=== PATIENT | male | born 1940 | race Caucasian/White ===

== ENCOUNTER 2015-11-28 13:05 | Outpatient (RCR) | payer MEDICARE ==
--- OUTSIDE RECORDS SUMMARY | 2015-11-21 09:10 | XMS REPORT | Continuity of Care Document ---
Author Author [facility] Organization [facility] Address Unknown Phone Unavailable Care Team Providers Care Residential Building Inspector Name Role Phone MARIS CARRANZA MD PCP Insurance Providers Payer Name Policy Number Subscriber Name Relationship Wps Medicare [id number] Tony Guan 18 Self / Same As Patient Blue Cross Mcr Supp [id number] Tony Guan 18 Self / Same As Patient Advance Directives Directive Response Recorded Date/Time Advance Directives No 02/25/14 11:07am Organ Donor No 02/25/14 11:07am Problems No problem information available. Medications Current Home Medications Medication Dose Units Route Directions Days/Qty Instructions Start Date Clopidogrel Bisulfate 75 Mg 75 Mg Oral 01/07/12 Valsartan/Hydrochlorothiazide 1 Each 1 Each Oral 01/07/12 Fluorometholone 5 Ml 5 Ml Ophthalmic 01/07/12 Latanoprost 2.5 Ml 2.5 Ml Ophthalmic 01/07/12 Simvastatin 20 Mg 20 Mg Oral 01/07/12 Ranolazine 1,000 Mg 500 Mg Oral Twice A Day 02/25/14 Rivaroxaban 20 Mg 20 Mg Oral Daily 02/25/14 Past Home Medications Medication Directions Ordered Status Ranitidine Hcl 50 Mg/2 Ml Vial, 75 Mg Oral 01/07/12 Discontinued Aspirin 81 Mg Tablet.dr, 81 Mg Oral 01/07/12 Discontinued Fluticasone Propionate 16 Gm Naspr, 16 Gm Nasal 01/07/12 Discontinued Social History Social History Problem Response Recorded Date/Time Alcohol Use Denies Use 02/25/2014 11:07am Recreational Drug Use No 02/25/2014 11:07am Recent Foreign Travel No 05/24/2015 9:08am Hospital Discharge Instructions No hospital discharge instructions. Plan of Care Prescriptions See Medication Section Functional Status No functional status results. Allergies, Adverse Reactions, Alerts No known allergies. Immunizations No immunization records. Vital Signs No known vital signs results. Results Laboratory Results Test Name Result Units Flags Reference Collection Date/Time Result Date/ Time Comments White Blood Count 7.0 10^3/uL 4.3-11.0 05/24/2015 9:36am 05/24/2015 9: 41am Red Blood Count 5.44 10^6/uL 4.35-5.85 05/24/2015 9:3605/24/2015 9: 41am Hemoglobin 15.2 G/DL 13.3-17.7 05/24/2015 9:3605/24/2015 9:41am Hematocrit 43 % 40-54 05/24/2015 9:3605/24/2015 9:41am Mean Corpuscular Volume 80 FL 80-99 05/24/2015 9:36am 05/24/2015 9: 41am Mean Corpuscular Hemoglobin 28 PG 25-34 05/24/2015 9:36am 05/24/2015 9: 41am Mean Corpuscular Hemoglobin Concent 35 G/DL 32-36 05/24/2015 9:3601/2016 9:41am Red Cell Distribution Width 14.6 % H 10.0-14.5 05/24/2015 9:36am 2015 9:41am Platelet Count 129 10^3/uL L 130-400 05/24/2015 9:36am 05/24/2015 9:41am Mean Platelet Volume 8.6 FL 7.4-10.4 05/24/2015 9:36am 05/24/2015 9: 41am Neutrophils (%) (Auto) 69 % 42-75 05/24/2015 9:36am 05/24/2015 9:41am Lymphocytes (%) (Auto) 21 % 12-44 05/24/2015 9:36am 05/24/2015 9:41am Monocytes (%) (Auto) 9 % 0-12 05/24/2015 9:3605/24/2015 9:41am Eosinophils (%) (Auto) 1 % 0-10 05/24/2015 9:3605/24/2015 9:41am Basophils (%) (Auto) 1 % 0-10 05/24/2015 9:3605/24/2015 9:41am Neutrophils # (Auto) 4.8 X 10^3 1.8-7.8 05/24/2015 9:3605/24/2015 9: 41am Lymphocytes # (Auto) 1.5 X 10^3 1.0-4.0 05/24/2015 9:3605/24/2015 9: 41am Monocytes # (Auto) 0.7 X 10^3 0.0-1.0 05/24/2015 9:3605/24/2015 9: 41am Eosinophils # (Auto) 0.1 10^3/uL 0.0-0.3 05/24/2015 9:3605/24/2015 9 :41am Basophils # (Auto) 0.0 10^3/uL 0.0-0.1 05/24/2015 9:3605/24/2015 9: 41am Sodium Level 139 MMOL/L 135-145 05/24/2015 9:3605/24/2015 10:14am Potassium Level 5.1 MMOL/L H 3.6-5.0 05/24/2015 9:3605/24/2015 10: 14am Chloride Level 105 MMOL/L 98-107 05/24/2015 9:3605/24/2015 10:14am Carbon Dioxide Level 26 MMOL/L 21-32 05/24/2015 9:3605/24/2015 10: 14am Anion Gap 8 MMOL/L 5-14 05/24/2015 9:3605/24/2015 10:14am Blood Urea Nitrogen 23 MG/DL H 7-18 05/24/2015 9:3605/24/2015 10:14am Creatinine 1.44 MG/DL H 0.60-1.30 05/24/2015 9:36am 05/24/2015 10:14am BUN/Creatinine Ratio 16 05/24/2015 9:3605/24/2015 10:14am Estimat Glomerular Filtration Rate 48 05/24/2015 9:36am 05/24/2015 10:14am GFR INTERPRETIVE DATA UNITS FOR ESTIMATED GFR (eGFR): mL/min/1.73 M2 REFERENCE RANGE FOR ESTIMATED GFR (eGFR) eGFR NORMAL eGFR >60 MODERATELY DECREASED eGFR 30-59 SEVERLY DECREASED eGFR 15-29 KIDNEY FAILURE <15 (OR DIALYSIS) Glucose Level 99 MG/DL 70-105 05/24/2015 9:36am 05/24/2015 10:14am Calcium Level 9.4 MG/DL 8.5-10.1 05/24/2015 9:36am 05/24/2015 10:14am Total Bilirubin 1.1 MG/DL H 0.1-1.0 05/24/2015 9:36am 05/24/2015 10:14am Alkaline Phosphatase 88 U/L 40-136 05/24/2015 9:36am 05/24/2015 10: 14am Aspartate Amino Transf (AST/SGOT) 22 U/L 5-34 05/24/2015 9:36am 2015 10:14am Alanine Aminotransferase (ALT/SGPT) 19 U/L 0-55 05/24/2015 9:36am 05/23 10:14am Total Protein 7.1 G/DL 6.4-8.2 05/24/2015 9:36am 05/24/2015 10:14am Albumin 4.3 G/DL 3.2-4.5 05/24/2015 9:36am 05/24/2015 10:14am Ferritin 55 ng/mL 25-300 05/24/2015 9:36am 05/25/2015 9:52am Test performed at [facility], CLIA# [id number] Iron Level 77 ug/dL 40-180 05/24/2015 9:36am 05/25/2015 9:51am Transferrin % Saturation 25 % 15-50 05/24/2015 9:36am 05/25/2015 9: 51am Total Iron Binding Capacity 313 ug/dL 280-380 05/24/2015 9:36am 2015 9:51am Unsaturated Iron Binding Capacity 236 ug/dL 55-450 05/24/2015 9:36am 9:51am Test performed at [facility], CLIA# [id number] Procedures No known history of procedures. Encounters Encounter Location Arrival/Admit Date Discharge/Depart Date Attending Provider Discharged Recurring [facility] 05/31/15 9:33am 11:59pm DAPHNE RICHARDSON MD
[2015-11-21 09:38] LABS: BASOPHILS % (AUTO) 0 % (0-10); EOSINOPHILS # (AUTO) 0.1 10^3/uL (0.0-0.3); EOSINOPHILS % (AUTO) 1 % (0-10); LYMPHOCYTES # (AUTO) 1.4 X 10^3 (1.0-4.0); LYMPHOCYTES % (AUTO) 19 % (12-44); MEAN CORPUSCULAR HEMOGLOBIN 29 PG (25-34); MEAN CORPUSCULAR HGB CONC 36 G/DL (32-36); MEAN CORPUSCULAR VOLUME 80 FL (80-99); MEAN PLATELET VOLUME 8.4 FL (7.4-10.4); MONOCYTES # (AUTO) 0.6 X 10^3 (0.0-1.0); MONOCYTES % (AUTO) 8 % (0-12); NEUTROPHILS # (AUTO) 5.2 X 10^3 (1.8-7.8); NEUTROPHILS % (AUTO) 71 % (42-75); PLATELET COUNT 129 10^3/uL (130-400); RED BLOOD COUNT 5.47 10^6/uL (4.35-5.85); RED CELL DISTRIBUTION WIDTH 13.8 % (10.0-14.5); WHITE BLOOD COUNT 7.3 10^3/uL (4.3-11.0)
[2015-11-21 10:08] LABS: ALBUMIN 4.2 G/DL (3.2-4.5); BILIRUBIN,TOTAL 0.8 MG/DL (0.1-1.0); CALCIUM 9.2 MG/DL (8.5-10.1); CREATININE SERUM 1.19 MG/DL (0.60-1.30); POTASSIUM 4.3 MMOL/L (3.6-5.0); TOTAL PROTEIN 7.1 G/DL (6.4-8.2)
[2015-11-21 11:44] LABS: %SAT TOTAL IRON BINDING CAPIC 20 % (15-50); TIBC 322 ug/dL (280-380)
[2015-11-21 17:23] LABS: UIBC 258 ug/dL (55-450)
[2015-11-22 07:52] LABS: FERRITIN 43 ng/mL (25-300)
[~2015-11-28 13:05] MED LIST: ASPI-875 PO; CLOP75TA28 PO; FLUO5DRO7 OP; FLUT16SP22 NS; LATA2.5D5 OP; RANO10003 PO; RIVA20TA2 PO; RNT25V2 PO; SIMV20TA3 PO; VALS1TAB74 PO
[2015-11-28] MEDS ORDERED: FLU TRIvalent (5 YOA+) 2016-17 (CANCER CTR) 0.5 ML IM ONE (14:00)
== END 2016-02-19 | disposition home or self-care (01) ==
LOC: ONC 13:05
PROVIDERS: ATTEND Internal Medicine Hematology & Oncology
DX: D50.9 Iron deficiency anemia, unspecified (principal); I10 Essential (primary) hypertension; I25.10 Atherosclerotic heart disease of native coronary artery without angina pectoris; Z95.0 Presence of cardiac pacemaker; Z95.5 Presence of coronary angioplasty implant and graft; Z79.899 Other long term (current) drug therapy; Z79.01 Long term (current) use of anticoagulants; Z23 Encounter for immunization
CPT/HCPCS: 80053; 82728; 83540; 85025; 90471; 99213

== ENCOUNTER 2016-03-28 18:14 | Emergency (ER) | payer MEDICARE ==
[~2016-03-28] VITALS: Ht 167.6 cm; Wt 88.5 kg
--- OUTSIDE RECORDS SUMMARY | 2016-03-28 18:19 | XMS REPORT | Continuity of Care Document ---
Author Author [facility] Organization [facility] Address Unknown Phone Unavailable Care Team Providers Care Dormitory Keeper Name Role Phone MARIS CARRANZA MD PCP Insurance Providers Payer Name Policy Number Subscriber Name Relationship Wps Medicare [id number] Tony Guan 18 Self / Same As Patient Blue Cross Mcr Supp [id number] Tony Guan 18 Self / Same As [...] 05/24/2015 9:36am 05/25/2015 9:52am Test performed at [facility], CLIA# [id number] Iron Level 77 ug/dL 40-180 05/24/2015 9:36am 05/25/2015 9:51am Transferrin % Saturation 25 % 15-50 05/24/2015 9:36am 05/25/2015 9: 51am Total Iron Binding Capacity 313 ug/dL 280-380 05/24/2015 9:36am 2015 9:51am Unsaturated Iron Binding Capacity 236 ug/dL 55-450 05/24/2015 9:36am 9:51am Test performed at [facility], CLIA# [id number] Procedures No known history of procedures. Encounters Encounter Location Arrival/Admit Date Discharge/Depart Date Attending Provider Discharged Recurring [facility] 05/31/15 9:33am 11:59pm DAPHNE RICHARDSON MD
[2016-03-28] MEDS ORDERED: AMIODARONE FOR BOLUS 300 MG in D5W 100 ML IVPB 100 ML IV ONE (18:45)
[2016-03-28] MEDS ORDERED: ASPIRIN 81 MG CHEW (CHILDREN'S ASA) PO ONE (18:45)
[2016-03-28 18:46] LABS: BASOPHILS # (AUTO) 0.1 10^3/uL (0.0-0.1); BASOPHILS % (AUTO) 1 % (0-10); EOSINOPHILS # (AUTO) 0.1 10^3/uL (0.0-0.3); EOSINOPHILS % (AUTO) 1 % (0-10); LYMPHOCYTES # (AUTO) 1.9 X 10^3 (1.0-4.0); LYMPHOCYTES % (AUTO) 21 % (12-44); MEAN CORPUSCULAR HEMOGLOBIN 28 PG (25-34); MEAN CORPUSCULAR HGB CONC 35 G/DL (32-36); MEAN CORPUSCULAR VOLUME 80 FL (80-99); MEAN PLATELET VOLUME 10.8 FL (7.4-10.4); MONOCYTES # (AUTO) 0.8 X 10^3 (0.0-1.0); MONOCYTES % (AUTO) 9 % (0-12); NEUTROPHILS % (AUTO) 68 % (42-75); PLATELET COUNT 127 10^3/uL (130-400); RED BLOOD COUNT 5.37 10^6/uL (4.35-5.85); RED CELL DISTRIBUTION WIDTH 14.6 % (10.0-14.5); WHITE BLOOD COUNT 8.8 10^3/uL (4.3-11.0)
[2016-03-28 18:56] LABS: INR 1.1 (0.8-1.4); PROTHROMBIN TIME PATIENT 13.6 SEC (12.2-14.7)
[2016-03-28] MEDS: AMIODARONE IV SOLUTION 200 ML IV SCH ×2 (18:56→19:07)
[2016-03-28] MEDS ORDERED: LORazepam INJ 2 MG/ML (ATIVAN) VIAL ONE (19:02)
[2016-03-28 19:07] LABS: ALANINE AMINOTRANSFERASE 21 U/L (0-55); ALBUMIN 4.1 G/DL (3.2-4.5); ANION GAP 11 MMOL/L (5-14); ASPARTATE AMINO TRANSFERASE 23 U/L (5-34); BILIRUBIN,TOTAL 0.8 MG/DL (0.1-1.0); BLOOD UREA NITROGEN 20 MG/DL (7-18); BUN/CREATININE RATIO 13; CALCIUM 8.7 MG/DL (8.5-10.1); CARBON DIOXIDE 19 MMOL/L (21-32); CHLORIDE 108 MMOL/L (98-107); CREATINE KINASE 88 U/L (30-200); CREATININE SERUM 1.55 MG/DL (0.60-1.30); GFR ESTIMATED 44; GLUCOSE 114 MG/DL (70-105); MAGNESIUM 2.2 MG/DL (1.8-2.4); POTASSIUM 4.2 MMOL/L (3.6-5.0); SODIUM 138 MMOL/L (135-145); TOTAL PROTEIN 7.1 G/DL (6.4-8.2)
--- NOTE | 2016-03-28 19:10 | Diagnostic Imaging Report ---
INDICATION: Chest pain, pacemaker. COMPARISON: 02/07/2016. FINDINGS: Single view of the chest demonstrates mild but stable cardiac enlargement. Lungs are clear. There is no pneumothorax. Pacemaker is stable. IMPRESSION: Minimal cardiac enlargement without pulmonary edema. Dictated by: Dictated on workstation # [id number]
[2016-03-28] MEDS ORDERED: LORazepam INJ 2 MG/ML (ATIVAN) VIAL IVP ONE ×2 (19:15→21:30)
[2016-03-28 19:26] LABS: TROPONIN I < 0.30 NG/ML (<0.30)
--- NOTE | 2016-03-28 19:29 | ED Cardiac General ---
History of Present Illness General Chief Complaint: Cardiac/General Problems Stated Complaint: DEFIBULATOR WENT OFF Nursing Triage Note: PT FROM HOME DEFIBRILLATOR HAD GONE OFF AT HOME.PT STATES HAD NEVER GONE OFF BEFORE. PT DENIES C/P AT THIS X. DR LEGGETT TO ROOM. Source: patient History of Present Illness Time seen by provider: 18:23 Initial Comments PT ARRIVES VIA POV FROM HOME PT HAD DEFIBRILLATOR AND AV PACEMAKER PLACED 02/01/[address] ESPINOZA AT [facility] IN [place], [place] IS TO HAVE PACEMAKER LEAD ADJUSTMENT THERE ON Saturday03/30/16 IT IS NOT FIRING CORRECTLY PT STATES TONIGHT HE WAS SITTING IN A CHAIR AND HAVING A "VERBAL DISPUTE" WHEN HIS DEFIBRILLATOR DISCHARGED ( HAS NOT HAPPENED BEFORE)--OCCURRED IMMEDIATELY PRIOR TO ARRIVAL--LESS THAN 10 MINUTES PT DENIES ANY SYMPTOMS BEFORE IT DISCHARGED, BUT FELT LIKE HIS HEART WAS POUNDING AFTERWARD NO CHEST PAIN NO SENSE OF PALPITATIONS NO SHORTNESS OF BREATH NO SWEATS NO NAUSEA PT HAS NO SYMPTOMS AT THIS TIME NO PCP ANYWHERE VISCOSE CELLAR WORKER: DR. ESPINOZA AT [facility] IN [place], [place] Allergies and Home Medications Allergies Coded Allergies: No Known Drug Allergies (Unverified , 01/07/12) Home Medications Clopidogrel Bisulfate 75 Mg Tablet 75 MG PO (Reported) Fluorometholone 5 Ml Drops.susp 5 ML OP (Reported) Latanoprost 2.5 Ml Drops 2.5 ML OP (Reported) Ranolazine 1,000 Mg Tab.sr.12h 500 MG PO BID (Reported) Rivaroxaban 20 Mg Tablet 20 MG PO DAILY (Reported) Simvastatin 20 Mg Tablet 20 MG PO (Reported) Valsartan/Hydrochlorothiazide 1 Each Tablet 1 EACH PO (Reported) Review of Systems Constitutional: no symptoms reported Respiratory: No Symptoms Reported Cardiovascular: See HPI Gastrointestinal: No Symptoms Reported Genitourinary: No Symptoms Reported Musculoskeletal: no symptoms reported Skin: no symptoms reported Psychiatric/Neurological: See HPI Endocrine: No Symptoms Reported Hematologic/Lymphatic: No Symptoms Reported Past Lojajnt-Gqrisd-Xcdyez Hx Patient Social History Alcohol Use: Denies Use Recreational Drug Use: No Smoking Status: Never a Smoker Recent Foreign Travel: No Contact w/Someone Who Travel: No Recent Infectious Disease Expo: No Recent Hopitalizations: Yes Immunizations Up To Date Date of Influenza Vaccine: Dec 13, 2015 Seasonal Allergies Seasonal Allergies: Yes Surgeries HX Surgeries: Yes (CARDIAC CATH-STENTS) Surgeries: Appendectomy, Cardiac, Coronary Stent, Defibrillator, Pacemaker Respiratory Hx Respiratory Disorders: Yes Respiratory Disorders: Pneumonia Cardiovascular Hx Cardiac Disorders: Yes (PACEMAKER/DEFIBRILLATOR) Cardiac Disorders: Coronary Artery Disease, High Cholesterol, Hypertension, Irregular Heartbeat Neurological Hx Neurological Disorders: No Genitourinary Hx Genitourinary Disorders: No Gastrointestinal Hx Gastrointestinal Disorders: No Musculoskeletal Hx Musculoskeletal Disorders: No Endocrine Hx Endocrine Disorders: No HEENT HX ENT Disorders: Yes (BI LAT CATARACT SURGERY) HEENT Disorders: Cataract Cancer Hx Cancer: No Psychosocial Hx Psychiatric Problems: No Integumentary HX Skin/Integumentary Disorder: No Blood Transfusions Hx Blood Disorders: No Family Medical History Family Medial History: FH: breast cancer 19 MOTHER FH: lung cancer 19 FATHER Physical Exam Vital Signs Vital Sign - Last 12Hours 03/28/16 18:30 Temp 97.7 Pulse 33 Resp 18 B/P 210/104 Pulse Ox 99 O2 Delivery Nasal Cannula Capillary Refill : Less Than 3 Seconds General Appearance: No Apparent Distress WD/WN Anxious HEENT: PERRL/EOMI Neck: Full Range of Motion Normal Inspection Non Tender SuppleNo JVD Respiratory: Normal Breath Sounds No Accessory Muscle Use No Respiratory Distress Cardiovascular: Regular Rate, Rhythm No Edema No JVD No Murmur Normal Peripheral Pulses Gastrointestinal: Normal Bowel Sounds No Organomegaly No Pulsatile Mass Non Tender Soft Extremity: Normal Capillary Refill Normal Inspection Normal Range of Motion Non Tender No Calf Tenderness No Pedal Edema Neurologic/Psychiatric: Alert Oriented x3 No Motor/Sensory Deficits supplier quality engineer II- XII Norm as Tested Skin: Normal Color Warm/Dry Progress/Results/Core Measures Results/Orders Lab Results Laboratory Tests Test 03/28/16 18:35 Range/Units Activated Partial Thromboplast Time 33 24-35 SEC Alanine Aminotransferase (ALT/SGPT) 21 0-55 U/L Albumin 4.1 3.2-4.5 G/DL Alkaline Phosphatase 110 40-136 U/L Anion Gap 11 5-14 MMOL/L Aspartate Amino Transf (AST/SGOT) 23 5-34 U/L B-Type Natriuretic Peptide 510.2 H <100.0 PG/ML BUN/Creatinine Ratio 13 Basophils # (Auto) 0.1 0.0-0.1 10^3/uL Basophils (%) (Auto) 1 0-10 % Blood Urea Nitrogen 20 H 7-18 MG/DL Calcium Level 8.7 8.5-10.1 MG/DL Carbon Dioxide Level 19 L 21-32 MMOL/L Chloride Level 108 H 98-107 MMOL/L Creatine Kinase MB 2.1 <6.6 NG/ML Creatinine 1.55 H 0.60-1.30 MG/DL Eosinophils # (Auto) 0.1 0.0-0.3 10^3/uL Eosinophils (%) (Auto) 1 0-10 % Estimat Glomerular Filtration Rate 44 Glucose Level 114 H 70-105 MG/DL Hematocrit 43 40-54 % Hemoglobin 14.8 13.3-17.7 G/DL INR Comment 1.1 0.8-1.4 Lymphocytes # (Auto) 1.9 1.0-4.0 X 10^3 Lymphocytes (%) (Auto) 21 12-44 % Magnesium Level 2.2 1.8-2.4 MG/DL Mean Corpuscular Hemoglobin 28 25-34 PG Mean Corpuscular Hemoglobin Concent 35 32-36 G/DL Mean Corpuscular Volume 80 80-99 FL Mean Platelet Volume 10.8 H 7.4-10.4 FL Monocytes # (Auto) 0.8 0.0-1.0 X 10^3 Monocytes (%) (Auto) 9 0-12 % Neutrophils # (Auto) 6.0 1.8-7.8 X 10^3 Neutrophils (%) (Auto) 68 42-75 % Platelet Count 127 L 130-400 10^3/uL Potassium Level 4.2 3.6-5.0 MMOL/L Prothrombin Time 13.6 12.2-14.7 SEC Red Blood Count 5.37 4.35-5.85 10^6/uL Red Cell Distribution Width 14.6 H 10.0-14.5 % Sodium Level 138 135-145 MMOL/L TSH Bromide Testing 3.85 0.35-4.94 UIU/ML Total Bilirubin 0.8 0.1-1.0 MG/DL Total Creatine Kinase 88 30-200 U/L Total Protein 7.1 6.4-8.2 G/DL Troponin I < 0.30 <0.30 NG/ML White Blood Count 8.8 4.3-11.0 10^3/uL My Orders Orders-DAVID LEGGETT DO Saline Lock/Iv-Start (03/28/16 18:39) Ekg Tracing (03/28/16 18:39) O2 (03/28/16 18:39) Monitor-Rhythm Ecg Trace Only (03/28/16 18:39) BNP (03/28/16 18:39) Cbc With Automated Diff (03/28/16 18:39) Comprehensive Metabolic Panel (03/28/16 18:39) Creatine Kinase (03/28/16 18:39) Creatine Kinase Mb (03/28/16 18:39) Magnesium (03/28/16 18:39) Protime With Inr (03/28/16 18:39) Partial Thromboplastin Time (03/28/16 18:39) Thyroid Analyzer (03/28/16 18:39) Troponin I (03/28/16 18:39) Chest 1 View, Ap/Pa Only (03/28/16 18:39) Amiodarone For Bolus (Cordarone Bolus) (03/28/16 18:45) Amiodarone Iv Solution (Nexterone Iv Delfina (03/28/16 18:45) Aspirin Chewable Tablet (Baby Aspirin Ch (03/28/16 18:45) Lorazepam Injection (Ativan Injection) (03/28/16 19:02) Lorazepam Injection (Ativan Injection) (03/28/16 19:15) Lorazepam Injection (Ativan Injection) (03/28/16 21:30) Medications Given in ED Current Medications Medications Dose Ordered Sig/Manohar Route Start Time Stop Time Status Last Admin Dose Admin Amiodarone HCl/ Dextrose 106 ml @ 636 mls/hr ONCE ONCE IV 03/28/16 18:45 03/28/16 18:54 DC 03/28/16 19:06 636 MLS/HR Aspirin 324 mg ONCE ONCE PO 03/28/16 18:45 03/28/16 18:47 DC 03/28/16 18:58 324 MG Lorazepam 1 mg ONCE ONCE IVP 03/28/16 19:15 03/28/16 19:16 DC 03/28/16 19:07 1 MG Lorazepam 1 mg ONCE ONCE IVP 03/28/16 21:30 03/28/16 21:34 DC 03/28/16 20:00 1 MG Vital Signs/I&O Vital Sign - Last 12Hours 03/28/16 03/28/16 03/28/16 18:30 18:30 20:00 Temp 97.7 Pulse 33 36 Resp 18 18 B/P 210/104 Pulse Ox 99 99 99 O2 Delivery Nasal Cannula Blood Pressure Mean: 139 Progress Note : Progress Note ON ARRIVAL, PT WITH VENTRICULAR PACING AT 35 BPM, 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 PT VERY BRIEFLY HAD SENSATION OF IRREGULAR HEART BEAT IMMEDIATELY PRIOR TO DEFIBRILLATOR DISCHARGE. PT WITH NO SYMPTOMS AFTERWARD, OTHER THAN BEING VERY ANXIOUS 1900--PT AGAIN IN V-FIB AND DEFIBRILLATOR DISCHARGED APPROPRIATELY, AND HAD THE EXACT SAME SCENARIO ABOVE. NO FURTHER EPISODES AFTER AMIODARONE STARTED ECG EKG : Comment EKG #1 AT 18:32:08--DONE IMMEDIATELY AFTER DEFIBRILLATOR DISCHARGED- 100% A-V PACED, RATE OF 85 EKG #2 AT 18:32:55--RATE 48, A-V PACED EKG #3 AT 18:34--RATE 35--A-V PACED WITH RANDOM P-WAVES WITHOUT CAPTURE EKG #4 AT 184--RATE ??--INTERMITTENT A-V PACED AND VENTRICULAR PACED RHYTHM EKG #5 AT 185--RATE 94--INTERMITTENT A-V PACED AND VENTRICULAR PACED RHYTHM EKG #6 AT 185--RATE 85--100% A-V PACED EKG #7 AT 1903--V-PACED INTO WIDE-COMPLEX TACHYCARDIA WITH DEFIBRILLATOR DISCHARGE EKG #8 AT 1903--RATE 85 --100% A-V PACED Diagnostic Imaging Comments CXR--MILD CARDIOMEGALY WITHOUT FAILURE PER RADIOLOGIST REPORT @ 1929 Reviewed: Reviewed by Me Departure Communication Progress Notes --SPOKE WITH DR. HARRISON, VISCOSE CELLAR WORKER NETWORK DESIGNER. HE ADVISES TO GIVE AMIODARONE BOLUS AND THEN DRIP, AND TRANSFER TO HIS VISCOSE CELLAR WORKER, DR. ESPINOZA. 1844--CALLED [facility]. ER [phone] 1854--SPOKE WITH DR. MARTINEZ, ER PHYSICIAN. SHE STATES THEY DO NOT DO ER-TO-ER TRANSFERS, ONLY DIRECT ADMITS. SHE ADVISES THAT I CALL DR. ESPINOZA DIRECTLY AT [phone]--SPOKE WITH DR. ESPINOZA, ACCEPTS PT FOR DIRECT ADMIT 1901--CALLED [facility] AGAIN FOR BED ASSIGNMENT--CALL TURNED OVER TO DELANEY NUÑEZ RN, BILL PEDDLER FOR BED ASSIGNMENT. 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 Referrals: NO,LOCAL PHYSICIAN (PCP/Family) Primary Care Physician DAVID LEGGETT DO Mar 28, 2016 19:29
[2016-03-28 20:00] VITALS: BP 162/90
== END 2016-03-28 20:00 | disposition short-term general hospital (02) ==
LOC: EDUNIT# 18:14 → ER 18:15
DX: T82.118A Breakdown (mechanical) of other cardiac electronic device, initial encounter (principal); R00.0 Tachycardia, unspecified; I10 Essential (primary) hypertension; I25.10 Atherosclerotic heart disease of native coronary artery without angina pectoris; Z79.899 Other long term (current) drug therapy; Z95.5 Presence of coronary angioplasty implant and graft
CPT/HCPCS: 36415; 71010; 80053; 82550; 82553; 83735; 83880; 84443; 84484; 85025; 85610; 85730; 93005; 93041; 96374; 96375; 96376

== ENCOUNTER 2016-03-31 19:24 | Emergency (ER) | payer MEDICARE ==
[~2016-03-31] VITALS: Ht 172.7 cm; Wt 81.6 kg
--- OUTSIDE RECORDS SUMMARY | 2016-03-31 19:29 | XMS REPORT | Continuity of Care Document ---
Author Author [facility] Organization [facility] Address Unknown Phone Unavailable Care Team Providers Care Loom Mechanic Name Role Phone MARIS CARRANZA MD PCP Insurance Providers Payer Name Policy Number Subscriber Name Relationship Wps Medicare [id number] Tnoy Guan 18 Self / Same As Patient Blue Cross Mcr Supp [id number] Tony Guan 18 Self / Same As [...] 05/24/2015 9:36am 05/25/2015 9:52am Test performed at [facility], CLIA# [id number] Iron Level 77 ug/dL 40-180 05/24/2015 9:36am 05/25/2015 9:51am Transferrin % Saturation 25 % 15-50 05/24/2015 9:36am 05/25/2015 9: 51am Total Iron Binding Capacity 313 ug/dL 280-380 05/24/2015 9:36am 2015 9:51am Unsaturated Iron Binding Capacity 236 ug/dL 55-450 05/24/2015 9:36am 9:51am Test performed at [facility], CLIA# [id number] Procedures No known history of procedures. Encounters Encounter Location Arrival/Admit Date Discharge/Depart Date Attending Provider Discharged Recurring [facility] 05/31/15 9:33am 11:59pm DAPHNE RICHARDSON MD
[2016-03-31 19:52] LABS: BASOPHILS % (AUTO) 1 % (0-10); EOSINOPHILS # (AUTO) 0.1 10^3/uL (0.0-0.3); EOSINOPHILS % (AUTO) 2 % (0-10); LYMPHOCYTES # (AUTO) 1.5 X 10^3 (1.0-4.0); LYMPHOCYTES % (AUTO) 17 % (12-44); MEAN CORPUSCULAR HEMOGLOBIN 27 PG (25-34); MEAN CORPUSCULAR HGB CONC 35 G/DL (32-36); MEAN CORPUSCULAR VOLUME 78 FL (80-99); MEAN PLATELET VOLUME 9.2 FL (7.4-10.4); MONOCYTES # (AUTO) 1.2 X 10^3 (0.0-1.0); MONOCYTES % (AUTO) 14 % (0-12); NEUTROPHILS % (AUTO) 68 % (42-75); PLATELET COUNT 136 10^3/uL (130-400); RED BLOOD COUNT 5.26 10^6/uL (4.35-5.85); RED CELL DISTRIBUTION WIDTH 14.5 % (10.0-14.5); WHITE BLOOD COUNT 8.8 10^3/uL (4.3-11.0)
[2016-03-31 20:02] LABS: INR 1.2 (0.8-1.4)
--- NOTE | 2016-03-31 20:06 | Diagnostic Imaging Report ---
INDICATION: Recent pacemaker placement. Chest pain COMPARISON: 03/28/2016 FINDINGS: Single frontal view of the chest demonstrates normal heart size and pulmonary vascularity. Left-sided AICD is noted. The lungs are well aerated and clear. No large pleural effusion or pneumothorax is seen. The visualized osseous structures show no acute abnormalities. IMPRESSION: 1. No acute cardiopulmonary process. Dictated by: Dictated on workstation # [id number]
[2016-03-31 20:24] LABS: ALANINE AMINOTRANSFERASE 14 U/L (0-55); ALBUMIN 3.9 G/DL (3.2-4.5); ANION GAP 10 MMOL/L (5-14); ASPARTATE AMINO TRANSFERASE 16 U/L (5-34); BILIRUBIN,TOTAL 1.3 MG/DL (0.1-1.0); BLOOD UREA NITROGEN 23 MG/DL (7-18); BUN/CREATININE RATIO 17; CALCIUM 8.6 MG/DL (8.5-10.1); CARBON DIOXIDE 20 MMOL/L (21-32); CHLORIDE 106 MMOL/L (98-107); CREATININE SERUM 1.36 MG/DL (0.60-1.30); GFR ESTIMATED 51; GLUCOSE 119 MG/DL (70-105); MAGNESIUM 2.1 MG/DL (1.8-2.4); SODIUM 136 MMOL/L (135-145); TOTAL PROTEIN 6.7 G/DL (6.4-8.2)
[2016-03-31 20:33] LABS: MYOGLOBIN SERUM 80.3 NG/ML (10.0-92.0)
[2016-03-31] MEDS ORDERED: ALPR0.25 PO (21:42)
--- NOTE | 2016-03-31 21:43 | ED Cardiac General ---
History of Present Illness General Chief Complaint: Cardiac/General Problems Stated Complaint: CHEST PAIN Nursing Triage Note: Pt had feeling of heat to back of head/neck. States he had the same feeling prior to discharge of his defibrillator last Sat. Pt was transferred to [facility] on Sat due to his defibrillator firing. Source: patient, old records Exam Limitations: no limitations History of Present Illness Time seen by provider: 19:30 Initial Comments This 75-year-old gentleman presents to the emergency room with primary complaint of feeling flushed and having palpitations. He was recently seen in this emergency room for arrhythmias and defibrillator dysfunction. He was transferred to [facility] under the care of his training director, Dr. Mcmullen. A pacemaker lead was replaced and he was dismissed home. Symptoms started approximately 15 minutes prior to arrival. Patient states the sensation is similar to prodrome see had before prior defibrillator shocks. He denies chest pain. Allergies and Home Medications Allergies Coded Allergies: No Known Drug Allergies (Unverified , 01/07/12) Home Medications Alprazolam 0.25 Mg Tablet #10 1-2 TAB PO Q6H PRN PRN ANXIETY Prescribed by: LEANN HWANG on 03/31/162141 Clopidogrel Bisulfate 75 Mg Tablet 75 MG PO (Reported) Fluorometholone 5 Ml Drops.susp 5 ML OP (Reported) Latanoprost 2.5 Ml Drops 2.5 ML OP (Reported) Ranolazine 1,000 Mg Tab.sr.12h 500 MG PO BID (Reported) Rivaroxaban 20 Mg Tablet 20 MG PO DAILY (Reported) Simvastatin 20 Mg Tablet 20 MG PO (Reported) Valsartan/Hydrochlorothiazide 1 Each Tablet 1 EACH PO (Reported) Review of Systems Constitutional: no symptoms reported EENTM: No Symptoms Reported Respiratory: See HPI Cardiovascular: See HPI Gastrointestinal: No Symptoms Reported Genitourinary: No Symptoms Reported Musculoskeletal: no symptoms reported Skin: other (postoperative changes to the left chest) Psychiatric/Neurological: Anxiety Endocrine: No Symptoms Reported Past Apqjqrg-Cworyz-Dixwhe Hx Patient Social History Alcohol Use: Denies Use Recreational Drug Use: No Smoking Status: Unknown if Ever Smoked Recent Foreign Travel: No Contact w/Someone Who Travel: No Recent Infectious Disease Expo: No Recent Hopitalizations: Yes Immunizations Up To Date Date of Influenza Vaccine: Dec 13, 2015 Seasonal Allergies Seasonal Allergies: Yes Surgeries HX Surgeries: Yes (CARDIAC CATH-STENTS) Surgeries: Appendectomy, Cardiac, Coronary Stent, Defibrillator, Pacemaker Respiratory Hx Respiratory Disorders: Yes Respiratory Disorders: Pneumonia Cardiovascular Hx Cardiac Disorders: Yes (PACEMAKER/DEFIBRILLATOR) Cardiac Disorders: Atrial Fibrillation, Coronary Artery Disease, High Cholesterol, Hypertension, Irregular Heartbeat Neurological Hx Neurological Disorders: No Genitourinary Hx Genitourinary Disorders: No Gastrointestinal Hx Gastrointestinal Disorders: No Musculoskeletal Hx Musculoskeletal Disorders: No Endocrine Hx Endocrine Disorders: No HEENT HX ENT Disorders: Yes (BI LAT CATARACT SURGERY) HEENT Disorders: Cataract Cancer Hx Cancer: No Psychosocial Hx Psychiatric Problems: No Integumentary HX Skin/Integumentary Disorder: No Blood Transfusions Hx Blood Disorders: No Family Medical History Family Medial History: FH: breast cancer 19 MOTHER FH: lung cancer 19 FATHER Physical Exam Vital Signs Vital Sign - Last 12Hours 03/31/16 19:24 Temp 97.5 Pulse 86 Resp 20 B/P 165/89 Pulse Ox 98 O2 Delivery Room Air Capillary Refill : Less Than 3 Seconds General Appearance: No Apparent Distress Mild Distress HEENT: PERRL/EOMI Normal ENT Inspection Neck: Normal Inspection Supple Respiratory: Lungs Clear Normal Breath Sounds No Accessory Muscle Use Cardiovascular: Regular Rate, Rhythm No Edema No Murmur Gastrointestinal: Non Tender Soft Extremity: Normal Inspection No Pedal Edema Neurologic/Psychiatric: Alert Oriented x3 No 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 as Tested Other (somewhat anxious) Skin: Warm/Dry Erythema Other (heat and erythema of the left upper chest operative sites.) Progress/Results/Core Measures Results/Orders Lab Results Laboratory Tests Test 03/31/16 19:40 Range/Units Activated Partial Thromboplast Time 38 H 24-35 SEC Alanine Aminotransferase (ALT/SGPT) 14 0-55 U/L Albumin 3.9 3.2-4.5 G/DL Alkaline Phosphatase 108 40-136 U/L Anion Gap 10 5-14 MMOL/L Aspartate Amino Transf (AST/SGOT) 16 5-34 U/L BUN/Creatinine Ratio 17 Basophils # (Auto) 0.0 0.0-0.1 10^3/uL Basophils (%) (Auto) 1 0-10 % Blood Urea Nitrogen 23 H 7-18 MG/DL C-Reactive Protein High Sensitivity 4.90 H 0.00-0.50 MG/DL Calcium Level 8.6 8.5-10.1 MG/DL Carbon Dioxide Level 20 L 21-32 MMOL/L Chloride Level 106 98-107 MMOL/L Creatinine 1.36 H 0.60-1.30 MG/DL Eosinophils # (Auto) 0.1 0.0-0.3 10^3/uL Eosinophils (%) (Auto) 2 0-10 % Estimat Glomerular Filtration Rate 51 Glucose Level 119 H 70-105 MG/DL Hematocrit 41 40-54 % Hemoglobin 14.4 13.3-17.7 G/DL INR Comment 1.2 0.8-1.4 Lactic Acid Level 1.9 0.5-2.0 MMOL/L Lymphocytes # (Auto) 1.5 1.0-4.0 X 10^3 Lymphocytes (%) (Auto) 17 12-44 % Magnesium Level 2.1 1.8-2.4 MG/DL Mean Corpuscular Hemoglobin 27 25-34 PG Mean Corpuscular Hemoglobin Concent 35 32-36 G/DL Mean Corpuscular Volume 78 L 80-99 FL Mean Platelet Volume 9.2 7.4-10.4 FL Monocytes # (Auto) 1.2 H 0.0-1.0 X 10^3 Monocytes (%) (Auto) 14 H 0-12 % Myoglobin 80.3 10.0-92.0 NG/ML Neutrophils # (Auto) 6.0 1.8-7.8 X 10^3 Neutrophils (%) (Auto) 68 42-75 % Platelet Count 136 130-400 10^3/uL Potassium Level 4.0 3.6-5.0 MMOL/L Prothrombin Time 15.0 H 12.2-14.7 SEC Red Blood Count 5.26 4.35-5.85 10^6/uL Red Cell Distribution Width 14.5 10.0-14.5 % Sodium Level 136 135-145 MMOL/L Total Bilirubin 1.3 H 0.1-1.0 MG/DL Total Protein 6.7 6.4-8.2 G/DL Troponin I < 0.30 <0.30 NG/ML White Blood Count 8.8 4.3-11.0 10^3/uL My Orders Orders-LEANN MORENO MD Cbc With Automated Diff (03/31/16 19:35) Magnesium (03/31/16 19:35) Chest 1 View, Ap/Pa Only (03/31/16 19:35) Ekg Tracing (03/31/16 19:35) Cardiac Profile 1 (03/31/16 19:35) Comprehensive Metabolic Panel (03/31/16 19:35) Myoglobin Serum (03/31/16 19:35) Protime With Inr (03/31/16 19:35) Partial Thromboplastin Time (03/31/16 19:35) O2 (03/31/16 19:35) Monitor-Rhythm Ecg Trace Only (03/31/16 19:35) Saline Lock/Iv-Start (03/31/16 19:35) Hs C Reactive Protein (03/31/16 19:35) Lactic Acid Analyzer (03/31/16 19:35) Alprazolam Tablet (Xanax Tablet) (03/31/16 21:45) Medications Given in ED Current Medications Medications Dose Ordered Sig/Manohar Route Start Time Stop Time Status Last Admin Dose Admin Alprazolam 0.25 mg ONCE ONCE PO 03/31/16 21:45 03/31/16 21:46 DC 03/31/16 21:45 0.25 MG Vital Signs/I&O Vital Sign - Last 12Hours 03/31/16 03/31/16 19:24 21:50 Temp 97.5 97.5 Pulse 86 78 Resp 20 20 B/P 165/89 Pulse Ox 98 98 O2 Delivery Room Air Blood Pressure Mean: 114 Progress Note : Progress Note Patient had no chest pain or arrhythmias while in the emergency room. Case was reviewed with Dr. Reinoso who advises direct consultation with Dr. Mcmullen. Dr. Mcmullen was contacted and advised no further treatment in the emergency room. He will evaluate the transmission from the recording device and reviewed with patient of necessary. Patient's notes that he is extremely anxious at times regarding his health conditions. She requests something to help treat his anxiety. Xanax was given to the ER. ECG Initial ECG Impression Date: Mar 31, 2016 Initial ECG Impression Time: 19:29 Initial ECG Rate: 87 Initial ECG Rhythm: Normal Sinus Comment Sinus rhythm with no ST elevation or depression. Right bundle branch block. No significant abnormal intervals. There is artifact. Diagnostic Imaging Diagonstic Imaging: Xray Plain Films/CT/US/NM/MRI: chest Comments Chest x-ray viewed by me and report reviewed. See report below: NAME: TONY IRVING [facility] REC#: [id number] PT STATUS: REG ER : 1940 PHYSICIAN: LEANN MORENO MD ADMIT DATE: 03/31/16/ER Signed Date of Exam: 03/31/16 CHEST 1 VIEW, AP/PA ONLY INDICATION: Recent pacemaker placement. Chest pain COMPARISON: 03/28/2016 FINDINGS: Single frontal view of the chest demonstrates normal heart size and pulmonary vascularity. Left-sided AICD is noted. The lungs are well aerated and clear. No large pleural effusion or pneumothorax is seen. The visualized osseous structures show no acute abnormalities. IMPRESSION: 1. No acute cardiopulmonary process. Dictated by: Dictated on workstation # [id number] Dict: 03/31/162004 Trans: 03/31/16 2157 PADMINI [id number] Interpreted by: IRMA HAYES Departure Impression Impression: Primary Impression: Palpitations Additional Impression: Anxiety Disposition: 01 HOME, SELF-CARE Condition: Improved Departure-Patient Inst. Decision time for Depature: 21:30 Referrals: NO,LOCAL PHYSICIAN (PCP/Family) Primary Care Physician Patient Instructions: Generalized Anxiety Disorder Add. Discharge Instructions: Continue all medications as previously prescribed. Follow-up with your physicians as previously directed. I suggest establishing with a local primary care provider and a local delinquency prevention social worker who can be familiar with your health problems should you have urgent or emergent issues while in [place]. Use Xanax as prescribed for anxiety. If you use Xanax before bed, be certain to use your CPAP. Return to the ER if you have worsening symptoms. All discharge instructions reviewed with patient and/or family. Voiced understanding. Scripts Alprazolam (Xanax)0.25 Mg Tablet1-2 Tab PO Q6H PRN ANXIETY #10 TAB Prov:LEANN MORENO MD 03/31/16 LEANN MORENO MD Mar 31, 2016 21:43
[2016-03-31] MEDS ORDERED: ALPRAZolam 0.25 MG (XANAX) TAB PO ONE (21:45)
[2016-03-31 21:50] VITALS: BP 170/92
== END 2016-03-31 21:50 | disposition home or self-care (01) ==
LOC: EDUNIT# 19:24 → ER 19:26
DX: R00.2 Palpitations (principal); F41.9 Anxiety disorder, unspecified; I48.2 Chronic atrial fibrillation; I11.9 Hypertensive heart disease without heart failure; Z95.810 Presence of automatic (implantable) cardiac defibrillator; Z95.5 Presence of coronary angioplasty implant and graft
CPT/HCPCS: 36415; 71010; 80053; 83605; 83735; 83874; 84484; 85025; 85610; 85730; 86141; 93005; 93041

== ENCOUNTER 2016-07-02 09:12 | Outpatient (RCR) | payer MEDICARE ==
[2016-05-14 09:24] LABS: BASOPHILS % (AUTO) 1 % (0-10); EOSINOPHILS # (AUTO) 0.1 10^3/uL (0.0-0.3); EOSINOPHILS % (AUTO) 2 % (0-10); LYMPHOCYTES # (AUTO) 1.4 X 10^3 (1.0-4.0); LYMPHOCYTES % (AUTO) 22 % (12-44); MEAN CORPUSCULAR HEMOGLOBIN 27 PG (25-34); MEAN CORPUSCULAR HGB CONC 35 G/DL (32-36); MEAN CORPUSCULAR VOLUME 78 FL (80-99); MEAN PLATELET VOLUME 8.7 FL (7.4-10.4); MONOCYTES # (AUTO) 0.6 X 10^3 (0.0-1.0); MONOCYTES % (AUTO) 9 % (0-12); NEUTROPHILS # (AUTO) 4.3 X 10^3 (1.8-7.8); NEUTROPHILS % (AUTO) 67 % (42-75); PLATELET COUNT 124 10^3/uL (130-400); RED BLOOD COUNT 5.43 10^6/uL (4.35-5.85); RED CELL DISTRIBUTION WIDTH 14.9 % (10.0-14.5); WHITE BLOOD COUNT 6.4 10^3/uL (4.3-11.0)
[2016-05-14 10:04] LABS: ALBUMIN 4.2 G/DL (3.2-4.5); BILIRUBIN,TOTAL 0.8 MG/DL (0.1-1.0); CALCIUM 9.1 MG/DL (8.5-10.1); CREATININE SERUM 1.31 MG/DL (0.60-1.30); POTASSIUM 4.8 MMOL/L (3.6-5.0); TOTAL PROTEIN 7.4 G/DL (6.4-8.2)
[~2016-07-02 09:12] MED LIST changes: +ALPR0.25 PO
[2016-07-02 09:53] LABS: BASOPHILS % (AUTO) 1 % (0-10); EOSINOPHILS # (AUTO) 0.1 10^3/uL (0.0-0.3); EOSINOPHILS % (AUTO) 1 % (0-10); LYMPHOCYTES # (AUTO) 1.4 X 10^3 (1.0-4.0); LYMPHOCYTES % (AUTO) 18 % (12-44); MEAN CORPUSCULAR HEMOGLOBIN 28 PG (25-34); MEAN CORPUSCULAR HGB CONC 34 G/DL (32-36); MEAN CORPUSCULAR VOLUME 81 FL (80-99); MEAN PLATELET VOLUME 9.2 FL (7.4-10.4); MONOCYTES # (AUTO) 0.6 X 10^3 (0.0-1.0); MONOCYTES % (AUTO) 8 % (0-12); NEUTROPHILS # (AUTO) 5.5 X 10^3 (1.8-7.8); NEUTROPHILS % (AUTO) 72 % (42-75); PLATELET COUNT 137 10^3/uL (130-400); RED BLOOD COUNT 5.09 10^6/uL (4.35-5.85); RED CELL DISTRIBUTION WIDTH 15.8 % (10.0-14.5); WHITE BLOOD COUNT 7.6 10^3/uL (4.3-11.0)
== END 2016-08-12 | disposition home or self-care (01) ==
LOC: ONC 09:12
PROVIDERS: ATTEND Internal Medicine Hematology & Oncology
DX: D50.9 Iron deficiency anemia, unspecified (principal); I10 Essential (primary) hypertension; I25.10 Atherosclerotic heart disease of native coronary artery without angina pectoris; Z95.0 Presence of cardiac pacemaker; Z95.5 Presence of coronary angioplasty implant and graft; Z79.899 Other long term (current) drug therapy; Z79.01 Long term (current) use of anticoagulants
CPT/HCPCS: 36415; 80053; 82728; 83540; 85025; 99213

== ENCOUNTER 2016-08-22 09:36 | Outpatient (RCR) | payer MEDICARE ==
[2016-08-16 09:23] LABS: BASOPHILS % (AUTO) 1 % (0-10); EOSINOPHILS # (AUTO) 0.1 10^3/uL (0.0-0.3); EOSINOPHILS % (AUTO) 2 % (0-10); LYMPHOCYTES # (AUTO) 1.4 X 10^3 (1.0-4.0); LYMPHOCYTES % (AUTO) 20 % (12-44); MEAN CORPUSCULAR HEMOGLOBIN 28 PG (25-34); MEAN CORPUSCULAR HGB CONC 34 G/DL (32-36); MEAN CORPUSCULAR VOLUME 83 FL (80-99); MEAN PLATELET VOLUME 8.9 FL (7.4-10.4); MONOCYTES # (AUTO) 0.8 X 10^3 (0.0-1.0); MONOCYTES % (AUTO) 10 % (0-12); NEUTROPHILS # (AUTO) 4.9 X 10^3 (1.8-7.8); NEUTROPHILS % (AUTO) 68 % (42-75); PLATELET COUNT 121 10^3/uL (130-400); RED BLOOD COUNT 5.05 10^6/uL (4.35-5.85); RED CELL DISTRIBUTION WIDTH 15.1 % (10.0-14.5); WHITE BLOOD COUNT 7.2 10^3/uL (4.3-11.0)
[2016-08-16 09:59] LABS: ALBUMIN 4.1 GM/DL (3.2-4.5); BILIRUBIN,TOTAL 0.9 MG/DL (0.1-1.0); CALCIUM 9.5 MG/DL (8.5-10.1); CREATININE SERUM 1.4 MG/DL (0.60-1.30); POTASSIUM 4.9 MMOL/L (3.6-5.0); TOTAL PROTEIN 7.4 GM/DL (6.4-8.2)
== END 2016-11-10 | disposition home or self-care (01) ==
LOC: ONC 09:36
PROVIDERS: ATTEND Internal Medicine Hematology & Oncology
DX: D50.9 Iron deficiency anemia, unspecified (principal); I10 Essential (primary) hypertension; I25.10 Atherosclerotic heart disease of native coronary artery without angina pectoris; Z95.0 Presence of cardiac pacemaker; Z95.5 Presence of coronary angioplasty implant and graft; Z79.899 Other long term (current) drug therapy; Z79.01 Long term (current) use of anticoagulants
CPT/HCPCS: 36415; 80053; 82728; 83540; 85025; 99213

== ENCOUNTER → 2017-03-20 | Outpatient (RCR) | payer MEDICARE ==
[2016-12-20 10:04] LABS: BASOPHILS # (AUTO) 0.1 10^3/uL (0.0-0.1); BASOPHILS % (AUTO) 1 % (0-10); EOSINOPHILS # (AUTO) 0.1 10^3/uL (0.0-0.3); EOSINOPHILS % (AUTO) 2 % (0-10); HEMATOCRIT 39 % (40-54); HEMOGLOBIN 13.5 G/DL (13.3-17.7); LYMPHOCYTES # (AUTO) 1.3 X 10^3 (1.0-4.0); LYMPHOCYTES % (AUTO) 18 % (12-44); MEAN CORPUSCULAR HEMOGLOBIN 30 PG (25-34); MEAN CORPUSCULAR HGB CONC 35 G/DL (32-36); MEAN CORPUSCULAR VOLUME 85 FL (80-99); MEAN PLATELET VOLUME 8.7 FL (7.4-10.4); MONOCYTES # (AUTO) 0.9 X 10^3 (0.0-1.0); MONOCYTES % (AUTO) 13 % (0-12); NEUTROPHILS # (AUTO) 4.5 X 10^3 (1.8-7.8); NEUTROPHILS % (AUTO) 66 % (42-75); PLATELET COUNT 121 10^3/uL (130-400); RED BLOOD COUNT 4.58 10^6/uL (4.35-5.85); RED CELL DISTRIBUTION WIDTH 13.9 % (10.0-14.5); WHITE BLOOD COUNT 6.8 10^3/uL (4.3-11.0)
[2016-12-20 10:25] LABS: BILIRUBIN,TOTAL 0.8 MG/DL (0.1-1.0); CREATININE SERUM 1.26 MG/DL (0.60-1.30); POTASSIUM 4.2 MMOL/L (3.6-5.0); TOTAL PROTEIN 7.1 GM/DL (6.4-8.2)
[2016-12-25 11:59] LABS: ABSOLUTE RETIC # 98 10e9/L (24-90); BASOPHILS % (AUTO) 1 % (0-10); EOSINOPHILS # (AUTO) 0.1 10^3/uL (0.0-0.3); EOSINOPHILS % (AUTO) 1 % (0-10); HEMATOCRIT 39 % (40-54); HEMOGLOBIN 13.3 G/DL (13.3-17.7); LYMPHOCYTES # (AUTO) 1.3 X 10^3 (1.0-4.0); LYMPHOCYTES % (AUTO) 22 % (12-44); MEAN CORPUSCULAR HEMOGLOBIN 29 PG (25-34); MEAN CORPUSCULAR HGB CONC 34 G/DL (32-36); MEAN CORPUSCULAR VOLUME 85 FL (80-99); MEAN PLATELET VOLUME 8.9 FL (7.4-10.4); MONOCYTES # (AUTO) 0.6 X 10^3 (0.0-1.0); MONOCYTES % (AUTO) 10 % (0-12); NEUTROPHILS % (AUTO) 66 % (42-75); PLATELET COUNT 133 10^3/uL (130-400); RED BLOOD COUNT 4.64 10^6/uL (4.35-5.85); RED CELL DISTRIBUTION WIDTH 13.9 % (10.0-14.5); RETICULOCYTE % 2.12 % (0.50-2.40); WHITE BLOOD COUNT 6.1 10^3/uL (4.3-11.0)
[2016-12-25 12:41] LABS: BASOPHILS % (MANUAL) 1 %; EOSINOPHILS % (MANUAL) 3 %; LYMPHOCYTES % (MANUAL) 28 %; MONOCYTES % (MANUAL) 7 %; NEUTROPHILS % (MANUAL) 61 %; POLYCHROMASIA SLIGHT
[2017-03-20 08:37] LABS: ABSOLUTE RETIC # 71 10e9/L (24-90); BASOPHILS % (AUTO) 1 % (0-10); EOSINOPHILS # (AUTO) 0.1 10^3/uL (0.0-0.3); EOSINOPHILS % (AUTO) 1 % (0-10); HEMATOCRIT 38 % (40-54); HEMOGLOBIN 12.4 G/DL (13.3-17.7); LYMPHOCYTES # (AUTO) 1.6 X 10^3 (1.0-4.0); LYMPHOCYTES % (AUTO) 22 % (12-44); MEAN CORPUSCULAR HEMOGLOBIN 25 PG (25-34); MEAN CORPUSCULAR HGB CONC 33 G/DL (32-36); MEAN CORPUSCULAR VOLUME 75 FL (80-99); MEAN PLATELET VOLUME 8.7 FL (7.4-10.4); MONOCYTES # (AUTO) 0.7 X 10^3 (0.0-1.0); MONOCYTES % (AUTO) 10 % (0-12); NEUTROPHILS # (AUTO) 4.6 X 10^3 (1.8-7.8); NEUTROPHILS % (AUTO) 66 % (42-75); PLATELET COUNT 156 10^3/uL (130-400); RED BLOOD COUNT 4.99 10^6/uL (4.35-5.85); RED CELL DISTRIBUTION WIDTH 14.3 % (10.0-14.5); RETICULOCYTE % 1.42 % (0.50-2.40)
[2017-03-20 08:59] LABS: ALBUMIN 4.1 GM/DL (3.2-4.5); BILIRUBIN,TOTAL 0.9 MG/DL (0.1-1.0); CALCIUM 8.8 MG/DL (8.5-10.1); CREATININE SERUM 1.47 MG/DL (0.60-1.30); POTASSIUM 4.3 MMOL/L (3.6-5.0); TOTAL PROTEIN 7.7 GM/DL (6.4-8.2)
== END | disposition home or self-care (01) ==
LOC: ONC 12-20 09:49
PROVIDERS: ATTEND Internal Medicine Hematology & Oncology
DX: D50.9 Iron deficiency anemia, unspecified (principal); I10 Essential (primary) hypertension; I25.10 Atherosclerotic heart disease of native coronary artery without angina pectoris; Z95.0 Presence of cardiac pacemaker; Z95.5 Presence of coronary angioplasty implant and graft; Z79.899 Other long term (current) drug therapy; Z79.01 Long term (current) use of anticoagulants
CPT/HCPCS: 80053; 82728; 83540; 83550; 85007; 85025; 85027; 85045; 99213

== ENCOUNTER 2017-05-28 09:15 | Outpatient (RCR) | payer MEDICARE ==
[~2017-05-28 09:15] MED LIST changes: +FERRIC CARBOXYMALTOSE (CANCER) 750 MG in NS (IVPB) CANCER CENTER 250 ML IV SCH
[2017-05-28 10:17] LABS: BASOPHILS # (AUTO) 0.1 10^3/uL (0.0-0.1); BASOPHILS % (AUTO) 1 % (0-10); EOSINOPHILS # (AUTO) 0.1 10^3/uL (0.0-0.3); EOSINOPHILS % (AUTO) 2 % (0-10); HEMATOCRIT 43 % (40-54); HEMOGLOBIN 14.6 G/DL (13.3-17.7); LYMPHOCYTES # (AUTO) 1.2 X 10^3 (1.0-4.0); LYMPHOCYTES % (AUTO) 20 % (12-44); MEAN CORPUSCULAR HEMOGLOBIN 27 PG (25-34); MEAN CORPUSCULAR HGB CONC 34 G/DL (32-36); MEAN CORPUSCULAR VOLUME 81 FL (80-99); MEAN PLATELET VOLUME 9.6 FL (7.4-10.4); MONOCYTES # (AUTO) 0.7 X 10^3 (0.0-1.0); MONOCYTES % (AUTO) 11 % (0-12); NEUTROPHILS # (AUTO) 4.1 X 10^3 (1.8-7.8); NEUTROPHILS % (AUTO) 67 % (42-75); PLATELET COUNT 117 10^3/uL (130-400); RED BLOOD COUNT 5.34 10^6/uL (4.35-5.85); RED CELL DISTRIBUTION WIDTH 18.7 % (10.0-14.5); WHITE BLOOD COUNT 6.1 10^3/uL (4.3-11.0)
== END 2017-06-24 | disposition home or self-care (01) ==
LOC: ONC 09:15
PROVIDERS: ATTEND Internal Medicine Hematology & Oncology
DX: D50.9 Iron deficiency anemia, unspecified (principal); I25.10 Atherosclerotic heart disease of native coronary artery without angina pectoris; I12.9 Hypertensive chronic kidney disease with stage 1 through stage 4 chronic kidney disease, or unspecified chronic kidney disease; N18.3 Chronic kidney disease, stage 3 (moderate); Z95.5 Presence of coronary angioplasty implant and graft; Z79.899 Other long term (current) drug therapy; Z79.01 Long term (current) use of anticoagulants; Z79.02 Long term (current) use of antithrombotics/antiplatelets; Z95.810 Presence of automatic (implantable) cardiac defibrillator
CPT/HCPCS: 36415; 85025; 96365

== ENCOUNTER 2017-08-20 18:37 | Emergency (ER) | payer MEDICARE ==
[~2017-08-20] VITALS: Ht 172.7 cm; Wt 81.6 kg
[~2017-08-20 18:37] MED LIST changes: -FERRIC CARBOXYMALTOSE (CANCER) 750 MG in NS (IVPB) CANCER CENTER 250 ML IV SCH
[2017-08-20] MEDS ORDERED: KETOROLAC 30 MG/ML VIAL IM STA (19:05)
[2017-08-20] MEDS ORDERED: KETOROLAC 30 MG/ML VIAL ONE (19:06)
[2017-08-20] MEDS ORDERED: fentaNYL INJECTION 100 MCG/2 ML AMP IVP STA (19:46)
[2017-08-20] MEDS ORDERED: NS IV 1000 ML 1,000 ML IV ONE (19:46)
--- NOTE | 2017-08-20 19:46 | ED Back Pain ---
General Chief Complaint: Lower Extremity Stated Complaint: HIP/GROIN PAIN L SIDE Nursing Triage Note: PT BROUGHT ED VIA WHEELCHAIR BY AND FAMILY. PT C/O L HIP PAIN THAT IS RADIATING DOWN THE LEFT LEG. PT RATES PAIN 2/10 WHEN RESTING, BUT 10/10 WHEN WALKING. PT IS UNSURE WHAT HAPPENED TO CAUSE PAIN. STATES HE FELL ABOUT A WEEK AGOON A CONCRETE FLOOE, BUT HAS ALSO BEEN DOING A LOT OF WORK WHERE HE HAS BEEN CRAWLING AROUND ON THE GROUND. Nursing Sepsis Screen: No Definite Risk Source of Information: Patient Exam Limitations: No Limitations History of Present Illness Date Seen by Provider: Aug 20, 2017 Time Seen by Provider: 19:00 Initial Comments Here with report of left low back pain that radiates across the left hip and down the left leg. Not too bad when resting but if he has to move it gets quite severe. Had a fall about a week ago that was okay after that. A couple days ago he was working under his 's car for about 6 hours rolling on the concrete and it was after he got up from that that he had the severe pain. Has been going on since then. Never had anything like this before. 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 Location: Lumbar Spine, Paraspinous Muscles Timing/Duration: 2-3 Days, Changing Over Time Severity: Moderate Pain/Injury Location: Back Radiation: Buttocks, Upper Legs Method of Injury: Unknown Modifying Factors: Improves With Immobilization; Worse With Movement Associated Symptoms: muscle spasms; No weakness; tingling in legs/feet; No sensory/motor loss; lower back pain; No loss of bladder control, No loss of bowel control Allergies and Home Medications Allergies Coded Allergies: No Known Drug Allergies (Unverified , 01/07/12) Home Medications Alprazolam 0.25 Mg Tablet, 1-2 TAB PO Q6H PRN for ANXIETY Prescribed by: LEANN HWANG on 03/31/162141 Ranolazine 1,000 Mg Tab.sr.12h, 500 MG PO BID, (Reported) Rivaroxaban 20 Mg Tablet, 20 MG PO DAILY, (Reported) Patient Home Medication List Home Medication List Reviewed: Yes Constitutional: see HPI; No chills, No fever Respiratory: no symptoms reported Cardiovascular: no symptoms reported Gastrointestinal: No abdominal pain, No nausea, No vomiting Genitourinary: no symptoms reported Musculoskeletal: see HPI, back pain, muscle pain, muscle stiffness; No muscle weakness Psychiatric/Neurological: See HPI, Tingling (left thigh); Denies Weakness Past Iwtyznn-Jlbpfx-Oendwb Hx Past Med/Social Hx: Reviewed Nursing Past Med/Soc Hx Patient Social History Alcohol Use: Denies Use Recreational Drug Use: No Recent Foreign Travel: No Contact w/Someone Who Travel: No Recent Infectious Disease Expo: No Recent Hopitalizations: Yes Physical Abuse: No Sexual Abuse: No Immunizations Up To Date Date of Influenza Vaccine: Dec 13, 2015 Seasonal Allergies Seasonal Allergies: Yes Past Medical History Surgeries: Yes (CARDIAC CATH-STENTS) Appendectomy, Cardiac, Coronary Stent, Defibrillator, Pacemaker Respiratory: Yes Pneumonia Cardiac: Yes (PACEMAKER/DEFIBRILLATOR) Atrial Fibrillation, Coronary Artery Disease, High Cholesterol, Hypertension, Irregular Heartbeat Neurological: No Gastrointestinal: No Musculoskeletal: No Endocrine: No Cataract Cancer: No Psychosocial: No Nursing Suicide Risk Score: 0 Integumentary: No Blood Disorders: No Family Medical History Reviewed Nursing Family Hx FH: breast cancer 19 MOTHER FH: lung cancer 19 FATHER No Pertinent Family Hx Physical Exam Vital Signs Vital Signs - First Documented 08/20/17 18:40 Temp 98.4 Pulse 66 Resp 17 B/P (MAP) 174/89 (117) O2 Delivery Room Air Capillary Refill : Less Than 3 Seconds Height, Weight, BMI Height: 5', 8" Weight: 180lbs 0.0oz, 81.437139os Method:Stated ,31.2BMI General Appearance: No Apparent Distress, WD/WN HEENT: PERRL/EOMI, Pharynx Normal Neck: Non Tender, Supple Cardiovascular: Regular Rate, Rhythm, No Murmur Respiratory: Lungs Clear, Normal Breath Sounds Gastrointestinal: Non Tender, Soft Back: Muscle Spasm; No Vertebral Tenderness; Other (tender to the left SI joint ) Extremity: Normal Range of Motion, Non Tender Neurologic/Psychiatric: Alert, Oriented x3, No Motor/Sensory Deficits Skin: Normal Color, Warm/Dry Progress/Results/Core Measures Results/Orders My Orders Orders - KAYLEIGH AVENDANO MD Ketorolac Injection (Toradol Injection) (08/20/17 19:05) Ct Lumbar Spine Wo (08/20/17 19:05) Ketorolac Injection (Toradol Injection) (08/20/17 19:06) Saline Lock/Iv-Start (08/20/17 19:46) Ns Iv 1000 Ml (Sodium Chloride 0.9%) (08/20/17 19:46) Fentanyl Injection (Sublimaze Injection (08/20/17 19:46) Vital Signs/I&O 08/20/17 18:40 Temp 98.4 Pulse 66 Resp 17 B/P (MAP) 174/89 (117) O2 Delivery Room Air Blood Pressure Mean: 117 Progress Progress Note : Progress Note Seen and evaluated. Toradol [address] lumbar spine and x-ray of pelvis and left hip ordered. Monitor patient. 2004: Overall much improved after Toradol. I did review the results of the CT and x-rays with the patient and family. He does need follow-up with his primary and I will send a copy of the chart to Dr. Troncoso. Also may benefit from orthopedic evaluation for the lumbar spine findings. This is discussed with the patient as well. I will give him information on Dr. GROVES. Discharged home with return precautions. Patient verbalize understanding instructions and agreement with plan. Prednisone 40 mg by mouth given. Diagnostic Imaging Diagonstic Imaging: CT Plain Films/CT/US/NM/MRI: other Comments [facility] [place], [place] NAME: TONY IRVING [facility] REC#: [id number] PT STATUS: REG ER : 1940 PHYSICIAN: KAYLEIGH AVENDANO MD ADMIT DATE: 08/20/17/ER Draft Date of Exam:08/20/17 CT LUMBAR SPINE WO PROCEDURE: CT lumbar spine without contrast. TECHNIQUE: Multiple contiguous axial images were obtained through the lumbar spine without the use of intravenous contrast. Sagittal and coronal reformations were then performed. INDICATION: Left hip pain radiating into the left leg. Curvature and alignment is normal. Vertebral body heights are maintained. No acute fracture is seen. There is multilevel degenerative disc disease with variable disc space narrowing and marginal spurring. There appears to be a transitional lumbosacral vertebral body. There appears to be sacralization of L5. Please see lateral reconstructions for appropriate labeling. L1-2: No central canal or neuroforaminal stenosis is seen. L2-3: There appears to be soft tissue filling the left neural foramen at this level. This likely represents a large disc. The right neural foramen and central canal are patent. L3-4: There is ligamentous thickening and broad-based disc/osteophyte complex. Central canal is patent. There is some lateral recess narrowing as well as moderate bilateral neuroforaminal narrowing. L4-5: There is significant trefoil stenosis to the canal. Facet changes are noted. There appears to be bilateral lateral recess and neuroforaminal stenosis as well. L5-S1: Central canal is patent. Neural foramina are patent. IMPRESSION: Severe multilevel lumbar spondylosis. There appears to be abnormal soft tissue occupying the left neural foramen at the L2-3 level, likely a large disc. There is also moderate central canal, lateral recess and neuroforaminal stenosis at L4-5 level due to degenerative changes. MRI would be useful for further evaluation for better characterization. Dictated on workstation # [id number] Dict: 08/20/171936 Trans: 08/20/171950 PADMINI [id number] Interpreted by: JOSE FRANCISCO SHEPHERD MD Electronically signed by: Elan Imaging: Xray Plain Films/CT/US/NM/MRI: pelvis, hip Comments NAME: TONY IRVING [facility] REC#: [id number] PT STATUS: REG ER : 1940 PHYSICIAN: MARY LIN ADMIT DATE: 08/20/17/ER Signed Date of Exam: 08/20/17 PELVIS WITH LEFT HIP 2-3 VIEWS INDICATION: Left hip pain with left leg radiculopathy. AP pelvis and AP and oblique views of the left hip are obtained. No fracture or acute bony abnormality seen. There is no significant hip joint space narrowing. There is no lytic or blastic lesion. SI joints appear symmetric. IMPRESSION: Negative pelvis and left hip. Dictated by: Dictated on workstation # [id number] Dict: 08/20/171937 Trans: 08/20/171945 Interpreted by: MARIS NELSON MD Electronically signed by: MARIS NELSON MD 08/20/171945 Departure Impression Primary Impression: Lumbar radiculopathy, acute Disposition: 01 HOME, SELF-CARE Condition: Improved Departure-Patient Inst. Decision time for Depature: 20:12 Referrals: BOBBI GROVES MD, CHAD C MD (PCP/Family) Primary Care Physician Patient Instructions: Lumbar Muscle Strain (DC), Radiculopathy (DC) Add. Discharge Instructions: All discharge instructions reviewed with patient and/or family. Voiced understanding. Take medications as directed. You may use Tylenol/acetaminophen 1000 mg every 6 -8 hours as needed for pain as well but do not take that with the prescribed pain medicine as they both have acetaminophen in them. Do not exceed 4000 mg of acetaminophen in 24 hours. You may use icy hot with lidocaine patches or similar item over area of concern per package directions to decrease pain as well. Follow-up with Dr. Troncoso this week for recheck. He should consider orthopedic referral for further evaluation of your back. Dr. Troncoso can assist with this. Return for worse pain, weakness, difficulty with walking or going to the bathroom, numbness between your legs or other concerns as needed. Scripts Prednisone (Prednisone) 20 Mg Tab 40 MG PO DAILY, #12 TAB 0 Refills Prov: KAYLEIGH AVENDANO MD 08/20/17 Hydrocodone Bit/Acetaminophen (Hydrocodone/Acetaminophen 5/325mg Tablet) 1 Tab Tab 1 EACH PO Q4H PRN for PAIN-MODERATE, #12 TAB 0 Refills Prov: KAYLEIGH AVENDANO MD 08/20/17 Copy Copies To 1: ROSA TRONCOSO MD Copies To 2: BOBBI GROVES MD, TIMOTHY D MD Aug 20, 2017 19:46
--- NOTE | 2017-08-20 19:52 | Diagnostic Imaging Report ---
PROCEDURE: CT lumbar spine without contrast. TECHNIQUE: Multiple contiguous axial images were obtained through the lumbar spine without the use of intravenous contrast. Sagittal and coronal reformations were then performed. INDICATION: Left hip pain radiating into the left leg. Curvature and alignment is normal. Vertebral body heights are maintained. No acute fracture is seen. There is multilevel degenerative disc disease with variable disc space narrowing and marginal spurring. There appears to be a transitional lumbosacral vertebral body. There appears to be sacralization of L5. Please see lateral reconstructions for appropriate labeling. L1-2: No central canal or neuroforaminal stenosis is seen. L2-3: There appears to be soft tissue filling the left neural foramen at this level. This likely represents a large disc. The right neural foramen and central canal are patent. L3-4: There is ligamentous thickening and broad-based disc/osteophyte complex. Central canal is patent. There is some lateral recess narrowing as well as moderate bilateral neuroforaminal narrowing. L4-5: There is significant trefoil stenosis to the canal. Facet changes are noted. There appears to be bilateral lateral recess and neuroforaminal stenosis as well. L5-S1: Central canal is patent. Neural foramina are patent. IMPRESSION: Severe multilevel lumbar spondylosis. There appears to be abnormal soft tissue occupying the left neural foramen at the L2-3 level, likely a large disc. There is also moderate central canal, lateral recess and neuroforaminal stenosis at L4-5 level due to degenerative changes. MRI would be useful for further evaluation for better characterization. Dictated by: Dictated on workstation # [id number]
[2017-08-20] MEDS ORDERED: predniSONE 20 MG TAB PO ONE (20:15)
[2017-08-20] MEDS ORDERED: ACHD5005 PO (20:16)
[2017-08-20] MEDS ORDERED: PRD20T PO (20:16)
[2017-08-20 20:20] VITALS: BP 172/86
== END 2017-08-20 20:20 | disposition home or self-care (01) ==
LOC: EDUNIT# 18:37 → ER 18:38
DX: M54.16 Radiculopathy, lumbar region (principal); I48.91 Unspecified atrial fibrillation; I25.10 Atherosclerotic heart disease of native coronary artery without angina pectoris; E78.00 Pure hypercholesterolemia, unspecified; I10 Essential (primary) hypertension; Z90.49 Acquired absence of other specified parts of digestive tract; Z95.5 Presence of coronary angioplasty implant and graft; Z95.810 Presence of automatic (implantable) cardiac defibrillator; Z80.3 Family history of malignant neoplasm of breast
CPT/HCPCS: 72131; 96372

== ENCOUNTER 2017-10-08 10:49 | Outpatient (RCR) | payer MEDICARE ==
[2017-07-23 09:36] LABS: BASOPHILS % (AUTO) 1 % (0-10); EOSINOPHILS # (AUTO) 0.1 10^3/uL (0.0-0.3); EOSINOPHILS % (AUTO) 2 % (0-10); HEMATOCRIT 38 % (40-54); HEMOGLOBIN 12.8 G/DL (13.3-17.7); LYMPHOCYTES % (AUTO) 18 % (12-44); MEAN CORPUSCULAR HEMOGLOBIN 28 PG (25-34); MEAN CORPUSCULAR HGB CONC 34 G/DL (32-36); MEAN CORPUSCULAR VOLUME 83 FL (80-99); MEAN PLATELET VOLUME 8.9 FL (7.4-10.4); MONOCYTES # (AUTO) 0.6 X 10^3 (0.0-1.0); MONOCYTES % (AUTO) 11 % (0-12); NEUTROPHILS # (AUTO) 3.9 X 10^3 (1.8-7.8); NEUTROPHILS % (AUTO) 69 % (42-75); PLATELET COUNT 115 10^3/uL (130-400); RED BLOOD COUNT 4.55 10^6/uL (4.35-5.85); RED CELL DISTRIBUTION WIDTH 14.2 % (10.0-14.5); WHITE BLOOD COUNT 5.7 10^3/uL (4.3-11.0)
[2017-07-23 09:58] LABS: BILIRUBIN,TOTAL 0.8 MG/DL (0.1-1.0); CALCIUM 8.7 MG/DL (8.5-10.1); CREATININE SERUM 1.26 MG/DL (0.60-1.30); POTASSIUM 4.2 MMOL/L (3.6-5.0); TOTAL PROTEIN 6.9 GM/DL (6.4-8.2)
[~2017-10-08 10:49] MED LIST changes: +ACHD5005 PO; +FERRIC CARBOXYMALTOSE (CANCER) 750 MG in NS (IVPB) CANCER CENTER 250 ML IV SCH; +PRD20T PO
[2017-10-08 11:19] LABS: ABSOLUTE RETIC # 97 10e9/L (24-90); BASOPHILS % (AUTO) 1 % (0-10); EOSINOPHILS # (AUTO) 0.1 10^3/uL (0.0-0.3); EOSINOPHILS % (AUTO) 2 % (0-10); HEMATOCRIT 40 % (40-54); HEMOGLOBIN 13.7 G/DL (13.3-17.7); LYMPHOCYTES # (AUTO) 1.3 X 10^3 (1.0-4.0); LYMPHOCYTES % (AUTO) 23 % (12-44); MEAN CORPUSCULAR HEMOGLOBIN 30 PG (25-34); MEAN CORPUSCULAR HGB CONC 35 G/DL (32-36); MEAN CORPUSCULAR VOLUME 85 FL (80-99); MEAN PLATELET VOLUME 8.9 FL (7.4-10.4); MONOCYTES # (AUTO) 0.6 X 10^3 (0.0-1.0); MONOCYTES % (AUTO) 10 % (0-12); NEUTROPHILS # (AUTO) 3.8 X 10^3 (1.8-7.8); NEUTROPHILS % (AUTO) 66 % (42-75); PLATELET COUNT 116 10^3/uL (130-400); RED BLOOD COUNT 4.63 10^6/uL (4.35-5.85); RED CELL DISTRIBUTION WIDTH 16.6 % (10.0-14.5); RETICULOCYTE % 2.09 % (0.50-2.40); WHITE BLOOD COUNT 5.8 10^3/uL (4.3-11.0)
== END 2017-10-21 | disposition home or self-care (01) ==
LOC: ONC 10:49
PROVIDERS: ATTEND Internal Medicine Hematology & Oncology
DX: D50.9 Iron deficiency anemia, unspecified (principal); I25.10 Atherosclerotic heart disease of native coronary artery without angina pectoris; I12.9 Hypertensive chronic kidney disease with stage 1 through stage 4 chronic kidney disease, or unspecified chronic kidney disease; N18.3 Chronic kidney disease, stage 3 (moderate); Z95.5 Presence of coronary angioplasty implant and graft; Z79.899 Other long term (current) drug therapy; Z79.01 Long term (current) use of anticoagulants; Z79.02 Long term (current) use of antithrombotics/antiplatelets; Z95.810 Presence of automatic (implantable) cardiac defibrillator
CPT/HCPCS: 36415; 80053; 82728; 85025; 85045; 96365

== ENCOUNTER 2018-02-25 15:20 | Outpatient (RCR) | payer MEDICARE ==
[2017-12-09 09:41] LABS: ABSOLUTE RETIC # 96 10e9/L (24-90); BASOPHILS % (AUTO) 1 % (0-10); EOSINOPHILS # (AUTO) 0.1 10^3/uL (0.0-0.3); EOSINOPHILS % (AUTO) 2 % (0-10); HEMATOCRIT 42 % (40-54); LYMPHOCYTES # (AUTO) 1.4 X 10^3 (1.0-4.0); LYMPHOCYTES % (AUTO) 21 % (12-44); MEAN CORPUSCULAR HEMOGLOBIN 28 PG (25-34); MEAN CORPUSCULAR HGB CONC 33 G/DL (32-36); MEAN CORPUSCULAR VOLUME 85 FL (80-99); MEAN PLATELET VOLUME 8.9 FL (7.4-10.4); MONOCYTES # (AUTO) 0.7 X 10^3 (0.0-1.0); MONOCYTES % (AUTO) 11 % (0-12); NEUTROPHILS # (AUTO) 4.4 X 10^3 (1.8-7.8); NEUTROPHILS % (AUTO) 66 % (42-75); PLATELET COUNT 120 10^3/uL (130-400); RED CELL DISTRIBUTION WIDTH 13.5 % (10.0-14.5); RETICULOCYTE % 1.92 % (0.50-2.40); WHITE BLOOD COUNT 6.6 10^3/uL (4.3-11.0)
[2017-12-09 09:58] LABS: ALBUMIN 4.2 GM/DL (3.2-4.5); BILIRUBIN,TOTAL 0.8 MG/DL (0.1-1.0); CALCIUM 9.1 MG/DL (8.5-10.1); CREATININE SERUM 1.38 MG/DL (0.60-1.30); TOTAL PROTEIN 7.1 GM/DL (6.4-8.2)
[2018-01-16 10:06] LABS: BASOPHILS # (AUTO) 0.1 10^3/uL (0.0-0.1); BASOPHILS % (AUTO) 1 % (0-10); EOSINOPHILS # (AUTO) 0.1 10^3/uL (0.0-0.3); EOSINOPHILS % (AUTO) 1 % (0-10); HEMATOCRIT 41 % (40-54); HEMOGLOBIN 13.9 G/DL (13.3-17.7); LYMPHOCYTES # (AUTO) 1.5 X 10^3 (1.0-4.0); LYMPHOCYTES % (AUTO) 22 % (12-44); MEAN CORPUSCULAR HEMOGLOBIN 28 PG (25-34); MEAN CORPUSCULAR HGB CONC 34 G/DL (32-36); MEAN CORPUSCULAR VOLUME 82 FL (80-99); MEAN PLATELET VOLUME 9.1 FL (7.4-10.4); MONOCYTES # (AUTO) 0.8 X 10^3 (0.0-1.0); MONOCYTES % (AUTO) 12 % (0-12); NEUTROPHILS # (AUTO) 4.5 X 10^3 (1.8-7.8); NEUTROPHILS % (AUTO) 65 % (42-75); PLATELET COUNT 114 10^3/uL (130-400); RED CELL DISTRIBUTION WIDTH 13.6 % (10.0-14.5); WHITE BLOOD COUNT 6.9 10^3/uL (4.3-11.0)
[2018-02-13 09:40] LABS: ABSOLUTE RETIC # 83 10e9/L (24-90); BASOPHILS # (AUTO) 0.1 10^3/uL (0.0-0.1); BASOPHILS % (AUTO) 1 % (0-10); EOSINOPHILS # (AUTO) 0.1 10^3/uL (0.0-0.3); EOSINOPHILS % (AUTO) 1 % (0-10); HEMATOCRIT 43 % (40-54); HEMOGLOBIN 14.2 G/DL (13.3-17.7); LYMPHOCYTES # (AUTO) 1.1 X 10^3 (1.0-4.0); LYMPHOCYTES % (AUTO) 15 % (12-44); MEAN CORPUSCULAR HEMOGLOBIN 27 PG (25-34); MEAN CORPUSCULAR HGB CONC 33 G/DL (32-36); MEAN CORPUSCULAR VOLUME 80 FL (80-99); MEAN PLATELET VOLUME 9.3 FL (7.4-10.4); MONOCYTES # (AUTO) 0.6 X 10^3 (0.0-1.0); MONOCYTES % (AUTO) 9 % (0-12); NEUTROPHILS # (AUTO) 5.2 X 10^3 (1.8-7.8); NEUTROPHILS % (AUTO) 74 % (42-75); PLATELET COUNT 120 10^3/uL (130-400); RED CELL DISTRIBUTION WIDTH 13.7 % (10.0-14.5); RETICULOCYTE % 1.55 % (0.50-2.40)
[2018-02-13 09:57] LABS: ALBUMIN 4.3 GM/DL (3.2-4.5); BILIRUBIN,TOTAL 1.1 MG/DL (0.1-1.0); CREATININE SERUM 1.26 MG/DL (0.60-1.30); POTASSIUM 4.1 MMOL/L (3.6-5.0); TOTAL PROTEIN 7.4 GM/DL (6.4-8.2)
== END 2018-03-09 | disposition home or self-care (01) ==
LOC: ONC 15:20
PROVIDERS: ATTEND Internal Medicine Hematology & Oncology
DX: D50.9 Iron deficiency anemia, unspecified (principal); I25.10 Atherosclerotic heart disease of native coronary artery without angina pectoris; I12.9 Hypertensive chronic kidney disease with stage 1 through stage 4 chronic kidney disease, or unspecified chronic kidney disease; N18.3 Chronic kidney disease, stage 3 (moderate); Z95.5 Presence of coronary angioplasty implant and graft; Z79.899 Other long term (current) drug therapy; Z79.01 Long term (current) use of anticoagulants; Z79.02 Long term (current) use of antithrombotics/antiplatelets; Z95.810 Presence of automatic (implantable) cardiac defibrillator
CPT/HCPCS: 36415; 80053; 82728; 83540; 85025; 85045; 96365; 99213

== ENCOUNTER 2018-05-14 09:55 | Outpatient (RCR) | payer MEDICARE ==
[2018-05-07 09:33] LABS: BASOPHILS % (AUTO) 0 % (0-10); EOSINOPHILS # (AUTO) 0.1 10^3/uL (0.0-0.3); EOSINOPHILS % (AUTO) 1 % (0-10); HEMATOCRIT 41 % (40-54); HEMOGLOBIN 13.8 G/DL (13.3-17.7); LYMPHOCYTES % (AUTO) 18 % (12-44); MEAN CORPUSCULAR HEMOGLOBIN 28 PG (25-34); MEAN CORPUSCULAR HGB CONC 34 G/DL (32-36); MEAN CORPUSCULAR VOLUME 83 FL (80-99); MEAN PLATELET VOLUME 8.8 FL (7.4-10.4); MONOCYTES # (AUTO) 0.7 X 10^3 (0.0-1.0); MONOCYTES % (AUTO) 12 % (0-12); NEUTROPHILS % (AUTO) 69 % (42-75); PLATELET COUNT 97 10^3/uL (130-400); RED CELL DISTRIBUTION WIDTH 15.6 % (10.0-14.5); WHITE BLOOD COUNT 5.8 10^3/uL (4.3-11.0)
[2018-05-07 09:50] LABS: ALBUMIN 4.1 GM/DL (3.2-4.5); BILIRUBIN,TOTAL 0.8 MG/DL (0.1-1.0); CALCIUM 8.5 MG/DL (8.5-10.1); CREATININE SERUM 1.31 MG/DL (0.60-1.30); POTASSIUM 4.2 MMOL/L (3.6-5.0); TOTAL PROTEIN 6.4 GM/DL (6.4-8.2)
[~2018-05-14 09:55] MED LIST changes: -FERRIC CARBOXYMALTOSE (CANCER) 750 MG in NS (IVPB) CANCER CENTER 250 ML IV SCH
== END 2018-08-05 | disposition home or self-care (01) ==
LOC: ONC 09:55
PROVIDERS: ATTEND Internal Medicine Hematology & Oncology
DX: D50.9 Iron deficiency anemia, unspecified (principal); I25.10 Atherosclerotic heart disease of native coronary artery without angina pectoris; I12.9 Hypertensive chronic kidney disease with stage 1 through stage 4 chronic kidney disease, or unspecified chronic kidney disease; N18.3 Chronic kidney disease, stage 3 (moderate); Z95.5 Presence of coronary angioplasty implant and graft; Z79.899 Other long term (current) drug therapy; Z79.01 Long term (current) use of anticoagulants; Z79.02 Long term (current) use of antithrombotics/antiplatelets; Z95.810 Presence of automatic (implantable) cardiac defibrillator
CPT/HCPCS: 36415; 80053; 82728; 85025; 99213

== ENCOUNTER 2018-11-17 08:20 | Outpatient (RCR) | payer MEDICARE ==
[2018-08-20 08:38] LABS: BASOPHILS % (AUTO) 0 % (0-10); EOSINOPHILS # (AUTO) 0.1 10^3/uL (0.0-0.3); EOSINOPHILS % (AUTO) 1 % (0-10); HEMATOCRIT 41 % (40-54); HEMOGLOBIN 13.8 G/DL (13.3-17.7); LYMPHOCYTES # (AUTO) 1.2 X 10^3 (1.0-4.0); LYMPHOCYTES % (AUTO) 16 % (12-44); MEAN CORPUSCULAR HEMOGLOBIN 28 PG (25-34); MEAN CORPUSCULAR HGB CONC 34 G/DL (32-36); MEAN CORPUSCULAR VOLUME 82 FL (80-99); MEAN PLATELET VOLUME 8.7 FL (7.4-10.4); MONOCYTES # (AUTO) 0.7 X 10^3 (0.0-1.0); MONOCYTES % (AUTO) 9 % (0-12); NEUTROPHILS # (AUTO) 5.2 X 10^3 (1.8-7.8); NEUTROPHILS % (AUTO) 73 % (42-75); PLATELET COUNT 122 10^3/uL (130-400); RED CELL DISTRIBUTION WIDTH 14.5 % (10.0-14.5); WHITE BLOOD COUNT 7.2 10^3/uL (4.3-11.0)
[2018-08-20 08:56] LABS: ALBUMIN 4.1 GM/DL (3.2-4.5); BILIRUBIN,TOTAL 0.9 MG/DL (0.1-1.0); CALCIUM 8.8 MG/DL (8.5-10.1); CREATININE SERUM 1.41 MG/DL (0.60-1.30); POTASSIUM 4.1 MMOL/L (3.6-5.0); TOTAL PROTEIN 6.8 GM/DL (6.4-8.2)
[2018-11-17 08:42] LABS: BASOPHILS % (AUTO) 1 % (0-10); EOSINOPHILS # (AUTO) 0.1 10^3/uL (0.0-0.3); EOSINOPHILS % (AUTO) 1 % (0-10); HEMATOCRIT 44 % (40-54); HEMOGLOBIN 14.7 G/DL (13.3-17.7); LYMPHOCYTES # (AUTO) 1.4 X 10^3 (1.0-4.0); LYMPHOCYTES % (AUTO) 18 % (12-44); MEAN CORPUSCULAR HEMOGLOBIN 27 PG (25-34); MEAN CORPUSCULAR HGB CONC 34 G/DL (32-36); MEAN CORPUSCULAR VOLUME 81 FL (80-99); MEAN PLATELET VOLUME 9.2 FL (7.4-10.4); MONOCYTES # (AUTO) 0.7 X 10^3 (0.0-1.0); MONOCYTES % (AUTO) 8 % (0-12); NEUTROPHILS # (AUTO) 5.7 X 10^3 (1.8-7.8); NEUTROPHILS % (AUTO) 72 % (42-75); PLATELET COUNT 112 10^3/uL (130-400); RED CELL DISTRIBUTION WIDTH 14.1 % (10.0-14.5); WHITE BLOOD COUNT 7.9 10^3/uL (4.3-11.0)
[2018-11-17 09:01] LABS: ALBUMIN 4.3 GM/DL (3.2-4.5); BILIRUBIN,TOTAL 1.1 MG/DL (0.1-1.0); CALCIUM 8.7 MG/DL (8.5-10.1); CREATININE SERUM 1.25 MG/DL (0.60-1.30); POTASSIUM 4.1 MMOL/L (3.6-5.0); TOTAL PROTEIN 7.4 GM/DL (6.4-8.2)
== END 2018-11-18 | disposition home or self-care (01) ==
LOC: ONC 08:20
PROVIDERS: ATTEND Internal Medicine Hematology & Oncology
DX: D50.9 Iron deficiency anemia, unspecified (principal); I25.10 Atherosclerotic heart disease of native coronary artery without angina pectoris; I12.9 Hypertensive chronic kidney disease with stage 1 through stage 4 chronic kidney disease, or unspecified chronic kidney disease; N18.3 Chronic kidney disease, stage 3 (moderate); Z95.5 Presence of coronary angioplasty implant and graft; Z79.899 Other long term (current) drug therapy; Z79.01 Long term (current) use of anticoagulants; Z79.02 Long term (current) use of antithrombotics/antiplatelets; Z95.810 Presence of automatic (implantable) cardiac defibrillator
CPT/HCPCS: 36415; 80053; 82728; 85025; 99213

== ENCOUNTER 2018-11-27 08:22 | Outpatient (RCR) | payer MEDICARE ==
[~2018-11-27 08:22] MED LIST changes: +FERRIC CARBOXYMALTOSE (CANCER) 750 MG in NS (IVPB) CANCER CENTER 250 ML IV SCH
== END 2019-02-17 | disposition home or self-care (01) ==
LOC: ONC 08:22
PROVIDERS: ATTEND Internal Medicine Hematology & Oncology
DX: D50.9 Iron deficiency anemia, unspecified (principal); I25.10 Atherosclerotic heart disease of native coronary artery without angina pectoris; N18.3 Chronic kidney disease, stage 3 (moderate); D69.6 Thrombocytopenia, unspecified; Z79.899 Other long term (current) drug therapy
CPT/HCPCS: 96365; 99213

== ENCOUNTER 2019-01-11 08:09 | Emergency (ER) | payer MEDICARE ==
[~2019-01-11] VITALS: Ht 167.7 cm; Wt 89.3 kg
[~2019-01-11 08:09] MED LIST changes: -FERRIC CARBOXYMALTOSE (CANCER) 750 MG in NS (IVPB) CANCER CENTER 250 ML IV SCH
[2019-01-11 09:31] LABS: BASOPHILS % (AUTO) 0 % (0-10); EOSINOPHILS # (AUTO) 0.1 10^3/uL (0.0-0.3); EOSINOPHILS % (AUTO) 1 % (0-10); HEMATOCRIT 42 % (40-54); HEMOGLOBIN 14.6 G/DL (13.3-17.7); LYMPHOCYTES # (AUTO) 1.2 X 10^3 (1.0-4.0); LYMPHOCYTES % (AUTO) 16 % (12-44); MEAN CORPUSCULAR HEMOGLOBIN 29 PG (25-34); MEAN CORPUSCULAR HGB CONC 34 G/DL (32-36); MEAN CORPUSCULAR VOLUME 83 FL (80-99); MEAN PLATELET VOLUME 9.4 FL (7.4-10.4); MONOCYTES # (AUTO) 0.7 X 10^3 (0.0-1.0); MONOCYTES % (AUTO) 10 % (0-12); NEUTROPHILS # (AUTO) 5.3 X 10^3 (1.8-7.8); NEUTROPHILS % (AUTO) 73 % (42-75); PLATELET COUNT 96 10^3/uL (130-400); RED CELL DISTRIBUTION WIDTH 16.1 % (10.0-14.5); WHITE BLOOD COUNT 7.4 10^3/uL (4.3-11.0)
[2019-01-11 09:36] LABS: INR 1.1 (0.8-1.4); PROTHROMBIN TIME PATIENT 14.6 SEC (12.2-14.7)
[2019-01-11 09:45] LABS: ALANINE AMINOTRANSFERASE 26 U/L (0-55); ALBUMIN 4.3 GM/DL (3.2-4.5); ALKALINE PHOSPHATASE 102 U/L (40-136); BILIRUBIN,TOTAL 1.4 MG/DL (0.1-1.0); BUN/CREATININE RATIO 17; CALCIUM 8.6 MG/DL (8.5-10.1); CARBON DIOXIDE 21 MMOL/L (21-32); CHLORIDE 109 MMOL/L (98-107); CREATININE SERUM 1.32 MG/DL (0.60-1.30); GFR ESTIMATED 53; GLUCOSE 97 MG/DL (70-105); POTASSIUM 4.1 MMOL/L (3.6-5.0); SODIUM 140 MMOL/L (135-145); TOTAL PROTEIN 6.8 GM/DL (6.4-8.2)
--- NOTE | 2019-01-11 10:12 | Diagnostic Imaging Report ---
Indication: Left leg pain and swelling, dyspnea. Comparison: 03/31/2016. Discussion: Two views of the chest were obtained. Left-sided pacemaker is stable. Stable normal heart size. No focal consolidation, pleural fluid, or pneumothorax. No osseous abnormality. Impression: 1. Negative chest. Dictated by: Dictated on workstation # [id number]
--- NOTE | 2019-01-11 10:13 | Diagnostic Imaging Report ---
Indication: Left foot pain and swelling. Comparison: None. Discussion: Three views of the left foot were obtained. 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 Atherosclerotic calcifications are noted diffusely. Calcaneal enthesophytes are present. No fracture or dislocation. Alignment is anatomic. No foreign body identified. Impression: 1. Chronic changes as discussed. No acute abnormality. Dictated by: Dictated on workstation # [id number]
--- NOTE | 2019-01-11 10:14 | Diagnostic Imaging Report ---
Indication: Left lower leg pain and swelling. Comparison: None. Discussion: Four views of left tibia and fibula were obtained. Joint spaces are maintained. No fracture or dislocation. Alignment is anatomic. Soft tissues are unremarkable. No foreign body. Vascular calcifications are present. Impression: 1. Negative left tibia and fibula. Dictated by: Dictated on workstation # [id number]
--- NOTE | 2019-01-11 10:37 | ED Lower Extremity ---
General Chief Complaint: Lower Extremity Stated Complaint: L LEG SWELLING Nursing Triage Note: Ambulatory to rm 5. Pt c/o L lower leg swelling and bruising. Pt denies injury and is not sure what happened. 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 Pt reports noticing a red claude on Saturday and leg began swelling and bruising on Saturday. Pt has visible ecchymosis on calf and on inner aspect of foot. Normal/strong pulse noted in foot. Pt denies pain. Nursing Sepsis Screen: No Definite Risk Source: patient, spouse History of Present Illness Date Seen by Provider: Jan 11, 2019 Time Seen by Provider: 08:50 Initial Comments PT ARRIVES VIA POV FROM HOME C/O SWELLING, BRUISING AND SORENESS TO LEFT LOWER LEG STATES IT STARTED A "RED SPOT AND THEN A KNOT" TO LEFT MID GIRON AREA. STATES THE KNOT HAS GOTTEN BIGGER, AND THE BRUISING AND SWELLING HAS GOTTEN WORSE AND MOVED DOWN TO HIS LEFT ANKLE AND NOW TO HIS FOOT. SYMPTOMS BEGAN 4-5 DAYS AGO STATES HE WAS ON HIS FEET ALL DAY THE LAST 2 DAYS, AND THE SWELLING WAS WORSE YESTERDAY AND LAST PM. STATES HE IS NOT SURE IF HE INJURED IT OR NOT, BUT MIGHT HAVE HIT HIS LEG ON THE TAILGATE OF HIS TRUCK HE WAS JUMPING IN THE BACK OF IT NO PARESTHESIAS OR MOTOR DEFICITS NO CHEST PAIN NO SHORTNESS OF BREATH, BUT HAD WHEEZING/"GURGLES" IN HIS CHEST LAST PM NO COUGH NO FEVER NO SWEATS NO PALPITATIONS PT IS ON PLAVIX AND ASPIRIN. DENIES ANY MISSED DOSES OF MEDICATIONS PCP: DR. ROSA TRONCOSO PLATEN GRINDER: DR. SOLIS [facility] Allergies and Home Medications Allergies Coded Allergies: No Known Drug Allergies (Unverified , 01/07/12) Home Medications Alprazolam 0.25 Mg Tablet, 1-2 TAB PO Q6H PRN for ANXIETY Prescribed by: LEANN HWANG on 03/31/162141 Hydrocodone Bit/Acetaminophen 1 Tab Tab, 1 EACH PO Q4H PRN for PAIN-MODERATE Prescribed by: KAYLEIGH AVENDANO on 08/20/172015 Prednisone 20 Mg Tab, 40 MG PO DAILY Prescribed by: KAYLEIGH AVENDANO on 08/20/172015 Ranolazine 1,000 Mg Tab.sr.12h, 500 MG PO BID, (Reported) Rivaroxaban 20 Mg Tablet, 20 MG PO DAILY, (Reported) Patient Home Medication List Home Medication List Reviewed: Yes Review of Systems Constitutional: no symptoms reported; No chills, No diaphoresis, No dizziness, No fever EENTM: no symptoms reported Respiratory: no symptoms reported; No cough, No dyspnea on exertion, No short of breath, No wheezing Cardiovascular: No chest pain; edema; No palpitations, No syncope Gastrointestinal: no symptoms reported Genitourinary: no symptoms reported Musculoskeletal: see HPI Skin: see HPI Psychiatric/Neurological: No Symptoms Reported; Denies Numbness, Denies Paresthesia, Denies Tingling, Denies Weakness Past Ecnykzi-Bdpkqi-Yzofqh Hx Past Med/Social Hx: Reviewed and Corrections made Patient Social History Alcohol Use: Denies Use Recreational Drug Use: No Smoking Status: Never a Smoker 2nd Hand Smoke Exposure: No Recent Foreign Travel: No Contact w/Someone Who Travel: No Recent Infectious Disease Expo: No Recent Hopitalizations: Yes Immunizations Up To Date Date of Influenza Vaccine: Dec 13, 2015 Seasonal Allergies Seasonal Allergies: Yes Past Medical History Surgeries: Yes (CARDIAC CATHS WITH STENTS X 3; PACEMAKER + DEFIBRILLATOR , AND EXTRA LEAD PLACED IN 2017; BILATERAL CATARACT SURGERY) Appendectomy, Cardiac, Coronary Stent, Defibrillator, Eye Surgery, Pacemaker Respiratory: Yes Pneumonia Cardiac: Yes (PACEMAKER/DEFIBRILLATOR; HEART BLOCK; CARDIAC CATHS WITH STENTS X 3) Atrial Fibrillation, Coronary Artery Disease, High Cholesterol, Hypertension, Irregular Heartbeat Neurological: No Genitourinary: Yes (CHRONIC RENAL INSUFFICIENCY) Renal Failure Gastrointestinal: No Musculoskeletal: No Endocrine: No HEENT: Yes (BILATERAL CATARACT SURGERY) Cataract Cancer: No Psychosocial: No Integumentary: No Blood Disorders: No Family Medical History FH: breast cancer 19 MOTHER FH: lung cancer 19 FATHER No Pertinent Family Hx Physical Exam Vital Signs Vital Signs - First Documented 01/11/19 08:55 Temp 36.5 Pulse 67 Resp 15 B/P (MAP) 150/91 (110) Pulse Ox 94 O2 Delivery Room Air Capillary Refill : Less Than 3 Seconds Height, Weight, BMI Height: 5'8" Weight: 180lbs. 0.0oz. [id number]; 31.00 BMI Method:Stated General Appearance: WD/WN, no apparent distress HEENT: other (NASAL CONGESTION, CLEAR POST NASAL DRAINAGE. NO SINUS TENDERNESS) Neck: non-tender, full range of motion, supple, normal inspection Cardiovascular: normal peripheral pulses, regular rate, rhythm, no murmur Respiratory: normal breath sounds, no respiratory distress, no accessory muscle use Gastrointestinal: non tender, soft Back: no CVA tenderness Hips: bilateral hip non-tender, bilateral hip normal inspection, bilateral hip normal range of motion, bilateral hip no evidence of injury Legs: right leg non-tender, right leg normal inspection, right leg normal range of motion, right leg no evidence of injury; left leg other (LEFT LOWER LEG/ MID GIRON AREA WITH OLDER APPEARING ABRASION, WITH SWELLING--APPEARANCE OF HEMATOMA AROUND IT, WITH EXTENSIVE OLD BRUISING FROM THIS AREA DOWN TO MID FOOT, WITH MODERATE EDEMA. NO CALF TENDERNESS. MOTOR/SENSORY/VASCULAR INTACT. 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, no motor/sensory deficits, alert, normal mood/affect, oriented x 3 Skin: normal color, warm/dry, ecchymosis Progress/Results/Core Measures Results/Orders Lab Results Laboratory Tests Test 01/11/19 09:04 Range/Units White Blood Count 7.4 4.3-11.0 10^3/uL Red Blood Count 5.10 4.35-5.85 10^6/uL Hemoglobin 14.6 13.3-17.7 G/DL Hematocrit 42 40-54 % Mean Corpuscular Volume 83 80-99 FL Mean Corpuscular Hemoglobin 29 25-34 PG Mean Corpuscular Hemoglobin Concent 34 32-36 G/DL Red Cell Distribution Width 16.1 H 10.0-14.5 % Platelet Count 96 L 130-400 10^3/uL Mean Platelet Volume 9.4 7.4-10.4 FL Neutrophils (%) (Auto) 73 42-75 % Lymphocytes (%) (Auto) 16 12-44 % Monocytes (%) (Auto) 10 0-12 % Eosinophils (%) (Auto) 1 0-10 % Basophils (%) (Auto) 0 0-10 % Neutrophils # (Auto) 5.3 1.8-7.8 X 10^3 Lymphocytes # (Auto) 1.2 1.0-4.0 X 10^3 Monocytes # (Auto) 0.7 0.0-1.0 X 10^3 Eosinophils # (Auto) 0.1 0.0-0.3 10^3/uL Basophils # (Auto) 0.0 0.0-0.1 10^3/uL Prothrombin Time 14.6 12.2-14.7 SEC INR Comment 1.1 0.8-1.4 Activated Partial Thromboplast Time 35 24-35 SEC Sodium Level 140 135-145 MMOL/L Potassium Level 4.1 3.6-5.0 MMOL/L Chloride Level 109 H 98-107 MMOL/L Carbon Dioxide Level 21 21-32 MMOL/L Anion Gap 10 5-14 MMOL/L Blood Urea Nitrogen 23 H 7-18 MG/DL Creatinine 1.32 H 0.60-1.30 MG/DL Estimat Glomerular Filtration Rate 53 BUN/Creatinine Ratio 17 Glucose Level 97 70-105 MG/DL Calcium Level 8.6 8.5-10.1 MG/DL Corrected Calcium 8.4 L 8.5-10.1 MG/DL Magnesium Level 2.0 1.6-2.4 MG/DL Total Bilirubin 1.4 H 0.1-1.0 MG/DL Aspartate Amino Transf (AST/SGOT) 23 5-34 U/L Alanine Aminotransferase (ALT/SGPT) 26 0-55 U/L Alkaline Phosphatase 102 40-136 U/L Troponin I < 0.028 <0.028 NG/ML B-Type Natriuretic Peptide 235.9 H <100.0 PG/ML Total Protein 6.8 6.4-8.2 GM/DL Albumin 4.3 3.2-4.5 GM/DL Micro Results Microbiology 01/11/19 Influenza Types A,B Antigen ([facility]) - Final, Complete My Orders Orders - DAVID LEGGETT DO Ed Iv/Invasive Line Start (01/11/19 09:22) Ekg Tracing (01/11/19 09:22) Monitor-Rhythm Ecg Trace Only (01/11/19 09:22) Chest Pa/Lat (2 View) (01/11/19 09:22) Tibia/Fibula, Left, 2 Views (01/11/19 09:22) Foot, Left, 3 Views (01/11/19 09:22) BNP (01/11/19 09:22) Cbc With Automated Diff (01/11/19 09:22) Comprehensive Metabolic Panel (01/11/19 09:22) Magnesium (01/11/19 09:22) Protime With Inr (01/11/19 09:22) Partial Thromboplastin Time (01/11/19 09:22) Influenza A And B Antigens (01/11/19 09:22) Troponin I (01/11/19 09:22) Raman Bandage (01/11/19 10:40) Vital Signs/I&O 01/11/19 01/11/19 08:55 10:59 Temp 36.5 36.5 Pulse 67 65 Resp 15 15 B/P (MAP) 150/91 (110) 152/91 (110) Pulse Ox 94 96 O2 Delivery Room Air Room Air Blood Pressure Mean: 110 POS Progress Progress Note : Progress Note NO ULTRASOUND AVAILABLE HERE TODAY AND PT IS OTHERWISE ASYMPTOMATIC, AND IS ALREADY ON ASPIRIN AND PLAVIX, WILL ORDER OUTPATIENT ULTRASOUND FOR TOMORROW, AND PT IS TO FOLLOW UP WITH DR. Mehran TRONCOSO THIS WEEK FOR FURTHER CARE AND TEST RESULTS Initial ECG Impression Date: Jan 11, 2019 Initial ECG Impression Time: 09:34 Initial ECG Rate: 65 Comment 100 % A-V PACED, IVCD, NON-SPECIFIC ST DEPRESSION INFERIORLY Diagnostic Imaging Comments XRAYS PER RADIOLOGIST REPORTS AT 1035 CXR--NO ACUTE PROCESS XRAYS LEFT TIB-FIB--NO ACUTE PROCESS XRAYS LEFT FOOT--NO ACUTE PROCESS Reviewed: Reviewed by Me Departure Impression Primary Impression: Contusion of left lower leg Additional Impressions: BRUISING AND SWELLING OF LEFT LOWER LEG ASPIRIN AND PLAVIX THERAPY Chronic renal insufficiency Disposition: 01 HOME, SELF-CARE Condition: Stable Departure-Patient Inst. Referrals: ROAS TRONCOSO MD (PCP/Family) Primary Care Physician Patient Instructions: Contusion (DC), Dependent Edema (DC) Add. Discharge Instructions: ELEVATE LEG MUCH POSSIBLE RAMAN WRAP FOR PAIN AND SWELLING CONTINUE YOUR MEDICATIONS PRESCRIBED CALL IN AM TO SCHEDULE OUTPATIENT ULTRASOUND OF LEFT LEG FOLLOW UP WITH DR. Mehran TRONCOSO IN 2-3 DAYS FOR FURTHER CARE All discharge instructions reviewed with patient and/or family. Voiced understanding. DAVID LEGGETT DO Jan 11, 2019 10:37 POS
[2019-01-11 10:59] VITALS: BP 152/91
--- OUTSIDE RECORDS SUMMARY | 2019-02-05 06:20 | XMS REPORT | Referral Summary ---
Author Author [facility] Organization [facility] Address Unknown Phone Unavailable Encounter [facility] [id number] Date(s): 08/11/14 - 08/11/14 [facility] [address] [place], [place] [address] Discharge Disposition: 01-Home or Self Care Attending Physician: Fausto He MD Admitting Physician: Fausto He MD Vital Signs No data available for this section Problem List No data available for this section Allergies, Adverse Reactions, Alerts No data available for this section Medications No data available for this section Results No data available for this section Immunizations No data available for this section Procedures No data available for this section Social History No data available for this section Assessment and Plan No data available for this section
--- OUTSIDE RECORDS SUMMARY | 2019-02-05 06:21 | XMS REPORT | Continuity of Care Document ---
Author Organization Unknown Address Unknown Phone Unavailable Allergies Active Description Code Type Severity Reaction Onset Reported/Identified Relationship to Patient Clinical Status Yes No Known Drug Allergies [id number] Drug Allergy Unknown N/A 01/07/2012 Medications There is no data. Problems Date Dx Coded Attending Type Code Diagnosis Diagnosed By 01/07/2012 Ot 401.9 HYPE RTENSION NOS 01/07/2012 Ot 426.0 ATRI OVENT BLOCK COMPLETE 01/07/2012 Ot 427.89 CAR DIAC DYSRHYTHMIAS NEC 01/07/2012 Ot 780.2 SYNC OPE AND COLLAPSE 01/04/2014 Ot 786.2 01/04/2014 Ot 518.89 01/04/2014 Ot 786.09 01/04/2014 Ot 786.59 01/04/2014 Ot 327.23 01/04/2014 Ot 401.9 01/04/2014 Ot 414.01 01/04/2014 BRETT ALEXANDRA Ot 786.05 01/04/2014 BRETT ALEXANDRA L Ot 786.50 02/01/2014 DILLON FARMER, MARIS García Ot 786.2 02/25/2014 CALEB RODRIGUEZ MD Ot 780 .2 SYNCOPE AND COLLAPSE 02/25/2014 CALEB RODRIGUEZ MD Ot 786.05 SHORTNESS OF BREATH 02/25/2014 Ot 786.2 02/25/2014 Ot 518.89 02/25/2014 Ot 786.09 02/25/2014 Ot 786.59 02/25/2014 Ot 327.23 02/25/2014 Ot 401.9 02/25/2014 Ot 414.01 02/25/2014 BRETT ALEXANDRA L Ot 786.05 02/25/2014 BRETT ALEXANDRA L Ot 786.50 02/25/2014 DILLON FARMER, MARIS García Ot 786.2 02/25/2014 RAUDEL FARMER, SHEYLA Lambert Ot 4 86 03/13/2014 SHEYLA STARKS MD Ot 4 86 03/22/2014 RAUDEL FARMER, SHEYLA Lambert Ot 4 86 03/29/2014 DEBRA FARMER, DAPHNE Sidhu Ot 280.9 03/29/2014 DEBRA FARMER, DAPHNE Sidhu Ot 401.9 03/29/2014 DEBRA FARMER, DAPHNE Sidhu Ot 414.00 03/29/2014 DEBRA FARMER, DAPHNE Sidhu Ot 780.57 03/29/2014 DEBRA FARMER, DAPHNE Sidhu Ot V45.01 03/29/2014 DEBRA FARMER, DAPHNE Sidhu Ot V45.82 03/29/2014 DEBRA FARMER, DAPHNE Sidhu Ot V58.61 03/29/2014 DEBRA FARMER, DAPHNE Sidhu Ot V58.69 06/15/2014 DEBRA FARMER, DAPHNE Sidhu Ot 280.9 06/15/2014 DEBRA FARMER, DAPHNE Sidhu Ot 401.9 06/15/2014 DEBRA FARMER, DAPHNE Sidhu Ot 414.00 06/15/2014 DEBRA FARMER, DAPHNE Sidhu Ot 780.57 06/15/2014 DEBRA FARMER, DAPHNE Sidhu Ot V45.01 06/15/2014 DEBRA FARMER, DAPHNE Sidhu Ot V45.82 06/15/2014 DEBRA FARMER, DAPHNE Sidhu Ot V58.61 06/15/2014 DEBRA FARMER, DAPHNE Sidhu Ot V58.69 06/23/2014 DEBRA FARMER, DAPHNE Sidhu Ot 280.9 IRON DEFIC ANEMIA NOS 06/23/2014 DEBRA FARMER, DAPHNE Sidhu Ot 401.9 HYPERTENSION NOS 06/23/2014 DEBRA FARMER, DAPHNE Sidhu Ot 414.00 CORON ATHEROSCLER NOS TYPE VESSEL, NATIV 06/23/2014 DEBRA FARMER, DAPHNE Sidhu Ot 780.57 UNSPECIFIED SLEEP APNEA 06/23/2014 DEBRA FARMER, DAPHNE Sidhu Ot V45.01 CARDIAC PACEMAKER IN SITU 06/23/2014 DEBRA FARMER, DAPHNE Sidhu Ot V45.82 PERCUTANEOUS TRANSLUM CORON ANGIOPLASTY 06/23/2014 DEBRA FARMER, DAPHNE Sidhu Ot V58.61 ANTICOAGULANTS,LT,CURRENT USE 06/23/2014 DEBRA FARMER, DAPHNE Sidhu Ot V58.69 OTH MED,LT,CURRENT USE 09/08/2014 DEBRA FARMER, DAPHNE Sidhu Ot 280.9 09/08/2014 DEBRA FARMER, DAPHNE Sidhu Ot 401.9 09/08/2014 DEBRA FARMER, DAPHNE Sidhu Ot 414.00 09/08/2014 DEBRA FARMER, DAPHNE Sidhu Ot 780.57 09/08/2014 DEBRA FARMER, DAPHNE Sidhu Ot V45.01 09/08/2014 DEBRA FARMER, DAPHNE Sidhu Ot V45.82 09/08/2014 DEBRA FARMER, DAPHNE Sidhu Ot V58.61 09/08/2014 DEBRA FARMER, DAPHNE K Ot V58.69 09/08/2014 DEBRA FARMER, DAPHNE K Ot 280.9 09/08/2014 DEBRA FARMER, DAPHNE K Ot 401.9 09/08/2014 DEBRA FARMER, DAPHNE K Ot 414.00 09/08/2014 DEBRA FARMER, DAPHNE K Ot 780.57 09/08/2014 DEBRA FARMER, DAPHNE K Ot V45.01 09/08/2014 DEBRA FARMER, DAPHNE K Ot V45.82 09/08/2014 DEBRA FARMER, DAPHNE K Ot V58.61 09/08/2014 DEBRA FARMER, DAPHNE K Ot V58.69 09/09/2014 DEBRA FARMER, DAPHNE K Ot 280.9 09/09/2014 DEBRA FARMER, DAPHNE K Ot 401.9 09/09/2014 DEBRA FARMER, DAPHNE K Ot 414.00 09/09/2014 DEBRA FARMER, DAPHNE K Ot 780.57 09/09/2014 DEBRA FARMER, DAPHNE K Ot V45.01 09/09/2014 DEBRA FARMER, DAPHNE K Ot V45.82 09/09/2014 DEBRA FARMER, DAPHNE K Ot V58.61 09/09/2014 DEBRA FARMER, DAPHNE K Ot V58.69 09/10/2014 DEBRA FARMER, DAPHNE K Ot 280.9 09/10/2014 DEBRA FARMER, DAPHNE K Ot 401.9 09/10/2014 DEBRA FARMER, DAPHNE K Ot 414.00 09/10/2014 DEBRA FARMER, DAPHNE K Ot 780.57 09/10/2014 DEBRA FARMER, DAPHNE K Ot V45.01 09/10/2014 DEBRA FARMER, DAPHNE K Ot V45.82 09/10/2014 DEBRA FARMER, DAPHNE K Ot V58.61 09/10/2014 DEBRA FARMER, DAPHNE K Ot V58.69 09/10/2014 DEBRA FARMER, DAPHNE K Ot 280.9 09/10/2014 DEBRA FARMER, DAPHNE K Ot 401.9 09/10/2014 DEBRA FARMER, DAPHNE K Ot 414.00 09/10/2014 DEBRA FARMER, DAPHNE K Ot 780.57 09/10/2014 DEBRA FARMER, DAPHNE K Ot V45.01 09/10/2014 DEBRA FARMER, DAPHNE K Ot V45.82 09/10/2014 DEBRA FARMER, DAPHNE K Ot V58.61 09/10/2014 DEBRA FARMER, DAPHNE K Ot V58.69 10/05/2014 DEBRA FARMER, DAPHNE K Ot 280.9 10/05/2014 DEBRA FARMER, DAPHNE K Ot 401.9 10/05/2014 DEBRA FARMER, DAPHNE Sidhu Ot 414.00 10/05/2014 DEBRA FARMER, DAPHNE Sidhu Ot 780.57 10/05/2014 DEBRA FARMER, DAPHNE Sidhu Ot V45.01 10/05/2014 DEBRA FARMER, DAPHNE Sidhu Ot V45.82 10/05/2014 DEBRA FARMER, DAPHNE Sidhu Ot V58.61 10/05/2014 DEBRA FARMER, DAPHNE Sidhu Ot V58.69 10/29/2014 JAMIL FARMER, RHONDA Fitzpatrick Ot 414.00 10/29/2014 JAMIL FARMER, RHONDA Fitzpatrick Ot V58.69 11/10/2014 DEBRA FARMER, DAPHNE Sidhu Ot 280.9 IRON DEFIC ANEMIA NOS 11/10/2014 DEBRA FARMER, DAPHNE Sidhu Ot 401.9 HYPERTENSION NOS 11/10/2014 DEBRA FARMER, DAPHNE Sidhu Ot 414.00 CORON ATHEROSCLER NOS TYPE VESSEL, NATIV 11/10/2014 DEBRA FARMER, DAPHNE Sidhu Ot 780.57 UNSPECIFIED SLEEP APNEA 11/10/2014 DEBRA FARMER, DAPHNE Sidhu Ot V45.01 CARDIAC PACEMAKER IN SITU 11/10/2014 DEBRA FARMER, DAPHNE Sidhu Ot V45.82 PERCUTANEOUS TRANSLUM CORON ANGIOPLASTY 11/10/2014 DEBRA FARMER, DAPHNE Sidhu Ot V58.61 ANTICOAGULANTS,LT,CURRENT USE 11/10/2014 DEBRA FARMER, DAPHNE Sidhu Ot V58.69 OTH MED,LT,CURRENT USE 11/10/2014 DEBRA FARMER, DAPHNE Sidhu Ot 280.9 11/10/2014 DEBRA FARMER, DAPHNE Sidhu Ot 401.9 11/10/2014 DEBRA FARMER, DAPHNE Sidhu Ot 414.00 11/10/2014 DEBRA FARMER, DAPHNE Sidhu Ot 780.57 11/10/2014 DEBRA FARMER, DAPHNE Sidhu Ot V45.01 11/10/2014 DEBRA FARMER, DAPHNE Sidhu Ot V45.82 11/10/2014 DEBRA FARMER, DAPHNE Sidhu Ot V58.61 11/10/2014 DEBRA FARMER, DAPHNE Sidhu Ot V58.69 11/17/2014 DEBRA FARMER, DAPHNE Sidhu Ot 280.9 11/17/2014 DEBRA FARMER, DAPHNE Sidhu Ot 401.9 11/17/2014 DEBRA FARMER, DAPHNE Sidhu Ot 414.00 11/17/2014 DEBRA FARMER, DAPHNE Sidhu Ot 780.57 11/17/2014 DEBRA FARMER, DAPHNE Sidhu Ot V45.01 11/17/2014 DEBRA FARMER, DAPHNE Sidhu Ot V45.82 11/17/2014 DEBRA FARMER, DAPHNE K Ot V58.61 11/17/2014 DEBRA FARMER, DAPHNE K Ot V58.69 11/30/2014 DEBRA FARMER, DAPHNE K Ot 280.9 11/30/2014 DEBRA FARMER, DAPHNE K Ot 401.9 11/30/2014 DEBRA FARMER, DAPHNE K Ot 414.00 11/30/2014 DEBRA FARMER, DAPHNE K Ot 780.57 11/30/2014 DEBRA FARMER, DAPHNE K Ot V45.01 11/30/2014 DEBRA FARMER, DAPHNE K Ot V45.82 11/30/2014 DEBRA FARMER, DAPHNE K Ot V58.61 11/30/2014 DEBRA FARMER, DAPHNE K Ot V58.69 11/30/2014 DEBRA FARMER, DAPHNE K Ot 280.9 11/30/2014 DEBRA FARMER, DAPHNE K Ot 401.9 11/30/2014 DEBRA FARMER, DAPHNE K Ot 414.00 11/30/2014 DEBRA FARMER, DAPHNE K Ot 780.57 11/30/2014 DEBRA FARMER, DAPHNE K Ot V45.01 11/30/2014 DEBRA FARMER, DAPHNE K Ot V45.82 11/30/2014 DEBRA FARMER, DAPHNE K Ot V58.61 11/30/2014 DEBRA FARMER, DAPHNE K Ot V58.69 12/20/2014 DEBRA FARMER, DAPHNE K Ot 280.9 12/20/2014 DEBRA FARMER, DAPHNE Nahum Ot 401.9 12/20/2014 DEBRA FARMER, DAPHNE K Ot 414.00 12/20/2014 DEBRA FARMER, DAPHNE K Ot 780.57 12/20/2014 DEBRA FARMER, DAPHNE K Ot V45.01 12/20/2014 DEBRA FARMER, DAPHNE K Ot V45.82 12/20/2014 DEBRA FARMER, DAPHNE K Ot V58.61 12/20/2014 DEBRA FARMER, DAPHNE K Ot V58.69 01/10/2015 DEBRA FARMER, DAPHNE K Ot D50.9 01/10/2015 DEBRA FARMER, DAPHNE K Ot I10 01/10/2015 DEBRA FARMER, DAPHNE K Ot I25.10 01/10/2015 DEBRA FARMER, DAPHNE K Ot Z23 01/10/2015 DEBRA FARMER, DAPHNE K Ot Z79.01 01/10/2015 DEBRA FARMER, DAPHNE K Ot Z79.899 01/10/2015 DEBRA FARMER, DAPHNE K Ot Z95.0 01/10/2015 DEBRA FARMER, DAPHNE K Ot Z95.5 01/13/2015 DEBRA FARMER, DAPHNE K Ot D50.9 01/13/2015 DEBRA FARMER, DAPHNE Sidhu Ot I10 01/13/2015 DEBRA FARMER, DAPHNE Sidhu Ot I25.10 01/13/2015 DEBRA FARMER, DAPHNE Sidhu Ot Z23 01/13/2015 DEBRA FARMER, DAPHNE Sidhu Ot Z79.01 01/13/2015 DEBRA FARMER, DAPHNE Sidhu Ot Z79.899 01/13/2015 DEBRA FARMER, DAPHNE Sidhu Ot Z95.0 01/13/2015 DEBRA FARMER, DAPHNE Sidhu Ot Z95.5 02/16/2015 DEBRA FARMER, DAPHNE Sidhu Ot D50.9 IRON DEFICIENCY ANEMIA, UNSPECIFIED 02/16/2015 DEBRA FARMER, DAPHNE Sidhu Ot I10 ESSENTIAL (PRIMARY) HYPERTENSION 02/16/2015 DEBRA FARMER, DAPHNE Sidhu Ot I25.10 ATHSCL HEART DISEASE OF [place] CORONARY 02/16/2015 DEBRA FARMER, DAPHNE Sidhu Ot Z23 ENCOUNTER FOR IMMUNIZATION 02/16/2015 DEBRA FARMER, DAPHNE Sidhu Ot Z79.01 BROOM BUNDLER (CURRENT) USE OF ANTICOAGULANT 02/16/2015 DEBRA FARMER, DAPHNE Sidhu Ot Z79.899 OTHER BROOM BUNDLER (CURRENT) DRUG THERAPY 02/16/2015 DEBRA FARMER, DAPHNE Sidhu Ot Z95.0 PRESENCE OF CARDIAC PACEMAKER 02/16/2015 DEBRA FARMER, DAPHNE Sidhu Ot Z95.5 PRESENCE OF CORONARY ANGIOPLASTY IMPLANT 02/18/2015 DEBRA FARMER, DAPHNE Sidhu Ot D50.9 02/18/2015 DEBRA FARMER, DAPHNE Sidhu Ot I10 02/18/2015 DEBRA FARMER, DAPHNE Sidhu Ot I25.10 02/18/2015 DEBRA FARMER, DAPHNE Sidhu Ot Z23 02/18/2015 DEBRA FARMER, DAPHNE Sidhu Ot Z79.01 02/18/2015 DEBRA FARMER, DAPHNE Sidhu Ot Z79.899 02/18/2015 DEBRA FARMER, DAPHNE Sidhu Ot Z95.0 02/18/2015 DEBRA FARMER, DAPHNE Sidhu Ot Z95.5 02/22/2015 DEBRA FARMER, DAPHNE Sidhu Ot D50.9 02/22/2015 DEBRA FARMER, DAPHNE Sidhu Ot I10 02/22/2015 DEBRA FARMER, DAPHNE Sidhu Ot I25.10 02/22/2015 DEBRA FARMER, DAPHNE Sidhu Ot Z23 02/22/2015 DEBRA FARMER, DAPHNE Sihdu Ot Z79.01 02/22/2015 DEBRA FARMER, DAPHNE Sidhu Ot Z79.899 02/22/2015 DEBRA FARMER, DAPHNE K Ot Z95.0 02/22/2015 DEBRA FARMER, DAPHNE Sidhu Ot Z95.5 04/08/2015 DEBRA FARMER, DAPHNE Sidhu Ot D50.9 04/08/2015 DEBRA FARMER, DAPHNE Sidhu Ot I10 04/08/2015 DEBRA FARMER, DAPHNE Sidhu Ot I25.10 04/08/2015 DEBRA FARMER, DAPHNE Sidhu Ot Z79.01 04/08/2015 DEBRA FARMER, DAPHNE Sidhu Ot Z79.899 04/08/2015 DEBRA FARMER, DAPHNE Sidhu Ot Z95.0 04/08/2015 DEBRA FARMER, DAPHNE Sidhu Ot Z95.5 04/14/2015 DEBRA FARMER, DAPHNE Sidhu Ot D50.9 04/14/2015 DEBRA FARMER, DAPHNE Sidhu Ot I10 04/14/2015 DEBRA FARMER, DAPHNE Sidhu Ot I25.10 04/14/2015 DEBRA FARMER, DAPHNE Sidhu Ot Z79.01 04/14/2015 DEBAR FARMER, DAPHNE Sidhu Ot Z79.899 04/14/2015 DEBRA FARMER, DAPHNE Sidhu Ot Z95.0 04/14/2015 DEBRA FARMER, DAPHNE Sidhu Ot Z95.5 05/22/2015 DEBRA FARMER, DAPHNE Sidhu Ot D50.9 IRON DEFICIENCY ANEMIA, UNSPECIFIED 05/22/2015 DEBRA FARMER, DAPHNE Sidhu Ot I10 ESSENTIAL (PRIMARY) HYPERTENSION 05/22/2015 DEBRA FARMER, DAPHNE Sidhu Ot I25.10 ATHSCL HEART DISEASE OF [place] CORONARY 05/22/2015 DEBRA FARMER, DAPHNE Sidhu Ot Z79.01 FDC (CURRENT) USE OF ANTICOAGULANT 05/22/2015 DEBRA FARMER, DAPHNE Sidhu Ot Z79.899 OTHER BROOM BUNDLER (CURRENT) DRUG THERAPY 05/22/2015 DEBRA FARMER, DAPHNE Sidhu Ot Z95.0 PRESENCE OF CARDIAC PACEMAKER 05/22/2015 DEBRA FARMER, DAPHNE Sidhu Ot Z95.5 PRESENCE OF CORONARY ANGIOPLASTY IMPLANT 05/25/2015 DEBRA FARMER, DAPHNE Sidhu Ot D50.9 05/25/2015 DEBRA FARMER, DAPHNE Sidhu Ot I10 05/25/2015 DEBRA FARMER, DAPHNE Sidhu Ot I25.10 05/25/2015 DEBRA FARMER, DAPHNE Sidhu Ot Z79.01 05/25/2015 DEBRA FARMER, DAPHNE Sidhu Ot Z79.899 05/25/2015 DEBRA FARMER, DAPHNE Sidhu Ot Z95.0 05/25/2015 DEBRA FARMER, DAPHNE Sidhu Ot Z95.5 07/04/2015 DAHPNE RICHARDSON MD Ot D50.9 IRON DEFICIENCY ANEMIA, UNSPECIFIED 07/04/2015 DEBRA FARMER, DAPHNE Sidhu Ot I10 ESSENTIAL (PRIMARY) HYPERTENSION 07/04/2015 DAPHNE RICHARDSON MD, Ot I25.10 ATHSCL HEART DISEASE OF [place] CORONARY 07/04/2015 DAPHNE RICHARDSON MD, Ot Z79.01 BROOM BUNDLER (CURRENT) USE OF ANTICOAGULANT 07/04/2015 DAPHNE RICHARDSON MD Ot Z79.899 OTHER BROOM BUNDLER (CURRENT) DRUG THERAPY 07/04/2015 DAPHNE RICHARDSON MD Ot Z95.0 PRESENCE OF CARDIAC PACEMAKER 07/04/2015 DAPHNE RICHARDSON MD Ot Z95.5 PRESENCE OF CORONARY ANGIOPLASTY IMPLANT 07/13/2015 DAPHNE RICHARDSON MD, Ot D50.9 IRON DEFICIENCY ANEMIA, UNSPECIFIED 07/13/2015 DAPHNE RICHARDSON MD, Ot I10 ESSENTIAL (PRIMARY) HYPERTENSION 07/13/2015 DAPHNE RICHARDSON MD, Ot I25.10 ATHSCL HEART DISEASE OF [place] CORONARY 07/13/2015 DAPHNE RICHARDSON MD Ot Z79.01 BROOM BUNDLER (CURRENT) USE OF ANTICOAGULANT 07/13/2015 DAPHNE RICHARDSON MD, Ot Z79.899 OTHER FDC (CURRENT) DRUG THERAPY 07/13/2015 DAPHNE RICHARDSON MD Ot Z95.0 PRESENCE OF CARDIAC PACEMAKER 07/13/2015 DAPHNE RICHARDSON MD Ot Z95.5 PRESENCE OF CORONARY ANGIOPLASTY IMPLANT 08/22/2015 DAPHNE RICHARDSON MD, Ot D50.9 IRON DEFICIENCY ANEMIA, UNSPECIFIED 08/22/2015 DAPHNE RICHARDSON MD Ot I10 ESSENTIAL (PRIMARY) HYPERTENSION 08/22/2015 DAPHNE RICHARDSON MD, Ot I25.10 ATHSCL HEART DISEASE OF [place] CORONARY 08/22/2015 DAPHNE RICHARDSON MD Ot Z79.01 BROOM BUNDLER (CURRENT) USE OF ANTICOAGULANT 08/22/2015 DAPHNE RICHARDSON MD Ot Z79.899 OTHER FDC (CURRENT) DRUG THERAPY 08/22/2015 DAPHNE RICHARDSON MD Ot Z95.0 PRESENCE OF CARDIAC PACEMAKER 08/22/2015 DAPHNE RICHARDSON MD Ot Z95.5 PRESENCE OF CORONARY ANGIOPLASTY IMPLANT 11/21/2015 TAMIKA GAUTHIER PA-C Ot E11.9 TYPE 2 DIABETES MELLITUS WITHOUT COMPLIC 11/21/2015 TAMIKA GAUTHIER PA-C Ot E11.9 TYPE 2 DIABETES MELLITUS WITHOUT COMPLIC 11/21/2015 DAPHNE RICHARDSON MD Ot D50.9 IRON DEFICIENCY ANEMIA, UNSPECIFIED 11/21/2015 DAPHNE RICHARDSON MD Ot I10 ESSENTIAL (PRIMARY) HYPERTENSION 11/21/2015 DAPHNE RICHARDSON MD, Ot I25.10 ATHSCL HEART DISEASE OF [place] CORONARY 11/21/2015 DAPHNE RICHARDSON MD Ot Z79.01 FDC (CURRENT) USE OF ANTICOAGULANT 11/21/2015 DAPHNE RICHARDSON MD, Ot Z79.899 OTHER BROOM BUNDLER (CURRENT) DRUG THERAPY 11/21/2015 DAPHNE RICHARDSON MD Ot Z95.0 PRESENCE OF CARDIAC PACEMAKER 11/21/2015 DAPHNE RICHARDSON MD Ot Z95.5 PRESENCE OF CORONARY ANGIOPLASTY IMPLANT 11/22/2015 DAPHNE RICHARDSON MD, Ot D50.9 IRON DEFICIENCY ANEMIA, UNSPECIFIED 11/22/2015 DAPHNE RICHARDSON MD, Ot I10 ESSENTIAL (PRIMARY) HYPERTENSION 11/22/2015 DAPHNE RICHARDSON MD, Ot I25.10 ATHSCL HEART DISEASE OF [place] CORONARY 11/22/2015 DAPHNE RICHARDSON MD, Ot Z79.01 BROOM BUNDLER (CURRENT) USE OF ANTICOAGULANT 11/22/2015 DAPHNE RICHARDSON MD, Ot Z79.899 OTHER BROOM BUNDLER (CURRENT) DRUG THERAPY 11/22/2015 DAPHNE RICHARDSON MD Ot Z95.0 PRESENCE OF CARDIAC PACEMAKER 11/22/2015 DAPHNE RICHARDSON MD Ot Z95.5 PRESENCE OF CORONARY ANGIOPLASTY IMPLANT 11/25/2015 TAMIKA GAUTHIER PA-C Ot E11.9 TYPE 2 DIABETES MELLITUS WITHOUT COMPLIC 11/25/2015 TAMIKA GAUTHIER PA-C Ot E78.5 HYPERLIPIDEMIA, UNSPECIFIED 11/25/2015 TAMIKA GAUTHIER PA-C Ot I48.91 UNSPECIFIED ATRIAL FIBRILLATION 11/29/2015 BRETT ALEXANDRA Ot 786.05 SHORTNESS OF BREATH 11/29/2015 BRETT ALEXANDRA Ot 786.50 CHEST PAIN NOS 11/29/2015 DILLON FARMER, MARIS García Ot 786.2 COUGH 11/29/2015 RAUDEL FARMER, SHEYLA Lambert Ot 4 86 PNEUMONIA, ORGANISM NOS 11/29/2015 JAMIL FARMER, RHONDA Fitzpatrick Ot 414.00 CORON ATHEROSCLER NOS TYPE VESSEL, NATIV 11/29/2015 RHONDA NEGRON MD Ot V58.69 OTH MED,LT,CURRENT USE 11/29/2015 DAPHNE RICHARDSON MD Ot D50.9 IRON DEFICIENCY ANEMIA, UNSPECIFIED 11/29/2015 DAPHNE RICHARDSON MD, Ot I10 ESSENTIAL (PRIMARY) HYPERTENSION 11/29/2015 DAPHNE RICHARDSON MD Ot I25.10 ATHSCL HEART DISEASE OF [place] CORONARY 11/29/2015 DAPHNE RICHARDSON MD Ot Z79.01 BROOM BUNDLER (CURRENT) USE OF ANTICOAGULANT 11/29/2015 DAPHNE RICHARDSON MD, Ot Z79.899 OTHER BROOM BUNDLER (CURRENT) DRUG THERAPY 11/29/2015 DAPHNE RICHARDSON MD Ot Z95.0 PRESENCE OF CARDIAC PACEMAKER 11/29/2015 DAPHNE RICHARDSON MD Ot Z95.5 PRESENCE OF CORONARY ANGIOPLASTY IMPLANT 11/29/2015 TAMIKA GAUTHIER PA-C Ot E11.9 TYPE 2 DIABETES MELLITUS WITHOUT COMPLIC 11/29/2015 TAMIKA GAUTHIER PA-C Ot E78.5 HYPERLIPIDEMIA, UNSPECIFIED 11/29/2015 TAMIKA GAUTHIER PA-C Ot I48.91 UNSPECIFIED ATRIAL FIBRILLATION 11/30/2015 BRETT ALEXANDRA Ot 786.05 SHORTNESS OF BREATH 11/30/2015 BRETT ALEXANDRA Ot 786.50 CHEST PAIN NOS 11/30/2015 DILLON FARMER, MARIS García Ot 786.2 COUGH 11/30/2015 RAUDEL FARMER, SHEYLA Lambert Ot 4 86 PNEUMONIA, ORGANISM NOS 11/30/2015 JAMIL FARMER, RHONDA Fitzpatrick Ot 414.00 CORON ATHEROSCLER NOS TYPE VESSEL, NATIV 11/30/2015 RHONDA NEGRON MD Ot V58.69 OT MED,LT,CURRENT USE 11/30/2015 DAPHNE RICHARDSON MD Ot D50.9 IRON DEFICIENCY ANEMIA, UNSPECIFIED 11/30/2015 DAPHNE RICHARDSON MD Ot I10 ESSENTIAL (PRIMARY) HYPERTENSION 11/30/2015 DAPHNE RICHARDSON MD, Ot I25.10 ATHSCL HEART DISEASE OF [place] CORONARY 11/30/2015 DAPHNE RICHARDSON MD, Ot Z79.01 FDC (CURRENT) USE OF ANTICOAGULANT 11/30/2015 DAPHNE RICHARDSON MD, Ot Z79.899 OTHER BROOM BUNDLER (CURRENT) DRUG THERAPY 11/30/2015 DAPHNE RICHARDSON MD Ot Z95.0 PRESENCE OF CARDIAC PACEMAKER 11/30/2015 DAPHNE RICHARDSON MD Ot Z95.5 PRESENCE OF CORONARY ANGIOPLASTY IMPLANT 11/30/2015 TAMIKA GAUTHIER PA-C Ot E11.9 TYPE 2 DIABETES MELLITUS WITHOUT COMPLIC 11/30/2015 GAUTHIER, TAMIKA H PA-C Ot E78.5 HYPERLIPIDEMIA, UNSPECIFIED 11/30/2015 GAUTHIERTAMIKA FAIRCHILD PA-C Ot I48.91 UNSPECIFIED ATRIAL FIBRILLATION 11/30/2015 KAYCHEYENNEMilton Roman [employer]UKE BOX SERVICER Ot M25.511 PAIN IN RIGHT SHOULDER 11/30/2015 BECK VILLANUEVA Abel [employer] SERVICER Ot Z95 .0 PRESENCE OF CARDIAC PACEMAKER 12/08/2015 DISHA TAMIKA Brandon PA-C Ot E11.9 TYPE 2 DIABETES MELLITUS WITHOUT COMPLIC 12/08/2015 DISHA TAMIKA CHAVEZ-C Ot E78.5 HYPERLIPIDEMIA, UNSPECIFIED 12/08/2015 DISHATAMIKA PA-C Ot I48.91 UNSPECIFIED ATRIAL FIBRILLATION 12/08/2015 DISHA TAMIKA Brandon PA-C Ot E11.9 TYPE 2 DIABETES MELLITUS WITHOUT COMPLIC 12/08/2015 DISHA TAMIKA Brandon PA-C Ot E78.5 HYPERLIPIDEMIA, UNSPECIFIED 12/08/2015 DISHA TAMIKA Brandon PA-C Ot I48.91 UNSPECIFIED ATRIAL FIBRILLATION 12/08/2015 DISHA TAMIKA Brandon PA-C Ot E11.9 TYPE 2 DIABETES MELLITUS WITHOUT COMPLIC 12/08/2015 DISHA TAMIKA Brandon PA-C Ot E78.5 HYPERLIPIDEMIA, UNSPECIFIED 12/08/2015 DISHA TAMIKA Brandon PA-C Ot I48.91 UNSPECIFIED ATRIAL FIBRILLATION 12/08/2015 DISHA TAMIKA Brandon PA-C Ot E11.9 TYPE 2 DIABETES MELLITUS WITHOUT COMPLIC 12/08/2015 DISHATAMIKA PA-C Ot E78.5 HYPERLIPIDEMIA, UNSPECIFIED 12/08/2015 DISHA TAMIKA Brandon PA-C Ot I48.91 UNSPECIFIED ATRIAL FIBRILLATION 12/13/2015 DISHA TAMIKA Brandon PA-C Ot E11.9 TYPE 2 DIABETES MELLITUS WITHOUT COMPLIC 12/13/2015 DISHATAMIKA PA-C Ot E78.5 HYPERLIPIDEMIA, UNSPECIFIED 12/13/2015 DISHA TAMIKA Brandon PA-C Ot I48.91 UNSPECIFIED ATRIAL FIBRILLATION 12/22/2015 KAYCHEYENNEMilton Roman [employer]UKE BOX SERVICER Ot M25.511 PAIN IN RIGHT SHOULDER 12/22/2015 KAYCHEYENNEMilton Roman [employer] SERVICER Ot Z95 .0 PRESENCE OF CARDIAC PACEMAKER 12/30/2015 KAYCHEYENNEMilton Roman [employer] SERVICER Ot M25.511 PAIN IN RIGHT SHOULDER 12/30/2015 BECK VILLANUEVA CAROLA Ot Z95 .0 PRESENCE OF CARDIAC PACEMAKER 01/11/2016 DAPHNE RICHARDSON MD, Ot D50.9 IRON DEFICIENCY ANEMIA, UNSPECIFIED 01/11/2016 DAPHNE RICHARDSON MD Ot I10 ESSENTIAL (PRIMARY) HYPERTENSION 01/11/2016 DAPHNE RICHARDSON MD Ot I25.10 ATHSCL HEART DISEASE OF [place] CORONARY 01/11/2016 DAPHNE RICHARDSON MD Ot Z79.01 BROOM BUNDLER (CURRENT) USE OF ANTICOAGULANT 01/11/2016 DAPHNE RICHARDSON MD Ot Z79.899 OTHER BROOM [place]UNDLER (CURRENT) DRUG THERAPY 01/11/2016 DAPHNE RICHARDSON MD Ot Z95.0 PRESENCE OF CARDIAC PACEMAKER 01/11/2016 DAPHNE RICHARDSON MD Ot Z95.5 PRESENCE OF CORONARY ANGIOPLASTY IMPLANT 01/19/2016 DAPHNE RICHARDSON MD, Ot D50.9 IRON DEFICIENCY ANEMIA, UNSPECIFIED 01/19/2016 DAPHNE RICHARDSON MD, Ot I10 ESSENTIAL (PRIMARY) HYPERTENSION 01/19/2016 DAPHNE RICHARDSON MD Ot I25.10 ATHSCL HEART DISEASE OF [place] CORONARY 01/19/2016 DAPHNE RICHARDSON MD Ot Z79.01 BROOM BUNDLER (CURRENT) USE OF ANTICOAGULANT 01/19/2016 DAPHNE RICHARDSON MD Ot Z79.899 OTHER [facility] (CURRENT) DRUG THERAPY 01/19/2016 DAPHNE RICHARDSON MD Ot Z95.0 PRESENCE OF CARDIAC PACEMAKER 01/19/2016 DAPHNE RICHARDSON MD Ot Z95.5 PRESENCE OF CORONARY ANGIOPLASTY IMPLANT 02/07/2016 LAURY CARRERO MD Ot I10 ESSENTIAL (PRIMARY) HYPERTENSION 02/07/2016 LAURY CARRERO MD Ot I31. 2 HEMOPERICARDIUM, NOT ELSEWHERE CLASSIFIE 02/07/2016 ALURY CARRERO MD Ot R07. 9 CHEST PAIN, UNSPECIFIED 02/07/2016 LAURY CARRERO MD Ot T82.190A [facility] COMPL OF CARDIAC ELECTRODE, INITIAL 02/07/2016 LAURY CARRERO MD Ot Z79. 02 BROOM [place]DLER (CURRENT) USE OF ANTITHROMBOTI 02/07/2016 LAURY CARRERO MD Ot Z95. 5 PRESENCE OF CORONARY ANGIOPLASTY IMPLANT 02/08/2016 LAURY CARRERO MD Ot I10 ESSENTIAL (PRIMARY) HYPERTENSION 02/08/2016 LAURY CARRERO MD Ot I31. 2 HEMOPERICARDIUM, NOT ELSEWHERE CLASSIFIE 02/08/2016 LAURY CARRERO MD Ot R07. 9 CHEST PAIN, UNSPECIFIED 02/08/2016 LAURY CARRERO MD Ot T82.190A [facility] COMPL OF CARDIAC ELECTRODE, INITIAL 02/08/2016 LAURY CARRERO MD Ot Z79. 02 BROOM BUNDLER (CURRENT) USE OF ANTITHROMBOTI 02/08/2016 LAURY CARRERO MD Ot Z95. 5 PRESENCE OF CORONARY ANGIOPLASTY IMPLANT 02/09/2016 BRETT ALEXANDRA Ot 786.05 SHORTNESS OF BREATH 02/09/2016 BRETT ALEXANDRA Ot 786.50 CHEST PAIN NOS 02/09/2016 DILLON FARMER, MARIS García Ot 786.2 COUGH 02/09/2016 RAUDEL FARMER, SHEYLA Lambert Ot 4 86 PNEUMONIA, ORGANISM NOS 02/09/2016 JAMIL FARMER, RHONDA Fitzpatrick Ot 414.00 CORON ATHEROSCLER NOS TYPE VESSEL, NATIV 02/09/2016 JAMIL FARMER, RHONDA Fitzpatrick Ot V58.69 OT MED,LT,CURRENT USE 02/09/2016 DAPHNE RICHARDSON MD Ot D50.9 IRON DEFICIENCY ANEMIA, UNSPECIFIED 02/09/2016 DAPHNE RICHARDSON MD Ot I10 ESSENTIAL (PRIMARY) HYPERTENSION 02/09/2016 DAPHNE RICHARDSON MD Ot I25.10 ATHSCL HEART DISEASE OF [place] CORONARY 02/09/2016 DAPHNE RICHARDSON MD Ot Z79.01 [facility] (CURRENT) USE OF ANTICOAGULANT 02/09/2016 DAPHNE RICHARDSON MD Ot Z79.899 OTHER BROOM BUNDLER (CURRENT) DRUG THERAPY 02/09/2016 DAPHNE RICHARDSON MD Ot Z95.0 PRESENCE OF CARDIAC PACEMAKER 02/09/2016 DAPHNE RICHARDSON MD Ot Z95.5 PRESENCE OF CORONARY ANGIOPLASTY IMPLANT 02/09/2016 TAMIKA GAUTHIER PA-C Ot E11.9 TYPE 2 DIABETES MELLITUS WITHOUT COMPLIC 02/09/2016 TAMIKA GAUTHIER PA-C Ot E78.5 HYPERLIPIDEMIA, UNSPECIFIED 02/09/2016 TAMIKA GAUTHIER PA-C Ot I48.91 UNSPECIFIED ATRIAL FIBRILLATION 02/09/2016 BECK VILLANUEVA APRN Ot M25.511 PAIN IN RIGHT SHOULDER 02/09/2016 BECK VILLANUEVA APRN Ot Z95 .0 PRESENCE OF CARDIAC PACEMAKER 02/10/2016 TAMIKA GAUTHIER PA-C Ot T82.118A BREAKDOWN (MECHANICAL) OF CARDIAC ELECTR 02/13/2016 LAURY CARRERO MD Ot I10 ESSENTIAL (PRIMARY) HYPERTENSION 02/13/2016 LAURY CARRERO MD, Ot I31. 2 HEMOPERICARDIUM, NOT ELSEWHERE CLASSIFIE 02/13/2016 LAURY CARRERO MD Ot R07. 9 CHEST PAIN, UNSPECIFIED 02/13/2016 LAURY CARRERO MD, Ot T82.190A [facility] COMPL OF CARDIAC ELECTRODE, INITIAL 02/13/2016 LAURY CARRERO MD, Ot Z79. 02 [facility] (CURRENT) USE OF ANTITHROMBOTI 02/13/2016 LAURY CARRERO MD Ot Z95. 5 PRESENCE OF CORONARY ANGIOPLASTY IMPLANT 02/19/2016 DAPHNE RICHARDSON MD Ot D50.9 IRON DEFICIENCY ANEMIA, UNSPECIFIED 02/19/2016 DAPHNE RICHARDSON MD Ot I10 ESSENTIAL (PRIMARY) HYPERTENSION 02/19/2016 DAPHNE RICHARDSON MD Ot I25.10 ATHSCL HEART DISEASE OF [place] CORONARY 02/19/2016 DAPHNE RICHARDSON MD Ot Z23 ENCOUNTER FOR IMMUNIZATION 02/19/2016 DAPHNE RICHARDSON MD Ot Z79.01 BROOM BUNDLER (CURRENT) USE OF ANTICOAGULANT 02/19/2016 DAPHNE RICHARDSON MD Ot Z79.899 OTHER BROOM [place]UNDLER (CURRENT) DRUG THERAPY 02/19/2016 DAPHNE RICHARDSON MD Ot Z95.0 PRESENCE OF CARDIAC PACEMAKER 02/19/2016 DAPHNE RICHARDSON MD Ot Z95.5 PRESENCE OF CORONARY ANGIOPLASTY IMPLANT 02/25/2016 DAPHNE RICHARDSON MD Ot D50.9 IRON DEFICIENCY ANEMIA, UNSPECIFIED 02/25/2016 DAPHNE RICHARDSON MD Ot I10 ESSENTIAL (PRIMARY) HYPERTENSION 02/25/2016 DAPHNE RICHARDSON MD Ot I25.10 ATHSCL HEART DISEASE OF [place] CORONARY 02/25/2016 DAPHNE RICHARDSON MD Ot Z23 ENCOUNTER FOR IMMUNIZATION 02/25/2016 DAPHNE RICHARDSON MD Ot Z79.01 [facility] (CURRENT) USE OF ANTICOAGULANT 02/25/2016 DAPHNE RICHARDSON MD Ot Z79.899 OTHER BROOM [place]UNDLER (CURRENT) DRUG THERAPY 02/25/2016 DAPHNE RICHARDSON MD Ot Z95.0 PRESENCE OF CARDIAC PACEMAKER 02/25/2016 DAPHNE RICHARDSON MD Ot Z95.5 PRESENCE OF CORONARY ANGIOPLASTY IMPLANT 03/01/2016 TAMIKA GAUTHIER PA-C Ot T82.118A BREAKDOWN (MECHANICAL) OF CARDIAC ELECTR 03/07/2016 TAMIKA GAUTHIER PA-C Ot T82.118A BREAKDOWN (MECHANICAL) OF CARDIAC ELECTR 03/28/2016 DAVID LEGGETT DO Ot I10 ESSENTIAL (PRIMARY) HYPERTENSION 03/28/2016 DAVID LEGGETT DO Ot I25.10 ATHSCL HEART DISEASE OF [place] CORONARY 03/28/2016 DAVID LEGGETT DO Ot R00.0 TACHYCARDIA, UNSPECIFIED 03/28/2016 DAVID LEGGETT DO Ot T82.118 A BREAKDOWN (MECHANICAL) OF CARDIAC ELECTR 03/28/2016 DAVID LEGGETT DO Ot Z79.899 OTHER [facility] (CURRENT) DRUG THERAPY 03/28/2016 BETSEY MARIODAVID Ot Z95.5 PRESENCE OF CORONARY ANGIOPLASTY IMPLANT 03/31/2016 LEANN MORENO MD Ot F41.9 ANXIETY DISORDER, UNSPECIFIED 03/31/2016 LEANN MORENO MD Ot 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 03/31/2016 LEANN MORENO MD Ot I48.2 CHRONIC ATRIAL FIBRILLATION 03/31/2016 LEANN MORENO MD Ot R00.2 PALPITATIONS 03/31/2016 LEANN MORENO MD Ot Z95.5 PRESENCE OF CORONARY ANGIOPLASTY IMPLANT 03/31/2016 LEANN MORENO MD Ot Z95.810 PRESENCE OF AUTOMATIC (IMPLANTABLE) CARD 04/03/2016 LEANN MORENO MD Ot F41.9 ANXIETY DISORDER, UNSPECIFIED 04/03/2016 LEANN MORENO MD Ot 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 04/03/2016 LEANN MORENO MD Ot I48.2 CHRONIC ATRIAL FIBRILLATION 04/03/2016 LEANN MORENO MD Ot R00.2 PALPITATIONS 04/03/2016 LEANN MORENO MD Ot Z95.5 PRESENCE OF CORONARY ANGIOPLASTY IMPLANT 04/03/2016 LEANN MORENO MD Ot Z95.810 PRESENCE OF AUTOMATIC (IMPLANTABLE) CARD 04/04/2016 LEANN MORENO MD Ot F41.9 ANXIETY DISORDER, UNSPECIFIED 04/04/2016 LEANN MORENO MD Ot 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 04/04/2016 LEANN MORENO MD Ot I48.2 CHRONIC ATRIAL FIBRILLATION 04/04/2016 LEANN MORENO MD Ot R00.2 PALPITATIONS 04/04/2016 LEANN MORENO MD Ot Z95.5 PRESENCE OF CORONARY ANGIOPLASTY IMPLANT 04/04/2016 LEANN MORENO MD Ot Z95.810 PRESENCE OF AUTOMATIC (IMPLANTABLE) CARD 05/15/2016 DAPHNE RICHARDSON MD Ot D50.9 IRON DEFICIENCY ANEMIA, UNSPECIFIED 05/15/2016 DAPHNE RICHARDSON MD Ot I10 ESSENTIAL (PRIMARY) HYPERTENSION 05/15/2016 DAPHNE RICHARDSON MD Ot I25.10 ATHSCL HEART DISEASE OF [place] CORONARY 05/15/2016 DAPHNE RICHARDSON MD Ot Z79.01 [facility] (CURRENT) USE OF ANTICOAGULANT 05/15/2016 DAPHNE RICHARDSON MD Ot Z79.899 OTHER [facility] (CURRENT) DRUG THERAPY 05/15/2016 DAPHNE RICHARDSON MD Ot Z95.0 PRESENCE OF CARDIAC PACEMAKER 05/15/2016 DAPHNE RICHARDSON MD Ot Z95.5 PRESENCE OF CORONARY ANGIOPLASTY IMPLANT 07/04/2016 DAPHNE RICHARDSON MD, Ot D50.9 IRON DEFICIENCY ANEMIA, UNSPECIFIED 07/04/2016 DAPHNE RICHARDSON MD Ot I10 ESSENTIAL (PRIMARY) HYPERTENSION 07/04/2016 DAPHNE RICHARDSON MD Ot I25.10 ATHSCL HEART DISEASE OF [place] CORONARY 07/04/2016 DAPHNE RICHARDSON MD Ot Z79.01 [facility] (CURRENT) USE OF ANTICOAGULANT 07/04/2016 DAPHNE RICHARDSON MD Ot Z79.899 OTHER [facility] (CURRENT) DRUG THERAPY 07/04/2016 DAPHNE RICHARDSON MD Ot Z95.0 PRESENCE OF CARDIAC PACEMAKER 07/04/2016 DAPHNE RICHARDSON MD Ot Z95.5 PRESENCE OF CORONARY ANGIOPLASTY IMPLANT 07/11/2016 DAPHNE RICHARDSON MD, Ot D50.9 IRON DEFICIENCY ANEMIA, UNSPECIFIED 07/11/2016 DAPHNE RICHARDSON MD Ot I10 ESSENTIAL (PRIMARY) HYPERTENSION 07/11/2016 DAPHNE RICHARDSON MD Ot I25.10 ATHSCL HEART DISEASE OF [place] CORONARY 07/11/2016 DAPHNE RICHARDSON MD Ot Z79.01 [facility] (CURRENT) USE OF ANTICOAGULANT 07/11/2016 DAPHNE RICHARDSON MD Ot Z79.899 OTHER [facility] (CURRENT) DRUG THERAPY 07/11/2016 DAPHNE RICHARDSON MD Ot Z95.0 PRESENCE OF CARDIAC PACEMAKER 07/11/2016 DAPHNE RICHARDSON MD Ot Z95.5 PRESENCE OF CORONARY ANGIOPLASTY IMPLANT 08/12/2016 DAPHNE RICHARDSON MD Ot D50.9 IRON DEFICIENCY ANEMIA, UNSPECIFIED 08/12/2016 DAPHNE RICHARDSON MD Ot I10 ESSENTIAL (PRIMARY) HYPERTENSION 08/12/2016 DAPHNE RICHARDSON MD Ot I25.10 ATHSCL HEART DISEASE OF [place] CORONARY 08/12/2016 DAPHNE RICHARDSON MD Ot Z79.01 [facility] (CURRENT) USE OF ANTICOAGULANT 08/12/2016 DAPHNE RICHARDSON MD Ot Z79.899 OTHER [facility] (CURRENT) DRUG THERAPY 08/12/2016 DAPHNE RICHARDSON MD Ot Z95.0 PRESENCE OF CARDIAC PACEMAKER 08/12/2016 DAPHNE RICHARDSON MD Ot Z95.5 PRESENCE OF CORONARY ANGIOPLASTY IMPLANT 08/17/2016 DAPHNE RICHARDSON MD Ot D50.9 IRON DEFICIENCY ANEMIA, UNSPECIFIED 08/17/2016 DAPHNE RICHARDSON MD Ot I10 ESSENTIAL (PRIMARY) HYPERTENSION 08/17/2016 DAPHNE RICHARDSON MD Ot I25.10 ATHSCL HEART DISEASE OF [place] CORONARY 08/17/2016 DAPHNE RICHARDSON MD Ot Z79.01 [facility] (CURRENT) USE OF ANTICOAGULANT 08/17/2016 DAPHNE RICHARDSON MD Ot Z79.899 OTHER [facility] (CURRENT) DRUG THERAPY 08/17/2016 DAPHNE RICHARDSON MD Ot Z95.0 PRESENCE OF CARDIAC PACEMAKER 08/17/2016 DAPHNE RICHARDSON MD Ot Z95.5 PRESENCE OF CORONARY ANGIOPLASTY IMPLANT 08/22/2016 DAPHNE RICHARDSON MD Ot D50.9 IRON DEFICIENCY ANEMIA, UNSPECIFIED 08/22/2016 DAPHNE RICHARDSON MD Ot I10 ESSENTIAL (PRIMARY) HYPERTENSION 08/22/2016 DAPHNE RICHARDSON MD Ot I25.10 ATHSCL HEART DISEASE OF [place] CORONARY 08/22/2016 DAPHNE RICHARDSON MD Ot Z79.01 [facility] (CURRENT) USE OF ANTICOAGULANT 08/22/2016 DAPHNE RICHARDSON MD Ot Z79.899 OTHER [facility] (CURRENT) DRUG THERAPY 08/22/2016 DAPHNE RICHARDSON MD Ot Z95.0 PRESENCE OF CARDIAC PACEMAKER 08/22/2016 DAPHNE RICHARDSON MD Ot Z95.5 PRESENCE OF CORONARY ANGIOPLASTY IMPLANT 10/09/2016 DAPHNE RICHARDSON MD Ot D50.9 IRON DEFICIENCY ANEMIA, UNSPECIFIED 10/09/2016 DAPHNE RICHARDSON MD Ot I10 ESSENTIAL (PRIMARY) HYPERTENSION 10/09/2016 DAPHNE RICHARDSON MD Ot I25.10 ATHSCL HEART DISEASE OF [place] CORONARY 10/09/2016 DAPHNE RICHARDSON MD Ot Z79.01 [facility] (CURRENT) USE OF ANTICOAGULANT 10/09/2016 DAPHNE RICHARDSON MD Ot Z79.899 OTHER [facility] (CURRENT) DRUG THERAPY 10/09/2016 DAPHNE RICHARDSON MD Ot Z95.0 PRESENCE OF CARDIAC PACEMAKER 10/09/2016 DAPHNE RICHARDSON MD Ot Z95.5 PRESENCE OF CORONARY ANGIOPLASTY IMPLANT 10/16/2016 DAPHNE RICHARDSON MD Ot D50.9 IRON DEFICIENCY ANEMIA, UNSPECIFIED 10/16/2016 DAPHNE RICHARDSON MD Ot I10 ESSENTIAL (PRIMARY) HYPERTENSION 10/16/2016 DAPHNE RICHARDSON MD Ot I25.10 ATHSCL HEART DISEASE OF [place] CORONARY 10/16/2016 DAPHNE RICHARDSON MD Ot Z79.01 [facility] (CURRENT) USE OF ANTICOAGULANT 10/16/2016 DAPHNE RICHARDSON MD Ot Z79.899 OTHER [facility] (CURRENT) DRUG THERAPY 10/16/2016 DAPHNE RICHARDSON MD Ot Z95.0 PRESENCE OF CARDIAC PACEMAKER 10/16/2016 DAPHNE RICHARDSON MD Ot Z95.5 PRESENCE OF CORONARY ANGIOPLASTY IMPLANT 11/10/2016 DAPHNE RICHARDSON MD Ot D50.9 IRON DEFICIENCY ANEMIA, UNSPECIFIED 11/10/2016 DAPHNE RICHARDSON MD Ot I10 ESSENTIAL (PRIMARY) HYPERTENSION 11/10/2016 DAPHNE RICHARDSON MD Ot I25.10 ATHSCL HEART DISEASE OF [place] CORONARY 11/10/2016 DAPHNE RICHARDSON MD Ot Z79.01 [facility] (CURRENT) USE OF ANTICOAGULANT 11/10/2016 DAPHNE RICHARDSON MD Ot Z79.899 OTHER [facility] (CURRENT) DRUG THERAPY 11/10/2016 DAPHNE RICHARDSON MD Ot Z95.0 PRESENCE OF CARDIAC PACEMAKER 11/10/2016 DAPHNE RICHARDSON MD Ot Z95.5 PRESENCE OF CORONARY ANGIOPLASTY IMPLANT 12/21/2016 GARIMA GRUBER Ot D50.9 IRON DEFICIENCY ANEMIA, UNSPECIFIED 12/21/2016 GARIMA GRUBER Ot I10 ESSENTIAL (PRIMARY) HYPERTENSION 12/21/2016 YASMANI UDAYAN N Ot I25.10 ATHSCL HEART DISEASE OF [place] CORONARY 12/21/2016 YASMANI UDAYAN N Ot Z79.01 [facility] (CURRENT) USE OF ANTICOAGULANT 12/21/2016 YASMANI BOBAN N Ot Z79.899 OTHER [facility] (CURRENT) DRUG THERAPY 12/21/2016 YASMANI, BOBAN N Ot Z95.0 PRESENCE OF CARDIAC PACEMAKER 12/21/2016 YASMANI BOBAN N Ot Z95.5 PRESENCE OF CORONARY ANGIOPLASTY IMPLANT 02/05/2017 YASMANIUDAYAN N Ot D50.9 IRON DEFICIENCY ANEMIA, UNSPECIFIED 02/05/2017 YASMANI, BOBAN N Ot I10 ESSENTIAL (PRIMARY) HYPERTENSION 02/05/2017 YASMANI BOBAN N Ot I25.10 ATHSCL HEART DISEASE OF [place] CORONARY 02/05/2017 YASMANIUDAYAN N Ot Z79.01 [facility] [place] (CURRENT) USE OF ANTICOAGULANT 02/05/2017 YASMANI BOBAN N Ot Z79.899 OTHER [facility] [place] (CURRENT) DRUG THERAPY 02/05/2017 YASMANIUDAYAN N Ot Z95.0 PRESENCE OF CARDIAC PACEMAKER 02/05/2017 YASMANIUDAYAN N Ot Z95.5 PRESENCE OF CORONARY ANGIOPLASTY IMPLANT 02/14/2017 YASMANIUDAYAN N Ot D50.9 IRON DEFICIENCY ANEMIA, UNSPECIFIED 02/14/2017 YASMANI BOBAN N Ot I10 ESSENTIAL (PRIMARY) HYPERTENSION 02/14/2017 YASMANI BOBAN N Ot I25.10 ATHSCL HEART DISEASE OF [place] CORONARY 02/14/2017 YASMANIGARIMA N Ot Z79.01 [facility] [place] (CURRENT) USE OF ANTICOAGULANT 02/14/2017 YASMANI BOBAN N Ot Z79.899 OTHER [facility] (CURRENT) DRUG THERAPY 02/14/2017 YASMANI, BOBAN N Ot Z95.0 PRESENCE OF CARDIAC PACEMAKER 02/14/2017 YASMANI BOBAN N Ot Z95.5 PRESENCE OF CORONARY ANGIOPLASTY IMPLANT 03/20/2017 YASMANIUDAYAN N Ot D50.9 IRON DEFICIENCY ANEMIA, UNSPECIFIED 03/20/2017 YASMANI BOBAN N Ot I10 ESSENTIAL (PRIMARY) HYPERTENSION 03/20/2017 YASMANIUDAYAN N Ot I25.10 ATHSCL HEART DISEASE OF [place] CORONARY 03/20/2017 YASMANI, BOBAN N Ot Z79.01 [facility] (CURRENT) USE OF ANTICOAGULANT 03/20/2017 YASMANI, BOBAN N Ot Z79.899 OTHER [facility] (CURRENT) DRUG THERAPY 03/20/2017 YASMANI, BOBAN N Ot Z95.0 PRESENCE OF CARDIAC PACEMAKER 03/20/2017 YASMANI, BOBAN N Ot Z95.5 PRESENCE OF CORONARY ANGIOPLASTY IMPLANT 03/21/2017 YASMANI BOBAN N Ot D50.9 IRON DEFICIENCY ANEMIA, UNSPECIFIED 03/21/2017 YASMANI BOBAN N Ot I10 ESSENTIAL (PRIMARY) HYPERTENSION 03/21/2017 YASMANI, BOBAN N Ot I25.10 ATHSCL HEART DISEASE OF [place] CORONARY 03/21/2017 YASMANIUDAYAN N Ot Z79.01 [facility] (CURRENT) USE OF ANTICOAGULANT 03/21/2017 YASMANI BOBAN N Ot Z79.899 OTHER [facility] [place] (CURRENT) DRUG THERAPY 03/21/2017 YASMANI, BOBAN N Ot Z95.0 PRESENCE OF CARDIAC PACEMAKER 03/21/2017 YASMANIUDAYAN N Ot Z95.5 PRESENCE OF CORONARY ANGIOPLASTY IMPLANT 03/21/2017 YASMANIUDAYAN N Ot D50.9 IRON DEFICIENCY ANEMIA, UNSPECIFIED 03/21/2017 YASMANI, BOBAN N Ot I10 ESSENTIAL (PRIMARY) HYPERTENSION 03/21/2017 YASMANI BOBAN N Ot I25.10 ATHSCL HEART DISEASE OF [place] CORONARY 03/21/2017 YASMANIUDAYAN N Ot Z79.01 [facility] (CURRENT) USE OF ANTICOAGULANT 03/21/2017 YASMANI, BOBAN N Ot Z79.899 OTHER [facility] [place] (CURRENT) DRUG THERAPY 03/21/2017 YASMANIGARIMA N Ot Z95.0 PRESENCE OF CARDIAC PACEMAKER 03/21/2017 YASMANI, BOBAN N Ot Z95.5 PRESENCE OF CORONARY ANGIOPLASTY IMPLANT 05/03/2017 YASMANI BOBAN N Ot D50.9 IRON DEFICIENCY ANEMIA, UNSPECIFIED 05/03/2017 YASMANI BOBAN N Ot I12.9 HYPERTENSIVE CHRONIC KIDNEY DISEASE W ST 05/03/2017 YASMANI BOBAN N Ot I25.10 ATHSCL HEART DISEASE OF [place] CORONARY 05/03/2017 GARIMA GRUBER N Ot N18.3 CHRONIC KIDNEY DISEASE, STAGE 3 (MODERAT 05/03/2017 YASMANIGARIMA N Ot Z79.01 [facility] (CURRENT) USE OF ANTICOAGULANT 05/03/2017 YASMANI, BOBAN N Ot Z79.02 [facility] (CURRENT) USE OF ANTITHROMBOTI 05/03/2017 YASMANI, BOBAN N Ot Z79.899 OTHER [facility] (CURRENT) DRUG THERAPY 05/03/2017 YASMANI, BOBAN N Ot Z95.5 PRESENCE OF CORONARY ANGIOPLASTY IMPLANT 05/03/2017 YASMANI, BOBAN N Ot Z95.810 PRESENCE OF AUTOMATIC (IMPLANTABLE) CARD 05/08/2017 YASMANI, BOBAN N Ot D50.9 IRON DEFICIENCY ANEMIA, UNSPECIFIED 05/08/2017 YASMANI, BOBAN N Ot I12.9 HYPERTENSIVE CHRONIC KIDNEY DISEASE W ST 05/08/2017 YASMANI, BOBAN N Ot I25.10 ATHSCL HEART DISEASE OF [place] CORONARY 05/08/2017 YASMANI, BOBAN N Ot N18.3 CHRONIC KIDNEY DISEASE, STAGE 3 (MODERAT 05/08/2017 YASMANI, BOBAN N Ot Z79.01 [facility] (CURRENT) USE OF ANTICOAGULANT 05/08/2017 YASMANI, BOBAN N Ot Z79.02 [facility] (CURRENT) USE OF ANTITHROMBOTI 05/08/2017 YASMANI, BOBAN N Ot Z79.899 OTHER [facility] (CURRENT) DRUG THERAPY 05/08/2017 YASMANI, BOBAN N Ot Z95.5 PRESENCE OF CORONARY ANGIOPLASTY IMPLANT 05/08/2017 YASMANI, BOBAN N Ot Z95.810 PRESENCE OF AUTOMATIC (IMPLANTABLE) CARD 06/24/2017 YASMANI, BOBAN N Ot D50.9 IRON DEFICIENCY ANEMIA, UNSPECIFIED 06/24/2017 YASMANI, BOBAN N Ot I12.9 HYPERTENSIVE CHRONIC KIDNEY DISEASE W ST 06/24/2017 YASMANI, BOBAN N Ot I25.10 ATHSCL HEART DISEASE OF [place] CORONARY 06/24/2017 YASMANI, BOBAN N Ot N18.3 CHRONIC KIDNEY DISEASE, STAGE 3 (MODERAT 06/24/2017 YASMANI, BOBAN N Ot Z79.01 [facility] (CURRENT) USE OF ANTICOAGULANT 06/24/2017 YASMANI, BOBAN N Ot Z79.02 [facility] (CURRENT) USE OF ANTITHROMBOTI 06/24/2017 YASMANI, BOBAN N Ot Z79.899 OTHER [facility] [place] (CURRENT) DRUG THERAPY 06/24/2017 YASMANI, BOBAN N Ot Z95.5 PRESENCE OF CORONARY ANGIOPLASTY IMPLANT 06/24/2017 GARIMA GRUBER Uriel Ot Z95.810 PRESENCE OF AUTOMATIC (IMPLANTABLE) CARD 07/24/2017 GARIMA GRUBER Uriel Ot D50.9 IRON DEFICIENCY ANEMIA, UNSPECIFIED 07/24/2017 GARIMA GRUBER Uriel Ot I12.9 HYPERTENSIVE CHRONIC KIDNEY DISEASE W ST 07/24/2017 GARIMA GRUBER Uriel Ot I25.10 ATHSCL HEART DISEASE OF [place] CORONARY 07/24/2017 YASMANI UDAYBONNIE Uriel Ot N18.3 CHRONIC KIDNEY DISEASE, STAGE 3 (MODERAT 07/24/2017 GARIMA GRUBER Uriel Ot Z79.01 [facility] (CURRENT) USE OF ANTICOAGULANT 07/24/2017 YASMANI GARIMA Trevino Ot Z79.02 [facility] (CURRENT) USE OF ANTITHROMBOTI 07/24/2017 GARIMA GRUBER Uriel Ot Z79.899 OTHER [facility] (CURRENT) DRUG THERAPY 07/24/2017 GARIMA GRUBER Uriel Ot Z95.5 PRESENCE OF CORONARY ANGIOPLASTY IMPLANT 07/24/2017 YASMANIGARIMA RODRIGUEZ Uriel Ot Z95.810 PRESENCE OF AUTOMATIC (IMPLANTABLE) CARD 08/20/2017 KAYLEIGH AVENDANO MD Ot E78.00 PURE HYPERCHOLESTEROLEMIA, UNSPECIFIED 08/20/2017 KAYLEIGH AVENDANO MD Ot I10 ESSENTIAL (PRIMARY) HYPERTENSION 08/20/2017 KAYLEIGH AVENDANO MD Ot I25.10 ATHSCL HEART DISEASE OF [place] CORONARY 08/20/2017 KAYLEIGH AVENDANO MD Ot I48.91 UNSPECIFIED ATRIAL FIBRILLATION 08/20/2017 KAYLEIGH AVENDANO MD Ot M54.16 RADICULOPATHY, LUMBAR REGION 08/20/2017 KAYLEIGH AVENDANO MD Ot M54.5 LOW BACK PAIN 08/20/2017 KAYLEIGH AVENDANO MD Ot Z80.3 FAMILY HISTORY OF MALIGNANT NEOPLASM OF 08/20/2017 KAYLEIGH AVENDANO MD Ot Z90.49 ACQUIRED ABSENCE OF OTHER SPECIFIED PART 08/20/2017 KAYLEIGH AVENDANO MD Ot Z95.5 PRESENCE OF CORONARY ANGIOPLASTY IMPLANT 08/20/2017 KAYLEIGH AVENDANO MD Ot Z95.810 PRESENCE OF AUTOMATIC (IMPLANTABLE) CARD 08/22/2017 KAYLEIGH AVENDANO MD Ot E78.00 PURE HYPERCHOLESTEROLEMIA, UNSPECIFIED 08/22/2017 KAYLEIGH AVENDANO MD Ot I10 ESSENTIAL (PRIMARY) HYPERTENSION 08/22/2017 KAYLEIGH AVENDANO MD Ot I25.10 ATHSCL HEART DISEASE OF [place] CORONARY 08/22/2017 KAYLEIGH AVENDANO MD Ot I48.91 UNSPECIFIED ATRIAL FIBRILLATION 08/22/2017 KAYLEIGH AVENDANO MD Ot M54.16 RADICULOPATHY, LUMBAR REGION 08/22/2017 KAYLEIGH AVENDANO MD, Ot M54.5 LOW BACK PAIN 08/22/2017 KAYLEIGH AVENDANO MD Ot Z80.3 FAMILY HISTORY OF MALIGNANT NEOPLASM OF 08/22/2017 KAYLEIGH AVENDANO MD Ot Z90.49 ACQUIRED ABSENCE OF OTHER SPECIFIED PART 08/22/2017 KAYLEIGH AVENDANO MD Ot Z95.5 PRESENCE OF CORONARY ANGIOPLASTY IMPLANT 08/22/2017 KAYLEIGH AVENDANO MD Ot Z95.810 PRESENCE OF AUTOMATIC (IMPLANTABLE) CARD 09/02/2017 GARIMA GRUBER Ot D50.9 IRON DEFICIENCY ANEMIA, UNSPECIFIED 09/02/2017 GARIMA GRUBER Ot I12.9 HYPERTENSIVE CHRONIC KIDNEY DISEASE W ST 09/02/2017 GARIMA GRUBER Ot I25.10 ATHSCL HEART DISEASE OF [place] CORONARY 09/02/2017 GARIMA GRUBER Ot N18.3 CHRONIC KIDNEY DISEASE, STAGE 3 (MODERAT 09/02/2017 GARIMA GRUBER Ot Z79.01 [facility] (CURRENT) USE OF ANTICOAGULANT 09/02/2017 GARIMA GRUBER N Ot Z79.02 [place] (CURRENT) USE OF ANTITHROMBOTI 09/02/2017 GARIMA GRUBER N Ot Z79.899 OTHER [place] (CURRENT) DRUG THERAPY 09/02/2017 GARIAM GRUBER N Ot Z95.5 PRESENCE OF CORONARY ANGIOPLASTY IMPLANT 09/02/2017 GARIMA GRUBER Ot Z95.810 PRESENCE OF AUTOMATIC (IMPLANTABLE) CARD 09/04/2017 GARIMA GRUBER N Ot D50.9 IRON DEFICIENCY ANEMIA, UNSPECIFIED 09/04/2017 GARIMA GRUBER N Ot I12.9 HYPERTENSIVE CHRONIC KIDNEY DISEASE W ST 09/04/2017 GARIMA GRUBER N Ot I25.10 ATHSCL HEART DISEASE OF [place] CORONARY 09/04/2017 YASMANI, BOBAN N Ot N18.3 CHRONIC KIDNEY DISEASE, STAGE 3 (MODERAT 09/04/2017 YASMANI, BOBAN N Ot Z79.01 [facility] (CURRENT) USE OF ANTICOAGULANT 09/04/2017 YASMANI, BOBAN N Ot Z79.02 [facility] (CURRENT) USE OF ANTITHROMBOTI 09/04/2017 YASMANI, BOBAN N Ot Z79.899 OTHER [place] (CURRENT) DRUG THERAPY 09/04/2017 YASMANI, BOBAN N Ot Z95.5 PRESENCE OF CORONARY ANGIOPLASTY IMPLANT 09/04/2017 YASMANI, BOBAN N Ot Z95.810 PRESENCE OF AUTOMATIC (IMPLANTABLE) CARD 10/21/2017 YASMANI, BOBAN N Ot D50.9 IRON DEFICIENCY ANEMIA, UNSPECIFIED 10/21/2017 YASMANI, BOBAN N Ot I12.9 HYPERTENSIVE CHRONIC KIDNEY DISEASE W ST 10/21/2017 YASMANI, BOBAN N Ot I25.10 ATHSCL HEART DISEASE OF [place] CORONARY 10/21/2017 YASMANI, BOBAN N Ot N18.3 CHRONIC KIDNEY DISEASE, STAGE 3 (MODERAT 10/21/2017 YASMANI, BOBAN N Ot Z79.01 [facility] (CURRENT) USE OF ANTICOAGULANT 10/21/2017 YASMANI, BOBAN N Ot Z79.02 [facility] (CURRENT) USE OF ANTITHROMBOTI 10/21/2017 YASMANI, BOBAN N Ot Z79.899 OTHER [facility] (CURRENT) DRUG THERAPY 10/21/2017 YASMANI, BOBAN N Ot Z95.5 PRESENCE OF CORONARY ANGIOPLASTY IMPLANT 10/21/2017 YASMANI, BOBAN N Ot Z95.810 PRESENCE OF AUTOMATIC (IMPLANTABLE) CARD 10/27/2017 YASMANI, BOBAN N Ot D50.9 IRON DEFICIENCY ANEMIA, UNSPECIFIED 10/27/2017 YASMANI, BOBAN N Ot I12.9 HYPERTENSIVE CHRONIC KIDNEY DISEASE W ST 10/27/2017 YASMANI, BOBAN N Ot I25.10 ATHSCL HEART DISEASE OF [place] CORONARY 10/27/2017 YASMANI, BOBAN N Ot N18.3 CHRONIC KIDNEY DISEASE, STAGE 3 (MODERAT 10/27/2017 YASMANI, BOBAN N Ot Z79.01 [place] (CURRENT) USE OF ANTICOAGULANT 10/27/2017 YASMANI, BOBAN N Ot Z79.02 [place] (CURRENT) USE OF ANTITHROMBOTI 10/27/2017 GARIMA GRUBER Ot Z79.899 OTHER [facility] (CURRENT) DRUG THERAPY 10/27/2017 GARIMA GRUBER Ot Z95.5 PRESENCE OF CORONARY ANGIOPLASTY IMPLANT 10/27/2017 GARIMA GRUBER Ot Z95.810 PRESENCE OF AUTOMATIC (IMPLANTABLE) CARD 12/09/2017 BRETT ALEXANDRA Ot 786.05 SHORTNESS OF BREATH 12/09/2017 BRETT ALEXANDRA Ot 786.50 CHEST PAIN NOS 12/09/2017 DILLON FARMER, MARIS S Ot 786.2 COUGH 12/09/2017 RAUDEL FARMER, SHEYLA P Ot 4 86 PNEUMONIA, ORGANISM NOS 12/09/2017 JAMIL FARMER, RHONDA Fitzpatrick Ot 414.00 CORON ATHEROSCLER NOS TYPE VESSEL, NATIV 12/09/2017 JAMIL FARMER, RHONDA Fitzpatrick Ot V58.69 OTH MED,LT,CURRENT USE 12/09/2017 TAMIKA GAUTHIER PA-C Ot E11.9 TYPE 2 DIABETES MELLITUS WITHOUT COMPLIC 12/09/2017 TAMIKA GAUTHIER PA-C Ot E78.5 HYPERLIPIDEMIA, UNSPECIFIED 12/09/2017 TAMIKA GAUTHIER PA-C Ot I48.91 UNSPECIFIED ATRIAL FIBRILLATION 12/09/2017 BECK VILLANUEVA APRN Ot M25.511 PAIN IN RIGHT SHOULDER 12/09/2017 BECK VILLANUEVA APRN Ot Z95 .0 PRESENCE OF CARDIAC PACEMAKER 12/09/2017 TAMIKA GAUTHIER PA-C Ot T82.118A BREAKDOWN (MECHANICAL) OF CARDIAC ELECTR 01/09/2018 GARIMA GRUBER Ot D50.9 IRON DEFICIENCY ANEMIA, UNSPECIFIED 01/09/2018 GARIMA GRUBER Ot I12.9 HYPERTENSIVE CHRONIC KIDNEY DISEASE W ST 01/09/2018 GARIMA GRUBER Ot I25.10 ATHSCL HEART DISEASE OF [place] CORONARY 01/09/2018 GARIMA GRUBER Ot N18.3 CHRONIC KIDNEY DISEASE, STAGE 3 (MODERAT 01/09/2018 GARIMA GRUBER Ot Z79.01 [place] (CURRENT) USE OF ANTICOAGULANT 01/09/2018 GARIMA GRUBER Ot Z79.02 F[facility] (CURRENT) USE OF ANTITHROMBOTI 01/09/2018 YASMANI, BOBAN N Ot Z79.899 OTHER [facility] (CURRENT) DRUG THERAPY 01/09/2018 YASMANIUDAYAN N Ot Z95.5 PRESENCE OF CORONARY ANGIOPLASTY IMPLANT 01/09/2018 YASMANI BOBAN N Ot Z95.810 PRESENCE OF AUTOMATIC (IMPLANTABLE) CARD 02/14/2018 YASMANIUDAYAN N Ot D50.9 IRON DEFICIENCY ANEMIA, UNSPECIFIED 02/14/2018 YASMANIUDAYAN N Ot I12.9 HYPERTENSIVE CHRONIC KIDNEY DISEASE W ST 02/14/2018 YASMANIGARIMA N Ot I25.10 ATHSCL HEART DISEASE OF [place] CORONARY 02/14/2018 YASMANIGARIMA N Ot N18.3 CHRONIC KIDNEY DISEASE, STAGE 3 (MODERAT 02/14/2018 YASMANIUDAYAN N Ot Z79.01 [facility] (CURRENT) USE OF ANTICOAGULANT 02/14/2018 YASMANI BOBAN N Ot Z79.02 BR[place] (CURRENT) USE OF ANTITHROMBOTI 02/14/2018 YASMANIGARIMA N Ot Z79.899 OTHER [facility] (CURRENT) DRUG THERAPY 02/14/2018 YASMANIGARIMA N Ot Z95.5 PRESENCE OF CORONARY ANGIOPLASTY IMPLANT 02/14/2018 YASMANIGARIMA N Ot Z95.810 PRESENCE OF AUTOMATIC (IMPLANTABLE) CARD 03/09/2018 YASMANIGARIMA RODRIGUEZ N Ot D50.9 IRON DEFICIENCY ANEMIA, UNSPECIFIED 03/09/2018 YASMANIGARIMA N Ot I12.9 HYPERTENSIVE CHRONIC KIDNEY DISEASE W ST 03/09/2018 YASMANIGARIMA N Ot I25.10 ATHSCL HEART DISEASE OF [place] CORONARY 03/09/2018 YASMANIGARIMA N Ot N18.3 CHRONIC KIDNEY DISEASE, STAGE 3 (MODERAT 03/09/2018 YASMANIUDAYAN N Ot Z79.01 BROOM BUNDLER (CURRENT) USE OF ANTICOAGULANT 03/09/2018 YASMANI BOBAN N Ot Z79.02 [facility] (CURRENT) USE OF ANTITHROMBOTI 03/09/2018 YASMANI, BOBAN N Ot Z79.899 OTHER [facility] (CURRENT) DRUG THERAPY 03/09/2018 YASMANI BOBAN N Ot Z95.5 PRESENCE OF CORONARY ANGIOPLASTY IMPLANT 03/09/2018 YASMANIGARIMA N Ot Z95.810 PRESENCE OF AUTOMATIC (IMPLANTABLE) CARD 03/15/2018 YASMANI, BOBAN N Ot D50.9 IRON DEFICIENCY ANEMIA, UNSPECIFIED 03/15/2018 YASMANIGARIMA N Ot I12.9 HYPERTENSIVE CHRONIC KIDNEY DISEASE W ST 03/15/2018 YAMSANIGARIMA N Ot I25.10 ATHSCL HEART DISEASE OF [place] CORONARY 03/15/2018 YASMANIGARIMA N Ot N18.3 CHRONIC KIDNEY DISEASE, STAGE 3 (MODERAT 03/15/2018 YASMANIGARIMA N Ot Z79.01 BROOM BUNDLER (CURRENT) USE OF ANTICOAGULANT 03/15/2018 YASMANI BOBAN N Ot Z79.02 [facility] (CURRENT) USE OF ANTITHROMBOTI 03/15/2018 YASMANI, BOBAN N Ot Z79.899 OTHER BROOM [place]UNDLER (CURRENT) DRUG THERAPY 03/15/2018 YASMANIGARIMA N Ot Z95.5 PRESENCE OF CORONARY ANGIOPLASTY IMPLANT 03/15/2018 YASMANI BOBAN N Ot Z95.810 PRESENCE OF AUTOMATIC (IMPLANTABLE) CARD 06/04/2018 YASMANIGARIMA N Ot D50.9 IRON DEFICIENCY ANEMIA, UNSPECIFIED 06/04/2018 YASMANIGARIMA N Ot I12.9 HYPERTENSIVE CHRONIC KIDNEY DISEASE W ST 06/04/2018 YASMANIGARIMA N Ot I25.10 ATHSCL HEART DISEASE OF [place] CORONARY 06/04/2018 YASMANIGARIMA N Ot N18.3 CHRONIC KIDNEY DISEASE, STAGE 3 (MODERAT 06/04/2018 YASMANIUDAYAN N Ot Z79.01 [facility] (CURRENT) USE OF ANTICOAGULANT 06/04/2018 YASMANIUDAYAN N Ot Z79.02 BROOM BUNDLER (CURRENT) USE OF ANTITHROMBOTI 06/04/2018 YASMANIGARIMA N Ot Z79.899 OTHER BROOM BUNDLER (CURRENT) DRUG THERAPY 06/04/2018 YASMANIGARIMA N Ot Z95.5 PRESENCE OF CORONARY ANGIOPLASTY IMPLANT 06/04/2018 YASMANI BOBAN N Ot Z95.810 PRESENCE OF AUTOMATIC (IMPLANTABLE) CARD 07/10/2018 YASMANIGARIMA N Ot D50.9 IRON DEFICIENCY ANEMIA, UNSPECIFIED 07/10/2018 YASMANI BOBAN N Ot I12.9 HYPERTENSIVE CHRONIC KIDNEY DISEASE W ST 07/10/2018 YASMANIUDAYAN N Ot I25.10 ATHSCL HEART DISEASE OF [place] CORONARY 07/10/2018 YASMANI, BOBAN N Ot N18.3 CHRONIC KIDNEY DISEASE, STAGE 3 (MODERAT 07/10/2018 YASMANI, BOBAN N Ot Z79.01 BROOM [place]UNDL[place] (CURRENT) USE OF ANTICOAGULANT 07/10/2018 YASMANI, BOBAN N Ot Z79.02 [facility] (CURRENT) USE OF ANTITHROMBOTI 07/10/2018 YASMANI, BOBAN N Ot Z79.899 OTHER [facility] (CURRENT) DRUG THERAPY 07/10/2018 YASMANI, BOBAN N Ot Z95.5 PRESENCE OF CORONARY ANGIOPLASTY IMPLANT 07/10/2018 YASMANI, BOBAN N Ot Z95.810 PRESENCE OF AUTOMATIC (IMPLANTABLE) CARD 08/05/2018 YASMANI, BOBAN N Ot D50.9 IRON DEFICIENCY ANEMIA, UNSPECIFIED 08/05/2018 YASMANI, BOBAN N Ot I12.9 HYPERTENSIVE CHRONIC KIDNEY DISEASE W ST 08/05/2018 YASMANI, BOBAN N Ot I25.10 ATHSCL HEART DISEASE OF [place] CORONARY 08/05/2018 YASMANI, BOBAN N Ot N18.3 CHRONIC KIDNEY DISEASE, STAGE 3 (MODERAT 08/05/2018 YASMANI, BOBAN N Ot Z79.01 [facility] (CURRENT) USE OF ANTICOAGULANT 08/05/2018 YASMANI, BOBAN N Ot Z79.02 [facility] (CURRENT) USE OF ANTITHROMBOTI 08/05/2018 YASMANI, BOBAN N Ot Z79.899 OTHER BROOM [place]DLER (CURRENT) DRUG THERAPY 08/05/2018 YASMANI, BOBAN N Ot Z95.5 PRESENCE OF CORONARY ANGIOPLASTY IMPLANT 08/05/2018 YASMANI, BOBAN N Ot Z95.810 PRESENCE OF AUTOMATIC (IMPLANTABLE) CARD 08/06/2018 YASMANI, BOBAN N Ot D50.9 IRON DEFICIENCY ANEMIA, UNSPECIFIED 08/06/2018 YASMANI, BOBAN N Ot I12.9 HYPERTENSIVE CHRONIC KIDNEY DISEASE W ST 08/06/2018 YASMANI, BOBAN N Ot I25.10 ATHSCL HEART DISEASE OF [place] CORONARY 08/06/2018 YASMANI, BOBAN N Ot N18.3 CHRONIC KIDNEY DISEASE, STAGE 3 (MODERAT 08/06/2018 YASMANI, BOBAN N Ot Z79.01 BROOM [place]DL[place] (CURRENT) USE OF ANTICOAGULANT 08/06/2018 YASMANI, BOBAN N Ot Z79.02 BROOM [place] (CURRENT) USE OF ANTITHROMBOTI 08/06/2018 YASMANI, BOBAN N Ot Z79.899 OTHER BROOM [place] (CURRENT) DRUG THERAPY 08/06/2018 YASMANI, BOBAN N Ot Z95.5 PRESENCE OF CORONARY ANGIOPLASTY IMPLANT 08/06/2018 YASMANI, BOBAN N Ot Z95.810 PRESENCE OF AUTOMATIC (IMPLANTABLE) CARD 08/11/2018 YASMANI, BOBAN N Ot D50.9 IRON DEFICIENCY ANEMIA, UNSPECIFIED 08/11/2018 YASMANI, BOBAN N Ot I12.9 HYPERTENSIVE CHRONIC KIDNEY DISEASE W ST 08/11/2018 YASMANI, BOBAN N Ot I25.10 ATHSCL HEART DISEASE OF [place] CORONARY 08/11/2018 YASMANI, BOBAN N Ot N18.3 CHRONIC KIDNEY DISEASE, STAGE 3 (MODERAT 08/11/2018 YASMANI, BOBAN N Ot Z79.01 BROOM [place]UNDL[place] (CURRENT) USE OF ANTICOAGULANT 08/11/2018 YASMANI, BOBAN N Ot Z79.02 BRO[place] (CURRENT) USE OF ANTITHROMBOTI 08/11/2018 YASMANI, BOBAN N Ot Z79.899 OTHER BROOM [place] (CURRENT) DRUG THERAPY 08/11/2018 YASMANI, BOBAN N Ot Z95.5 PRESENCE OF CORONARY ANGIOPLASTY IMPLANT 08/11/2018 YASMANI, BOBAN N Ot Z95.810 PRESENCE OF AUTOMATIC (IMPLANTABLE) CARD 08/22/2018 YASMANI, BOBAN N Ot D50.9 IRON DEFICIENCY ANEMIA, UNSPECIFIED 08/22/2018 YASMANI, BOBAN N Ot I12.9 HYPERTENSIVE CHRONIC KIDNEY DISEASE W ST 08/22/2018 YASMANI, BOBAN N Ot I25.10 ATHSCL HEART DISEASE OF [place] CORONARY 08/22/2018 YASMANI BOBAN N Ot N18.3 CHRONIC KIDNEY DISEASE, STAGE 3 (MODERAT 08/22/2018 YASMANI, BOBAN N Ot Z79.01 [facility] (CURRENT) USE OF ANTICOAGULANT 08/22/2018 YASMANI, BOBAN N Ot Z79.02 BROOM BUNDLER (CURRENT) USE OF ANTITHROMBOTI 08/22/2018 YASMANI, BOBAN N Ot Z79.899 OTHER BROOM BUNDLER (CURRENT) DRUG THERAPY 08/22/2018 YASMANI, BOBAN N Ot Z95.5 PRESENCE OF CORONARY ANGIOPLASTY IMPLANT 08/22/2018 YASMANI, BOBAN N Ot Z95.810 PRESENCE OF AUTOMATIC (IMPLANTABLE) CARD 10/02/2018 YASMANI, BOBAN N Ot D50.9 IRON DEFICIENCY ANEMIA, UNSPECIFIED 10/02/2018 YASMANI, BOBAN N Ot I12.9 HYPERTENSIVE CHRONIC KIDNEY DISEASE W ST 10/02/2018 YASMANI, BOBAN N Ot I25.10 ATHSCL HEART DISEASE OF [place] CORONARY 10/02/2018 YASMANI, BOBAN N Ot N18.3 CHRONIC KIDNEY DISEASE, STAGE 3 (MODERAT 10/02/2018 YASMANI BOBAN N Ot Z79.01 FDC (CURRENT) USE OF ANTICOAGULANT 10/02/2018 YASMANI, BOBAN N Ot Z79.02 BROOM BUNDLER (CURRENT) USE OF ANTITHROMBOTI 10/02/2018 YASMANI, BOBAN N Ot Z79.899 OTHER BROOM BUNDLER (CURRENT) DRUG THERAPY 10/02/2018 YASMANI, BOBAN N Ot Z95.5 PRESENCE OF CORONARY ANGIOPLASTY IMPLANT 10/02/2018 YASMANI, BOBAN N Ot Z95.810 PRESENCE OF AUTOMATIC (IMPLANTABLE) CARD 10/08/2018 YASMANI, BOBAN N Ot D50.9 IRON DEFICIENCY ANEMIA, UNSPECIFIED 10/08/2018 YASMANI, BOBAN N Ot I12.9 HYPERTENSIVE CHRONIC KIDNEY DISEASE W ST 10/08/2018 YASMANI, BOBAN N Ot I25.10 ATHSCL HEART DISEASE OF [place] CORONARY 10/08/2018 YASMANI, BOBAN N Ot N18.3 CHRONIC KIDNEY DISEASE, STAGE 3 (MODERAT 10/08/2018 YASMANI, BOBAN N Ot Z79.01 BROOM BUNDLER (CURRENT) USE OF ANTICOAGULANT 10/08/2018 YASMANI, BOBAN N Ot Z79.02 BROOM BUNDLER (CURRENT) USE OF ANTITHROMBOTI 10/08/2018 YASMANI, BOBAN N Ot Z79.899 OTHER BROOM BUNDLER (CURRENT) DRUG THERAPY 10/08/2018 YASMANI, BOBAN N Ot Z95.5 PRESENCE OF CORONARY ANGIOPLASTY IMPLANT 10/08/2018 YSAMANI, BOBAN N Ot Z95.810 PRESENCE OF AUTOMATIC (IMPLANTABLE) CARD 11/18/2018 YASMANI, BOBAN N Ot D50.9 IRON DEFICIENCY ANEMIA, UNSPECIFIED 11/18/2018 YASMANI, BOBAN N Ot I12.9 HYPERTENSIVE CHRONIC KIDNEY DISEASE W ST 11/18/2018 YASMANI, BOBAN N Ot I25.10 ATHSCL HEART DISEASE OF [place] CORONARY 11/18/2018 YASMANI BOBAN N Ot N18.3 CHRONIC KIDNEY DISEASE, STAGE 3 (MODERAT 11/18/2018 YASMANI, BOBAN N Ot Z79.01 [facility]DC (CURRENT) USE OF ANTICOAGULANT 11/18/2018 YASMANI, BOBAN N Ot Z79.02 FDC (CURRENT) USE OF ANTITHROMBOTI 11/18/2018 YASMANI, BOBAN N Ot Z79.899 OTHER BROOM BUNDLER (CURRENT) DRUG THERAPY 11/18/2018 YASMANI, BOBAN N Ot Z95.5 PRESENCE OF CORONARY ANGIOPLASTY IMPLANT 11/18/2018 YASMANI, BOBAN N Ot Z95.810 PRESENCE OF AUTOMATIC (IMPLANTABLE) CARD 11/19/2018 YASMANI, BOBAN N Ot D50.9 IRON DEFICIENCY ANEMIA, UNSPECIFIED 11/19/2018 YASMANI, BOBAN N Ot I12.9 HYPERTENSIVE CHRONIC KIDNEY DISEASE W ST 11/19/2018 YASMANI, BOBAN N Ot I25.10 ATHSCL HEART DISEASE OF [place] CORONARY 11/19/2018 YASMANI, BOBAN N Ot N18.3 CHRONIC KIDNEY DISEASE, STAGE 3 (MODERAT 11/19/2018 YASMANI, BOBAN N Ot Z79.01 BROOM BUNDLER (CURRENT) USE OF ANTICOAGULANT 11/19/2018 YASMANI, BOBAN N Ot Z79.02 BROOM BUNDLER (CURRENT) USE OF ANTITHROMBOTI 11/19/2018 YASMANI, BOBAN N Ot Z79.899 OTHER [facility] (CURRENT) DRUG THERAPY 11/19/2018 YASMANI, BOBAN N Ot Z95.5 PRESENCE OF CORONARY ANGIOPLASTY IMPLANT 11/19/2018 YASMANI, BOBAN N Ot Z95.810 PRESENCE OF AUTOMATIC (IMPLANTABLE) CARD 12/15/2018 YASMANI, BOBAN N Ot D50.9 IRON DEFICIENCY ANEMIA, UNSPECIFIED 12/15/2018 YASMANI, BOBAN N Ot D69.6 THROMBOCYTOPENIA, UNSPECIFIED 12/15/2018 YASMANI, BOBAN N Ot I25.10 ATHSCL HEART DISEASE OF [place] CORONARY 12/15/2018 YASMANI, BOBAN N Ot N18.3 CHRONIC KIDNEY DISEASE, STAGE 3 (MODERAT 12/15/2018 YASMANI, BOBAN N Ot Z79.899 OTHER [facility] (CURRENT) DRUG THERAPY 01/06/2019 YASMANI, BOBAN N Ot D50.9 IRON DEFICIENCY ANEMIA, UNSPECIFIED 01/06/2019 YASMANI, BOBAN N Ot D69.6 THROMBOCYTOPENIA, UNSPECIFIED 01/06/2019 GARIMA GRUBER Ot I25.10 ATHSCL HEART DISEASE OF [place] CORONARY 01/06/2019 GARIMA GRUBER Ot N18.3 CHRONIC KIDNEY DISEASE, STAGE 3 (MODERAT 01/06/2019 GARIMA GRUBER Ot Z79.899 OTHER BROOM BUNDLER (CURRENT) DRUG THERAPY 01/07/2019 GARIMA GRUBER N Ot D50.9 IRON DEFICIENCY ANEMIA, UNSPECIFIED 01/07/2019 GARIMA GRUBER Uriel Ot D69.6 THROMBOCYTOPENIA, UNSPECIFIED 01/07/2019 GARIMA GRUBER N Ot I25.10 ATHSCL HEART DISEASE OF [place] CORONARY 01/07/2019 GARIMA GRUBER N Ot N18.3 CHRONIC KIDNEY DISEASE, STAGE 3 (MODERAT 01/07/2019 GARIMA GRUBER N Ot Z79.899 OTHER [facility] (CURRENT) DRUG THERAPY 01/12/2019 BINH LEGGETT DOA Nahum Ot M79.605 PAIN IN LEFT LEG 01/14/2019 BETSEY MARIO DAVID K Ot S80.12X A CONTUSION OF LEFT LOWER LEG, INITIAL ENC 01/18/2019 BETSEY DO DAVID K Ot S80.12X A CONTUSION OF LEFT LOWER LEG, INITIAL ENC 01/20/2019 BETSEY DO DAVID Nahum Ot E78.00 PURE HYPERCHOLESTEROLEMIA, UNSPECIFIED 01/20/2019 BETSEY DO DAVID K Ot I12.9 HYPERTENSIVE CHRONIC KIDNEY DISEASE W ST 01/20/2019 BETSEY DO DAVID K Ot I25.10 ATHSCL HEART DISEASE OF [place] CORONARY 01/20/2019 BINH LEGGETT DOA K Ot I48.91 UNSPECIFIED ATRIAL FIBRILLATION 01/20/2019 BETSEY DO DAVID K Ot M79.89 OTHER SPECIFIED SOFT TISSUE DISORDERS 01/20/2019 BETSEY DO DAVID K Ot N18.9 CHRONIC KIDNEY DISEASE, UNSPECIFIED 01/20/2019 BETSEY DO DAVID K Ot S80.12X A CONTUSION OF LEFT LOWER LEG, INITIAL ENC 01/20/2019 BINH LEGGETT DOA K Ot X58.XXX A EXPOSURE TO OTHER SPECIFIED FACTORS, INI 01/20/2019 DAVID LEGGETT DO Ot Z79.02 [facility] (CURRENT) USE OF ANTITHROMBOTI 01/20/2019 DAVID LEGGETT DO Ot Z79.52 BROOM BUNDLER (CURRENT) USE OF SYSTEMIC STER 01/20/2019 DAVID LEGGETT DO Ot Z79.82 BROOM BUNDLER (CURRENT) USE OF ASPIRIN 01/20/2019 DAVID LEGGETT DO Ot Z80.1 FAMILY HISTORY OF MALIG NEOPLASM OF TRAC 01/20/2019 DAVID LEGGETT DO Ot Z80.3 FAMILY HISTORY OF MALIGNANT NEOPLASM OF 01/20/2019 DAVID LEGGETT DO Ot Z90.49 ACQUIRED ABSENCE OF OTHER SPECIFIED PART 01/20/2019 DAVID LEGGETT DO Ot Z95.5 PRESENCE OF CORONARY ANGIOPLASTY IMPLANT 01/20/2019 DAVID LEGGETT DO Ot Z95.810 PRESENCE OF AUTOMATIC (IMPLANTABLE) CARD 01/26/2019 DAVID LEGGETT DO Ot S80.12X A CONTUSION OF LEFT LOWER LEG, INITIAL ENC Procedures There is no data. Results Test Result Range Lipid 1996 panel - 11/21/15 09:31 Serum or plasma triglyceride measurement (mass/volume) 221 mg/dL <150 Serum or plasma cholesterol measurement (mass/volume) 133 mg/dL < 200 Serum or plasma cholesterol in HDL measurement (mass/v olume) 31 mg/dL 40-60 Cholesterol in LDL [mass/volume] in serum or plasma by direct assay 70 mg/dL 1-129 Serum or plasma cholesterol in VLDL measurement (mass/ volume) 44 mg/dL 5-40 Hemoglobin A1c - 11/21/15 09:31 Hemoglobin A1c 4.6 % 4.5-6.2 Complete blood count (CBC) with automate d white blood cell (WBC) differential - 02/07/16 09:30 Blood leukocytes automated count (number/volume) 8.3 10*3/uL 4.3-11.0 Blood erythrocytes automated count (number/volume) 5.05 10*6/uL 4.35-5.85 Venous blood hemoglobin measurement (mass/volume) 13.9 g/dL 13.3-17.7 Blood hematocrit (volume fraction) 40 % 40-54 Automated erythrocyte mean corpuscular volume 79 [ foz_us] 80-99 Automated erythrocyte mean corpuscular h emoglobin (mass per erythrocyte) 28 pg 25-34 Automated erythrocyte mean corpuscular h emoglobin concentration measurement (mass/volume) 35 g/dL 32-36 Automated erythrocyte distribution width ratio 13. 9 % 10.0- 14.5 Automated blood platelet count (count/volume) 127 10*3/uL 130-400 Automated blood platelet mean volume measurement 9.2 [foz_us] 7.4-10.4 Automated blood neutrophils/100 leukocytes 71 % 42-75 Automated blood lymphocytes/100 leukocytes 17 % 12-44 Blood monocytes/100 leukocytes 10 % 0-12 Automated blood eosinophils/100 leukocytes 2 % 0-10 Automated blood basophils/100 leukocytes 1 % 0-10 Blood neutrophils automated count (number/volume) 5.9 10*3 1.8-7.8 Blood lymphocytes automated count (number/volume) 1.4 10*3 1.0-4.0 Blood monocytes automated count (number/volume) 0. 9 10*3 0.0-1.0 Automated eosinophil count 0.2 10*3/uL 0 .0-0.3 Automated blood basophil count (count/volume) 0.0 10*3/uL 0.0-0.1 PT panel in platelet poor plasma by coag ulation assay - 02/07/16 09:30 Prothrombin time (PT) in platelet poor plasma by coagu lation assay 18.0 s 12.2-14.7 INR in platelet poor plasma or blood by coagulation as say 1.5 0.8-1.4 Activated partial thromboplastin time (a PTT) in platelet poor plasma bycoagulation assay - 02/07/16 09:30 Activated partial thromboplastin time (a PTT) in platelet poor plasma bycoagulation assay 44 s 24-35 Fibrin D-dimer FEU measurement in platel et poor plasma (mass/volume) - 02/07/16 09:30 Fibrin D-dimer FEU measurement in platelet poor plasma (mass/volume) 1.01 ug/mL 0.00-0.49 Comprehensive metabolic panel - 02/07/16 09:30 Serum or plasma sodium measurement (moles/volume) 136 mmol/L 135-145 Serum or plasma potassium measurement (moles/volume) 4.4 mmol/L 3.6-5.0 Serum or plasma chloride measurement (moles/volume) 106 mmol/L 98-107 Carbon dioxide 21 mmol/L 21-32 Serum or plasma anion gap determination (moles/volume) 9 mmol/L 5-14 Serum or plasma urea nitrogen measurement (mass/volume ) 23 mg/dL 7-18 Serum or plasma creatinine measurement (mass/volume) 1.36 mg/dL 0.60-1.30 Serum or plasma urea nitrogen/creatinine mass ratio 17 NRG Serum or plasma creatinine measurement w ith calculation of estimated glomerular filtration rate 51 NRG Serum or plasma glucose measurement (mass/volume) 112 mg/dL 70-105 Serum or plasma calcium measurement (mass/volume) 9.0 mg/dL 8.5-10.1 Serum or plasma total bilirubin measurement (mass/volu me) 0.9 mg/dL 0.1-1.0 Serum or plasma alkaline phosphatase dayana surement (enzymatic activity/volume) 89 U/L 40-136 Serum or plasma aspartate aminotransfera se measurement (enzymatic activity/volume) 21 U/L 5-34 Serum or plasma alanine aminotransferase measurement (enzymatic activity/volume) 17 U/L 0-55 Serum or plasma protein measurement (mass/volume) 6.7 g/dL 6.4-8.2 Serum or plasma albumin measurement (mass/volume) 3.8 g/dL 3.2-4.5 Magnesium - 02/07/16 09:30 Magnesium 2.0 mg/dL 1.8-2.4 Serum or plasma troponin i.cardiac measu rement (mass/volume) - 02/07/16 09:30 Serum or plasma troponin i.cardiac measurement (mass/v olume) < ng/mL <0.30 Serum or plasma lithium measurement (mol es/volume) - 02/07/16 09:30 BNP level 145.0 pg/mL <100.0 Complete blood count (CBC) with automate d white blood cell (WBC) differential - 03/28/16 18:35 Blood leukocytes automated count (number/volume) 8.8 10*3/uL 4.3-11.0 Blood erythrocytes automated count (number/volume) 5.37 10*6/uL 4.35-5.85 Venous blood hemoglobin measurement (mass/volume) 14.8 g/dL 13.3-17.7 Blood hematocrit (volume fraction) 43 % 40-54 Automated erythrocyte mean corpuscular volume 80 [ foz_us] 80-99 Automated erythrocyte mean corpuscular h emoglobin (mass per erythrocyte) 28 pg 25-34 Automated erythrocyte mean corpuscular h emoglobin concentration measurement (mass/volume) 35 g/dL 32-36 Automated erythrocyte distribution width ratio 14. 6 % 10.0- 14.5 Automated blood platelet count (count/volume) 127 10*3/uL 130-400 Automated blood platelet mean volume measurement 10.8 [foz_us] 7.4-10.4 Automated blood neutrophils/100 leukocytes 68 % 42-75 Automated blood lymphocytes/100 leukocytes 21 % 12-44 Blood monocytes/100 leukocytes 9 % 0-12 Automated blood eosinophils/100 leukocytes 1 % 0-10 Automated blood basophils/100 leukocytes 1 % 0-10 Blood neutrophils automated count (number/volume) 6.0 10*3 1.8-7.8 Blood lymphocytes automated count (number/volume) 1.9 10*3 1.0-4.0 Blood monocytes automated count (number/volume) 0. 8 10*3 0.0-1.0 Automated eosinophil count 0.1 10*3/uL 0 .0-0.3 Automated blood basophil count (count/volume) 0.1 10*3/uL 0.0-0.1 PT panel in platelet poor plasma by coag ulation assay - 03/28/16 18:35 Prothrombin time (PT) in platelet poor plasma by coagu lation assay 13.6 s 12.2-14.7 INR in platelet poor plasma or blood by coagulation as say 1.1 0.8-1.4 Activated partial thromboplastin time (a PTT) in platelet poor plasma bycoagulation assay - 03/28/16 18:35 Activated partial thromboplastin time (a PTT) in platelet poor plasma bycoagulation assay 33 s 24-35 Comprehensive metabolic panel - 03/28/16 18:35 Serum or plasma sodium measurement (moles/volume) 138 mmol/L 135-145 Serum or plasma potassium measurement (moles/volume) 4.2 mmol/L 3.6-5.0 Serum or plasma chloride measurement (moles/volume) 108 mmol/L 98-107 Carbon dioxide 19 mmol/L 21-32 Serum or plasma anion gap determination (moles/volume) 11 mmol/L 5-14 Serum or plasma urea nitrogen measurement (mass/volume ) 20 mg/dL 7-18 Serum or plasma creatinine measurement (mass/volume) 1.55 mg/dL 0.60-1.30 Serum or plasma urea nitrogen/creatinine mass ratio 13 NRG Serum or plasma creatinine measurement w ith calculation of estimated glomerular filtration rate 44 NRG Serum or plasma glucose measurement (mass/volume) 114 mg/dL 70-105 Serum or plasma calcium measurement (mass/volume) 8.7 mg/dL 8.5-10.1 Serum or plasma total bilirubin measurement (mass/volu me) 0.8 mg/dL 0.1-1.0 Serum or plasma alkaline phosphatase dayana surement (enzymatic activity/volume) 110 U/L 40-136 Serum or plasma aspartate aminotransfera se measurement (enzymatic activity/volume) 23 U/L 5-34 Serum or plasma alanine aminotransferase measurement (enzymatic activity/volume) 21 U/L 0-55 Serum or plasma protein measurement (mass/volume) 7.1 g/dL 6.4-8.2 Serum or plasma albumin measurement (mass/volume) 4.1 g/dL 3.2-4.5 Magnesium - 03/28/16 18:35 Magnesium 2.2 mg/dL 1.8-2.4 Serum or plasma creatine kinase measurem ent (enzymatic activity/volume) - 03/28/16 18:35 Serum or plasma creatine kinase measurem ent (enzymatic activity/volume) 88 U/L 30-200 Serum or plasma lithium measurement (mol es/volume) - 03/28/16 18:35 BNP level 510.2 pg/mL <100.0 Serum or plasma creatine kinase MB measu rement (enzymatic activity/volume) - 03/28/16 18:35 Serum or plasma creatine kinase MB measu rement (enzymatic activity/volume) 2.1 ng/mL <6.6 Serum or plasma troponin i.cardiac measu rement (mass/volume) - 03/28/16 18:35 Serum or plasma troponin i.cardiac measurement (mass/v olume) < ng/mL <0.30 Serum or plasma thyrotropin measurement by detection limit <=0.05 miu/l (units/volume) - 03/28/16 18:35 Serum or plasma thyrotropin measurement by detection limit <=0.05 miu/l (units/volume) 3.85 u[iU]/mL 0.35-4.94 Complete blood count (CBC) with automate d white blood cell (WBC) differential - 03/31/16 19:40 Blood leukocytes automated count (number/volume) 8.8 10*3/uL 4.3-11.0 Blood erythrocytes automated count (number/volume) 5.26 10*6/uL 4.35-5.85 Venous blood hemoglobin measurement (mass/volume) 14.4 g/dL 13.3-17.7 Blood hematocrit (volume fraction) 41 % 40-54 Automated erythrocyte mean corpuscular volume 78 [ foz_us] 80-99 Automated erythrocyte mean corpuscular h emoglobin (mass per erythrocyte) 27 pg 25-34 Automated erythrocyte mean corpuscular h emoglobin concentration measurement (mass/volume) 35 g/dL 32-36 Automated erythrocyte distribution width ratio 14. 5 % 10.0- 14.5 Automated blood platelet count (count/volume) 136 10*3/uL 130-400 Automated blood platelet mean volume measurement 9.2 [foz_us] 7.4-10.4 Automated blood neutrophils/100 leukocytes 68 % 42-75 Automated blood lymphocytes/100 leukocytes 17 % 12-44 Blood monocytes/100 leukocytes 14 % 0-12 Automated blood eosinophils/100 leukocytes 2 % 0-10 Automated blood basophils/100 leukocytes 1 % 0-10 Blood neutrophils automated count (number/volume) 6.0 10*3 1.8-7.8 Blood lymphocytes automated count (number/volume) 1.5 10*3 1.0-4.0 Blood monocytes automated count (number/volume) 1. 2 10*3 0.0-1.0 Automated eosinophil count 0.1 10*3/uL 0 .0-0.3 Automated blood basophil count (count/volume) 0.0 10*3/uL 0.0-0.1 PT panel in platelet poor plasma by coag ulation assay - 03/31/16 19:40 Prothrombin time (PT) in platelet poor plasma by coagu lation assay 15.0 s 12.2-14.7 INR in platelet poor plasma or blood by coagulation as say 1.2 0.8-1.4 Activated partial thromboplastin time (a PTT) in platelet poor plasma bycoagulation assay - 03/31/16 19:40 Activated partial thromboplastin time (a PTT) in platelet poor plasma bycoagulation assay 38 s 24-35 Serum or plasma C reactive protein measu rement (mass/volume) - 03/31/16 19:40 Serum or plasma C reactive protein measurement (mass/v olume) 4.90 mg/dL 0.00-0.50 Blood lactic acid measurement (moles/vol ume) - 03/31/16 19:40 Blood lactic acid measurement (moles/volume) 1.9 m mol/L 0.5- 2.0 Comprehensive metabolic panel - 03/31/16 19:40 Serum or plasma sodium measurement (moles/volume) 136 mmol/L 135-145 Serum or plasma potassium measurement (moles/volume) 4.0 mmol/L 3.6-5.0 Serum or plasma chloride measurement (moles/volume) 106 mmol/L 98-107 Carbon dioxide 20 mmol/L 21-32 Serum or plasma anion gap determination (moles/volume) 10 mmol/L 5-14 Serum or plasma urea nitrogen measurement (mass/volume ) 23 mg/dL 7-18 Serum or plasma creatinine measurement (mass/volume) 1.36 mg/dL 0.60-1.30 Serum or plasma urea nitrogen/creatinine mass ratio 17 NRG Serum or plasma creatinine measurement w ith calculation of estimated glomerular filtration rate 51 NRG Serum or plasma glucose measurement (mass/volume) 119 mg/dL 70-105 Serum or plasma calcium measurement (mass/volume) 8.6 mg/dL 8.5-10.1 Serum or plasma total bilirubin measurement (mass/volu me) 1.3 mg/dL 0.1-1.0 Serum or plasma alkaline phosphatase dayana surement (enzymatic activity/volume) 108 U/L 40-136 Serum or plasma aspartate aminotransfera se measurement (enzymatic activity/volume) 16 U/L 5-34 Serum or plasma alanine aminotransferase measurement (enzymatic activity/volume) 14 U/L 0-55 Serum or plasma protein measurement (mass/volume) 6.7 g/dL 6.4-8.2 Serum or plasma albumin measurement (mass/volume) 3.9 g/dL 3.2-4.5 Magnesium - 03/31/16 19:40 Magnesium 2.1 mg/dL 1.8-2.4 Serum or plasma troponin i.cardiac measu rement (mass/volume) - 03/31/16 19:40 Serum or plasma troponin i.cardiac measurement (mass/v olume) < ng/mL <0.30 Myoglobin, serum - 03/31/16 19:40 Myoglobin, serum 80.3 ng/mL 10.0-92.0 Blood CBC with ordered manual differenti al panel - 12/25/16 11:40 Blood leukocytes automated count (number/volume) 6.1 10*3/uL 4.3-11.0 Blood erythrocytes automated count (number/volume) 4.64 10*6/uL 4.35-5.85 Venous blood hemoglobin measurement (mass/volume) 13.3 g/dL 13.3-17.7 Blood hematocrit (volume fraction) 39 % 40-54 Automated erythrocyte mean corpuscular volume 85 [ foz_us] 80-99 Automated erythrocyte mean corpuscular h emoglobin (mass per erythrocyte) 29 pg 25-34 Automated erythrocyte mean corpuscular h emoglobin concentration measurement (mass/volume) 34 g/dL 32-36 Automated erythrocyte distribution width ratio 13. 9 % 10.0- 14.5 Automated blood platelet count (count/volume) 133 10*3/uL 130-400 Automated blood platelet mean volume measurement 8.9 [foz_us] 7.4-10.4 Automated blood neutrophils/100 leukocytes 66 % 42-75 Automated blood lymphocytes/100 leukocytes 22 % 12-44 Blood monocytes/100 leukocytes 7 % NRG Automated blood eosinophils/100 leukocytes 1 % 0-10 Automated blood basophils/100 leukocytes 1 % 0-10 Blood neutrophils automated count (number/volume) 4.0 10*3 1.8-7.8 Blood lymphocytes automated count (number/volume) 1.3 10*3 1.0-4.0 Blood monocytes automated count (number/volume) 0. 6 10*3 0.0-1.0 Automated eosinophil count 0.1 10*3/uL 0 .0-0.3 Automated blood basophil count (count/volume) 0.0 10*3/uL 0.0-0.1 Manual blood segmented neutrophils/100 leukocytes 61 % NRG Manual blood lymphocytes/100 leukocytes 28 % NRG Manual eosinophils/100 leukocytes in nose 3 % NRG Manual blood basophils/100 leukocytes 1 % NRG Blood polychromasia detection by light microscopy SLIGHT NRG Automated reticulocyte percentage - 12/12 05/28 11:40 Blood reticulocytes count (number/volume) 98 10*9/ L 24-90 Blood reticulocytes/100 erythrocytes 2.12 % 0.50-2.40 Serum or plasma ferritin measurement (ma ss/volume) - 12/25/16 11:40 Serum or plasma ferritin measurement (mass/volume) 84.0 % 25.0-300.0 Complete blood count (CBC) with automate d white blood cell (WBC) differential - 08/20/18 08:32 Blood leukocytes automated count (number/volume) 7.2 10*3/uL 4.3-11.0 Blood erythrocytes automated count (number/volume) 4.99 10*6/uL 4.35-5.85 Venous blood hemoglobin measurement (mass/volume) 13.8 g/dL 13.3-17.7 Blood hematocrit (volume fraction) 41 % 40-54 Automated erythrocyte mean corpuscular volume 82 [ foz_us] 80-99 Automated erythrocyte mean corpuscular h emoglobin (mass per erythrocyte) 28 pg 25-34 Automated erythrocyte mean corpuscular h emoglobin concentration measurement (mass/volume) 34 g/dL 32-36 Automated erythrocyte distribution width ratio 14. 5 % 10.0- 14.5 Automated blood platelet count (count/volume) 122 10*3/uL 130-400 Automated blood platelet mean volume measurement 8.7 [foz_us] 7.4-10.4 Automated blood neutrophils/100 leukocytes 73 % 42-75 Automated blood lymphocytes/100 leukocytes 16 % 12-44 Blood monocytes/100 leukocytes 9 % 0-12 Automated blood eosinophils/100 leukocytes 1 % 0-10 Automated blood basophils/100 leukocytes 0 % 0-10 Blood neutrophils automated count (number/volume) 5.2 10*3 1.8-7.8 Blood lymphocytes automated count (number/volume) 1.2 10*3 1.0-4.0 Blood monocytes automated count (number/volume) 0. 7 10*3 0.0-1.0 Automated eosinophil count 0.1 10*3/uL 0 .0-0.3 Automated blood basophil count (count/volume) 0.0 10*3/uL 0.0-0.1 Comprehensive metabolic panel - 08/20/18 08:32 Serum or plasma sodium measurement (moles/volume) 140 mmol/L 135-145 Serum or plasma potassium measurement (moles/volume) 4.1 mmol/L 3.6-5.0 Serum or plasma chloride measurement (moles/volume) 108 mmol/L 98-107 Carbon dioxide 22 mmol/L 21-32 Serum or plasma anion gap determination (moles/volume) 10 mmol/L 5-14 Serum or plasma urea nitrogen measurement (mass/volume ) 17 mg/dL 7-18 Serum or plasma creatinine measurement (mass/volume) 1.41 mg/dL 0.60-1.30 Serum or plasma urea nitrogen/creatinine mass ratio 12 NRG Serum or plasma creatinine measurement w ith calculation of estimated glomerular filtration rate 49 NRG Serum or plasma glucose measurement (mass/volume) 98 mg/dL 70-105 Serum or plasma calcium measurement (mass/volume) 8.8 mg/dL 8.5-10.1 Serum or plasma total bilirubin measurement (mass/volu me) 0.9 mg/dL 0.1-1.0 Serum or plasma alkaline phosphatase dayana surement (enzymatic activity/volume) 114 U/L 40-136 Serum or plasma aspartate aminotransfera se measurement (enzymatic activity/volume) 21 U/L 5-34 Serum or plasma alanine aminotransferase measurement (enzymatic activity/volume) 26 U/L 0-55 Serum or plasma protein measurement (mass/volume) 6.8 g/dL 6.4-8.2 Serum or plasma albumin measurement (mass/volume) 4.1 g/dL 3.2-4.5 CALCIUM CORRECTED 8.7 mg/dL 8.5-10.1 Serum or plasma ferritin measurement (ma ss/volume) - 08/20/18 08:32 Serum or plasma ferritin measurement (mass/volume) 83.8 % 32.0-356.0 Complete blood count (CBC) with automate d white blood cell (WBC) differential - 01/11/19 09:04 Blood leukocytes automated count (number/volume) 7.4 10*3/uL 4.3-11.0 Blood erythrocytes automated count (number/volume) 5.10 10*6/uL 4.35-5.85 Venous blood hemoglobin measurement (mass/volume) 14.6 g/dL 13.3-17.7 Blood hematocrit (volume fraction) 42 % 40-54 Automated erythrocyte mean corpuscular volume 83 [ foz_us] 80-99 Automated erythrocyte mean corpuscular h emoglobin (mass per erythrocyte) 29 pg 25-34 Automated erythrocyte mean corpuscular h emoglobin concentration measurement (mass/volume) 34 g/dL 32-36 Automated erythrocyte distribution width ratio 16. 1 % 10.0- 14.5 Automated blood platelet count (count/volume) 96 1 0*3/uL 130-400 Automated blood platelet mean volume measurement 9.4 [foz_us] 7.4-10.4 Automated blood neutrophils/100 leukocytes 73 % 42-75 Automated blood lymphocytes/100 leukocytes 16 % 12-44 Blood monocytes/100 leukocytes 10 % 0-12 Automated blood eosinophils/100 leukocytes 1 % 0-10 Automated blood basophils/100 leukocytes 0 % 0-10 Blood neutrophils automated count (number/volume) 5.3 10*3 1.8-7.8 Blood lymphocytes automated count (number/volume) 1.2 10*3 1.0-4.0 Blood monocytes automated count (number/volume) 0. 7 10*3 0.0-1.0 Automated eosinophil count 0.1 10*3/uL 0 .0-0.3 Automated blood basophil count (count/volume) 0.0 10*3/uL 0.0-0.1 PT panel in platelet poor plasma by coag ulation assay - 01/11/19 09:04 Prothrombin time (PT) in platelet poor plasma by coagu lation assay 14.6 s 12.2-14.7 INR in platelet poor plasma or blood by coagulation as say 1.1 0.8-1.4 Activated partial thromboplastin time (a PTT) in platelet poor plasma bycoagulation assay - 01/11/19 09:04 Activated partial thromboplastin time (a PTT) in platelet poor plasma bycoagulation assay 35 s 24-35 Comprehensive metabolic panel - 01/11/19 09:04 Serum or plasma sodium measurement (moles/volume) 140 mmol/L 135-145 Serum or plasma potassium measurement (moles/volume) 4.1 mmol/L 3.6-5.0 Serum or plasma chloride measurement (moles/volume) 109 mmol/L 98-107 Carbon dioxide 21 mmol/L 21-32 Serum or plasma anion gap determination (moles/volume) 10 mmol/L 5-14 Serum or plasma urea nitrogen measurement (mass/volume ) 23 mg/dL 7-18 Serum or plasma creatinine measurement (mass/volume) 1.32 mg/dL 0.60-1.30 Serum or plasma urea nitrogen/creatinine mass ratio 17 NRG Serum or plasma creatinine measurement w ith calculation of estimated glomerular filtration rate 53 NRG Serum or plasma glucose measurement (mass/volume) 97 mg/dL 70-105 Serum or plasma calcium measurement (mass/volume) 8.6 mg/dL 8.5-10.1 Serum or plasma total bilirubin measurement (mass/volu me) 1.4 mg/dL 0.1-1.0 Serum or plasma alkaline phosphatase dayana surement (enzymatic activity/volume) 102 U/L 40-136 Serum or plasma aspartate aminotransfera se measurement (enzymatic activity/volume) 23 U/L 5-34 Serum or plasma alanine aminotransferase measurement (enzymatic activity/volume) 26 U/L 0-55 Serum or plasma protein measurement (mass/volume) 6.8 g/dL 6.4-8.2 Serum or plasma albumin measurement (mass/volume) 4.3 g/dL 3.2-4.5 CALCIUM CORRECTED 8.4 mg/dL 8.5-10.1 Magnesium - 01/11/19 09:04 Magnesium 2.0 mg/dL 1.6-2.4 Serum or plasma troponin i.cardiac measu rement (mass/volume) - 01/11/19 09:04 Serum or plasma troponin i.cardiac measurement (mass/v olume) < ng/mL <0.028 Serum or plasma lithium measurement (mol es/volume) - 01/11/19 09:04 BNP PT 235.9 pg/mL <100.0 Influenza virus A and B antigen detectio n - 01/11/19 09:41 FLU RESULT NEGATIVE FOR INFLUENZA A AND B ANTIGENS BY IA NRG Encounters ACCT No. Visit Date/Time Discharge Status Pt. Type Provider Facility Loc./Unit Complaint [id number] 01/12/2019 14:55:00 23:59:59 CLS Outpatient DAVID LEGGETT DO, V [facility] RAD VERIFY!!!! ER PATIENT [id number] 01/11/2019 08:10:00 11:00:00 DIS Outpatient DAVID LEGGETT DO, V [facility] ER L LEG SWELLING [id number] 11/27/2018 08:22:00 23:59:59 CLS Outpatient GARIMA GRUBER V [facility] ONC [id number] 11/17/2018 08:20:00 019 00:01:00 DIS Outpatient GARIMA GRUBER [facility] ONC [id number] 05/14/2018 09:55:00 019 00:01:00 DIS Outpatient GARIMA GRUBER [facility] ONC [id number] 02/25/2018 15:20:00 019 00:01:00 DIS Outpatient GARIMA GRUBER [facility] ONC [id number] 10/08/2017 10:49:00 018 00:01:00 DIS Outpatient GARIMA GRUBER [facility] ONC [id number] 08/20/2017 18:38:00 018 20:20:00 DIS Emergency ROMANA FARMER, KAYLEIGH Clark [facility] ER HIP/GROIN PAIN L SIDE [id number] 05/28/2017 09:15:00 018 00:01:00 DIS Outpatient GARIMA GRUBER [facility] ONC [id number] 03/20/2017 08:17:00 018 00:01:00 DIS Outpatient GARIMA GRUBER [facility] ONC [id number] 08/22/2016 09:36:00 017 00:01:00 DIS Outpatient DEBRA FARMER, DAPHNE Tamez [facility] ONC [id number] 07/02/2016 09:12:00 017 00:01:00 DIS Outpatient DEBRA FARMER, DAPHNE Tamez [facility] ONC [id number] 03/31/2016 19:26:00 017 21:50:00 DIS Emergency TIFFANIE FARMER, LEANN Witt [facility] ER CHEST PAIN [id number] 03/28/2016 18:15:00 017 20:00:00 DIS Emergency DAVID LEGGETT DO a [facility] ER DEFIBULATOR WENT OFF [id number] 11/28/2015 13:05:00 017 00:01:00 DIS Outpatient DAPHNE RICHARDSON MD [facility] ONC [id number] 02/09/2016 13:21:00 23:59:59 CLS Outpatient TAMIKA GAUTHIER PA-C [facility] CARD S/P BIV ICD LOO SE ATRIAL LEAD [id number] 02/07/2016 08:57:00 13:04:00 DIS Emergency LAURY CARRERO MD [facility] ER CHEST/BACK PAIN SOA [id number] 11/29/2015 12:16:00 23:59:59 CLS Outpatient BECK VILLANUEVA APRN [facility] RAD RT SHOULDER PAIN [id number] 11/21/2015 09:12:00 23:59:59 CLS Outpatient TAMIKA GAUTHIER PA-C [facility] LAB [id number] 05/31/2015 09:33:00 016 00:01:00 DIS Outpatient DAPHNE RICHARDSON MD [facility] ONC [id number] 02/28/2015 14:44:00 016 00:01:00 DIS Outpatient DAPHNE RICHARDSON MD [facility] ONC [id number] 11/18/2014 11:28:00 016 00:01:00 DIS Outpatient DAPHNE RICHARDSON MD [facility] ONC [id number] 11/10/2014 09:17:00 015 00:01:00 DIS Outpatient DAPHNE RICHARDSON MD [facility] ONC [id number] 09/09/2014 09:55:00 015 23:59:59 CLS Outpatient RHONDA NEGRON MD [facility] LAB [id number] 06/16/2014 09:29:00 00:01:00 DIS Outpatient DAPHNE RICHARDSON MD [facility] ONC [id number] 02/25/2014 10:53:00 015 15:33:00 DIS Emergency JENNIFER FARMER, CALEB Sidhu [facility] ER SOA/DIZZY [id number] 02/18/2014 11:59:00 015 23:59:59 CLS Outpatient RAUDEL FARMER, SHEYLA Lambert [facility] RAD F/U PNEUMONIA,S OB [id number] 01/04/2014 11:46:00 014 23:59:59 CLS Outpatient DILLON FARMER, MARIS García [facility] RAD COUGH [id number] 09/30/2013 07:12:00 014 23:59:59 CLS Outpatient BRETT ALEXANDRA [facility] RT SOA,CP,HTN [id number] 01/07/2012 00:20:00 Document Registration [id number] 12/30/2009 20:36:00 Document Registration [id number] 10/24/2009 10:14:00 Document Registration [id number] 05/03/2009 16:57:00 Document Registration
== END 2019-01-11 11:00 | disposition home or self-care (01) ==
LOC: EDUNIT# 08:09 → ER 08:10
DX: S80.12XA Contusion of left lower leg, initial encounter (principal); I12.9 Hypertensive chronic kidney disease with stage 1 through stage 4 chronic kidney disease, or unspecified chronic kidney disease; N18.9 Chronic kidney disease, unspecified; E78.00 Pure hypercholesterolemia, unspecified; I25.10 Atherosclerotic heart disease of native coronary artery without angina pectoris; I48.91 Unspecified atrial fibrillation; Z95.810 Presence of automatic (implantable) cardiac defibrillator; Z95.5 Presence of coronary angioplasty implant and graft; Z79.82 Long term (current) use of aspirin; Z79.02 Long term (current) use of antithrombotics/antiplatelets; Z79.52 Long term (current) use of systemic steroids; Z90.49 Acquired absence of other specified parts of digestive tract; Z80.1 Family history of malignant neoplasm of trachea, bronchus and lung; Z80.3 Family history of malignant neoplasm of breast; X58.XXXA Exposure to other specified factors, initial encounter
CPT/HCPCS: 36415; 71046; 73590; 73630; 80053; 83735; 83880; 84484; 85025; 85610; 85730; 87804; 93005; 93041

== ENCOUNTER → 2019-01-12 | Outpatient (CLI) | payer MEDICARE ==
--- NOTE | 2019-01-12 17:22 | Diagnostic Imaging Report ---
PROCEDURE: US left lower extremity venous. TECHNIQUE: Multiple real-time grayscale images were obtained over the left lower extremity in various projections. Additional duplex Doppler and color Doppler images were also obtained. INDICATION: Pain and swelling to the left lower extremity. FINDINGS: There is no evidence of left lower extremity DVT. Left lower extremity deep venous system shows normal compressibility with normal response to augmentation and Valsalva. There is a complex fluid collection in the anterior schneider region at the area of lump measuring 3.1 x 0.7 x 2.7 cm. No internal vascularity is seen. This most likely represents a hematoma. IMPRESSION: 1. No evidence of left lower extremity DVT. 2. Left lower extremity hematoma. Dictated by: Dictated on workstation # [id number]
== END ==
LOC: RAD 14:55
PROVIDERS: ATTEND Emergency Medicine
DX: S80.12XA Contusion of left lower leg, initial encounter (principal)

== ENCOUNTER 2019-03-04 11:02 | Outpatient (RCR) | payer MEDICARE ==
[2019-03-02 10:43] LABS: BASOPHILS % (AUTO) 1 % (0-10); EOSINOPHILS # (AUTO) 0.1 10^3/uL (0.0-0.3); EOSINOPHILS % (AUTO) 1 % (0-10); HEMATOCRIT 44 % (40-54); HEMOGLOBIN 15.1 G/DL (13.3-17.7); LYMPHOCYTES # (AUTO) 1.3 X 10^3 (1.0-4.0); LYMPHOCYTES % (AUTO) 19 % (12-44); MEAN CORPUSCULAR HEMOGLOBIN 29 PG (25-34); MEAN CORPUSCULAR HGB CONC 34 G/DL (32-36); MEAN CORPUSCULAR VOLUME 84 FL (80-99); MEAN PLATELET VOLUME 9.2 FL (7.4-10.4); MONOCYTES # (AUTO) 0.6 X 10^3 (0.0-1.0); MONOCYTES % (AUTO) 9 % (0-12); NEUTROPHILS % (AUTO) 71 % (42-75); PLATELET COUNT 106 10^3/uL (130-400); RED CELL DISTRIBUTION WIDTH 14.3 % (10.0-14.5)
[2019-03-02 11:10] LABS: ALBUMIN 4.3 GM/DL (3.2-4.5); CALCIUM 8.6 MG/DL (8.5-10.1); CREATININE SERUM 1.35 MG/DL (0.60-1.30); POTASSIUM 4.3 MMOL/L (3.6-5.0)
== END 2019-05-31 | disposition home or self-care (01) ==
LOC: ONC 11:02
PROVIDERS: ATTEND Internal Medicine Hematology & Oncology
DX: D50.9 Iron deficiency anemia, unspecified (principal); I25.10 Atherosclerotic heart disease of native coronary artery without angina pectoris; N18.3 Chronic kidney disease, stage 3 (moderate); D69.6 Thrombocytopenia, unspecified; Z79.899 Other long term (current) drug therapy
CPT/HCPCS: 80053; 82728; 85025; 99213

== ENCOUNTER 2019-08-31 07:59 | Outpatient (RCR) | payer MEDICARE ==
[2019-06-03 08:43] LABS: BASOPHILS % (AUTO) 0 % (0-10); EOSINOPHILS # (AUTO) 0.1 10^3/uL (0.0-0.3); EOSINOPHILS % (AUTO) 1 % (0-10); HEMATOCRIT 43 % (40-54); HEMOGLOBIN 14.5 G/DL (13.3-17.7); LYMPHOCYTES # (AUTO) 1.5 X 10^3 (1.0-4.0); LYMPHOCYTES % (AUTO) 20 % (12-44); MEAN CORPUSCULAR HEMOGLOBIN 29 PG (25-34); MEAN CORPUSCULAR HGB CONC 34 G/DL (32-36); MEAN CORPUSCULAR VOLUME 86 FL (80-99); MEAN PLATELET VOLUME 9.1 FL (7.4-10.4); MONOCYTES # (AUTO) 0.7 X 10^3 (0.0-1.0); MONOCYTES % (AUTO) 10 % (0-12); NEUTROPHILS # (AUTO) 5.1 X 10^3 (1.8-7.8); NEUTROPHILS % (AUTO) 69 % (42-75); PLATELET COUNT 114 10^3/uL (130-400); RED CELL DISTRIBUTION WIDTH 14.3 % (10.0-14.5); WHITE BLOOD COUNT 7.4 10^3/uL (4.3-11.0)
[2019-08-31 08:23] LABS: BASOPHILS % (AUTO) 1 % (0-10); EOSINOPHILS # (AUTO) 0.1 10^3/uL (0.0-0.3); EOSINOPHILS % (AUTO) 1 % (0-10); HEMATOCRIT 43 % (40-54); HEMOGLOBIN 14.6 G/DL (13.3-17.7); LYMPHOCYTES # (AUTO) 1.3 X 10^3 (1.0-4.0); LYMPHOCYTES % (AUTO) 17 % (12-44); MEAN CORPUSCULAR HEMOGLOBIN 29 PG (25-34); MEAN CORPUSCULAR HGB CONC 34 G/DL (32-36); MEAN CORPUSCULAR VOLUME 84 FL (80-99); MEAN PLATELET VOLUME 9.1 FL (7.4-10.4); MONOCYTES # (AUTO) 0.8 X 10^3 (0.0-1.0); MONOCYTES % (AUTO) 10 % (0-12); NEUTROPHILS # (AUTO) 5.5 X 10^3 (1.8-7.8); NEUTROPHILS % (AUTO) 71 % (42-75); PLATELET COUNT 121 10^3/uL (130-400); RED CELL DISTRIBUTION WIDTH 13.9 % (10.0-14.5); WHITE BLOOD COUNT 7.8 10^3/uL (4.3-11.0)
[2019-08-31 08:48] LABS: BILIRUBIN,TOTAL 1.3 MG/DL (0.1-1.0); CALCIUM 8.6 MG/DL (8.5-10.1); CREATININE SERUM 1.49 MG/DL (0.60-1.30)
== END 2019-09-01 | disposition home or self-care (01) ==
LOC: ONC 07:59
PROVIDERS: ATTEND Internal Medicine Hematology & Oncology
DX: D50.9 Iron deficiency anemia, unspecified (principal); I25.10 Atherosclerotic heart disease of native coronary artery without angina pectoris; N18.3 Chronic kidney disease, stage 3 (moderate); D69.6 Thrombocytopenia, unspecified; Z79.899 Other long term (current) drug therapy
CPT/HCPCS: 80053; 82728; 85025

== ENCOUNTER → 2019-09-03 | Outpatient (CLI) | payer MEDICARE | LOC: EDSTATUS 09-02 09:28 → ONC 09:31 | PROVIDERS: ATTEND Internal Medicine Hematology & Oncology | DX: D50.9 Iron deficiency anemia, unspecified (principal); I25.10 Atherosclerotic heart disease of native coronary artery without angina pectoris; D69.6 Thrombocytopenia, unspecified; N18.3 Chronic kidney disease, stage 3 (moderate) | CPT/HCPCS: 99213 ==

== ENCOUNTER → 2020-02-25 | Outpatient (CLI) | payer MEDICARE ==
[2020-02-25 09:13] LABS: BASOPHILS # (AUTO) 0.1 10^3/uL (0.0-0.1); BASOPHILS % (AUTO) 1 % (0-10); EOSINOPHILS # (AUTO) 0.1 10^3/uL (0.0-0.3); EOSINOPHILS % (AUTO) 1 % (0-10); HEMATOCRIT 45 % (40-54); HEMOGLOBIN 14.8 g/dL (13.3-17.7); LYMPHOCYTES # (AUTO) 1.3 10^3/uL (1.0-4.0); LYMPHOCYTES % (AUTO) 15 % (12-44); MEAN CORPUSCULAR HEMOGLOBIN 29 pg (25-34); MEAN CORPUSCULAR HGB CONC 33 g/dL (32-36); MEAN CORPUSCULAR VOLUME 87 fL (80-99); MONOCYTES # (AUTO) 0.8 10^3/uL (0.0-1.0); MONOCYTES % (AUTO) 9 % (0-12); NEUTROPHILS # (AUTO) 6.5 10^3/uL (1.8-7.8); NEUTROPHILS % (AUTO) 73 % (42-75); PLATELET COUNT 118 10^3/uL (130-400); WHITE BLOOD COUNT 8.9 10^3/uL (4.3-11.0)
[2020-02-25 09:23] LABS: ALBUMIN 3.9 GM/DL (3.2-4.5); BILIRUBIN,TOTAL 1.1 MG/DL (0.1-1.0); CALCIUM 8.6 MG/DL (8.5-10.1); CREATININE SERUM 1.23 MG/DL (0.60-1.30); POTASSIUM 4.1 MMOL/L (3.6-5.0)
== END ==
LOC: ONC 08:48
PROVIDERS: ATTEND Internal Medicine Hematology & Oncology
DX: D64.9 Anemia, unspecified (principal); D50.0 Iron deficiency anemia secondary to blood loss (chronic); K59.00 Constipation, unspecified; I25.10 Atherosclerotic heart disease of native coronary artery without angina pectoris; N18.30 Chronic kidney disease, stage 3 unspecified; Z86.2 Personal history of diseases of the blood and blood-forming organs and certain disorders involving the immune mechanism
CPT/HCPCS: 80053; 82728; 85025

== ENCOUNTER → 2020-03-03 | Outpatient (CLI) | payer MEDICARE | LOC: ONC 09:16 | PROVIDERS: ATTEND Internal Medicine Hematology & Oncology | DX: D50.0 Iron deficiency anemia secondary to blood loss (chronic) (principal); N18.30 Chronic kidney disease, stage 3 unspecified; Z86.39 Personal history of other endocrine, nutritional and metabolic disease | CPT/HCPCS: 99213 ==

== ENCOUNTER → 2020-08-24 | Outpatient (CLI) | payer MEDICARE ==
--- NOTE | 2020-08-24 12:14 | Diagnostic Imaging Report ---
PROCEDURE: CT head and CT cervical spine without contrast. TECHNIQUE: Multiple contiguous axial images were obtained through the brain and cervical spine without the use of intravenous contrast. Sagittal and coronal reformations through the cervical spine were then performed. Auto Exposure Controls were utilized during the CT exam to meet ALARA standards for radiation dose reduction. INDICATION: Dizziness and head and neck trauma. No prior studies are available for comparison. CT HEAD: Ventricles and sulci are within normal limits. No sulcal effacement or midline shift is identified. No acute intra-axial or extra-axial hemorrhage is detected. Cisterns are patent. The visualized paranasal sinuses are clear. IMPRESSION: No acute intracranial process is detected. CT CERVICAL SPINE: Curvature and alignment of the cervical spine is normal. There is multilevel degenerative disc and facet disease. Variable disc space narrowing and marginal spurring is noted, greatest at C4-C5 and C5-C6 levels. Facet arthropathy is greatest on the right side at C2-C3, C3-C4 and C4-C5 levels. No fractures are identified. Prevertebral tissues are within normal limits. Odontoid is intact. IMPRESSION: Cervical spondylosis. No acute bony abnormality is detected. Dictated by: Dictated on workstation # [id number]
== END ==
LOC: RAD 10:45
PROVIDERS: ATTEND Family Medicine
DX: M47.812 Spondylosis without myelopathy or radiculopathy, cervical region (principal); S09.90XA Unspecified injury of head, initial encounter; X58.XXXA Exposure to other specified factors, initial encounter
CPT/HCPCS: 70450; 72125

== ENCOUNTER 2020-09-01 09:25 | Outpatient (RCR) | payer MEDICARE ==
[2020-08-11 13:39] LABS: BASOPHILS # (AUTO) 0.1 10^3/uL (0.0-0.1); BASOPHILS % (AUTO) 1 % (0-10); EOSINOPHILS # (AUTO) 0.1 10^3/uL (0.0-0.3); HEMATOCRIT 44 % (40-54); HEMOGLOBIN 14.2 g/dL (13.3-17.7); LYMPHOCYTES # (AUTO) 1.6 10^3/uL (1.0-4.0); LYMPHOCYTES % (AUTO) 21 % (12-44); MEAN CORPUSCULAR HEMOGLOBIN 27 pg (25-34); MEAN CORPUSCULAR HGB CONC 32 g/dL (32-36); MONOCYTES % (AUTO) 10 % (0-12); WHITE BLOOD COUNT 7.6 10^3/uL (4.3-11.0)
[2020-08-11 13:58] LABS: EOSINOPHILS % (AUTO) 1 % (0-10); MEAN CORPUSCULAR VOLUME 85 fL (80-99); MONOCYTES # (AUTO) 0.7 10^3/uL (0.0-1.0); NEUTROPHILS # (AUTO) 5.1 10^3/uL (1.8-7.8); NEUTROPHILS % (AUTO) 67 % (42-75); PLATELET COUNT 122 10^3/uL (130-400)
[2020-08-11 13:59] LABS: ALBUMIN 3.8 GM/DL (3.2-4.5); BILIRUBIN,TOTAL 1.1 MG/DL (0.1-1.0); CREATININE SERUM 1.48 MG/DL (0.60-1.30); POTASSIUM 3.9 MMOL/L (3.6-5.0); TOTAL PROTEIN 6.9 GM/DL (6.4-8.2)
== END 2020-11-09 | disposition home or self-care (01) ==
LOC: ONC 09:25
PROVIDERS: ATTEND Internal Medicine Hematology & Oncology
DX: D50.0 Iron deficiency anemia secondary to blood loss (chronic) (principal); I25.10 Atherosclerotic heart disease of native coronary artery without angina pectoris; I49.9 Cardiac arrhythmia, unspecified; N18.30 Chronic kidney disease, stage 3 unspecified; Z79.01 Long term (current) use of anticoagulants; Z86.2 Personal history of diseases of the blood and blood-forming organs and certain disorders involving the immune mechanism
CPT/HCPCS: 80053; 82728; 85025; 99213

== ENCOUNTER 2020-12-27 16:11 | Emergency (ER) | payer MEDICARE ==
[~2020-12-27] VITALS: Ht 167 cm; Wt 83.9 kg
[~2020-12-27 16:11] MED LIST changes: -IPRA3AMP31 IH
--- NOTE | 2020-12-27 16:53 | ED Respiratory ---
General Chief Complaint: Respiratory Problems Stated Complaint: CHEST PAIN, SOB Nursing Triage Note: PT PRESENTS TO ED WITH COMPLAINTS OF COUGH/ CONGESTION, LOW GRADE FEVER, CP WITH COUGHING SINCE LAST SATURDAY. PT WAS HERE FOR OUT PATIENT X-RAY AND DECIDED TO GET CHECKED OUT AFTER GETTING IT DONE. Source: patient Exam Limitations: no limitations History of Present Illness Date Seen by Provider: Dec 27, 2020 Time Seen by Provider: 19:57 Initial Comments Patient is a 80-year-old male who presents ED with shortness of breath, cough and right-sided chest pain. Symptoms over the past week and a half. Worsening cough with greenish-yellow sputum production. Reports right-sided chest pain w ith a cough. History of pacemaker, defibrillator, coronary artery disease. Denies of any shortness of breath at this time. This occurs with the coughing. Patient states his with similar symptoms. Up-to-date on his Covid vaccines. Denies nausea, vomiting, diarrhea. States he feels bloated as he is coughing up air. Concerning for pneumonia. Denies history of COPD, asthma. Reports low-grade temperature. Denies headache, dizziness, visual changes, lower extremity swelling. Allergies and Home Medications Allergies Coded Allergies: No Known Drug Allergies (Unverified , 01/07/12) Patient Home Medication List Home Medication List Reviewed: Yes Alprazolam (Xanax) 0.25 Mg Tablet, 1-2 TAB PO Q6H PRN for ANXIETY Prescribed by: LEANN HWANG on 03/31/162141 Clopidogrel Bisulfate (Clopidogrel) 75 Mg Tablet, 75 MG PO, (Reported) Entered as Reported by: BIGG APPLE on 01/07/12 0036 Fluorometholone (Fluorometholone) 5 Ml Drops.susp, 5 ML OP, (Reported) Entered as Reported by: BIGG APPLE on 01/07/12 0040 Hydrocodone Bit/Acetaminophen (Lortab 5 Mg Tablet) 1 Tab Tab, 1 EACH PO Q4H PRN for PAIN-MODERATE Prescribed by: KAYLEIGH AVENDANO on 08/20/172015 Ipratropium/Albuterol Sulfate (Iprat-Albut 0.5-3(2.5) mg/3 ml) 3 Ml Ampul.neb, 3 ML IH Q4H PRN for SHORTNESS OF BREATH Prescribed by: KATHY MADRID on 12/27/20 184 Latanoprost (Latanoprost) 2.5 Ml Drops, 2.5 ML OP, (Reported) Entered as Reported by: BIGG APPLE on 01/07/1239 Prednisone (Prednisone) 20 Mg Tab, 40 MG PO DAILY Prescribed by: KAYLEIGH AVENDANO on 08/20/172015 Ranolazine (Ranexa ER 1000mg) 1,000 Mg Tab.sr.12h, 500 MG PO BID, (Reported) Entered as Reported by: DOMINIQUE MCMILLAN on 02/25/141115 Rivaroxaban (Xarelto Tablet) 20 Mg Tablet, 20 MG PO DAILY, (Reported) Entered as Reported by: DOMINIQUE MCMILLAN on 02/25/141115 Simvastatin (Simvastatin) 20 Mg Tablet, 20 MG PO, (Reported) Entered as Reported by: BIGG APPLE on 01/07/1239 Valsartan/Hydrochlorothiazide (Valsartan-Hctz 160-12.5 Mg Tab) 1 Each Tablet, 1 EACH PO, (Reported) Entered as Reported by: BIGG APPLE on 01/07/1236 Review of Systems Review of Systems Constitutional: No chills, No diaphoresis; malaise, weakness EENTM: No ear discharge, No hearing loss, No ear pain Respiratory: cough, dyspnea on exertion; No hemoptysis, No orthopnea Cardiovascular: chest pain Gastrointestinal: see HPI; No abdominal pain Genitourinary: No decreased output, No discharge, No dysuria, No frequency Musculoskeletal: No back pain, No gout, No joint pain Skin: No change in color, No change in hair/nails Psychiatric/Neurological: Denies Anxiety, Denies Depressed All Other Systems Reviewed Negative Unless Noted: Yes Past Vbfdomf-Lkkwfk-Basoji Hx Patient Social History Tobacco Use?: No Substance use?: No Alcohol Use?: No Pt feels they are or have been: No Immunizations Up To Date Influenza Vaccine Up-to-Date: No; Not Current First/Initial COVID19 Vaccinat: feb 2020 Second COVID19 Vaccination Shravan: mar 14 2020 COVID19 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 Surgeries: Yes (CARDIAC CATH-STENTS) Appendectomy, Cardiac, Coronary Stent, Defibrillator, Pacemaker Respiratory: Yes Pneumonia Cardiac: Yes (PACEMAKER/DEFIBRILLATOR) Atrial Fibrillation, Coronary Artery Disease, High Cholesterol, Hypertension, Irregular Heartbeat Neurological: No Gastrointestinal: No Musculoskeletal: No Endocrine: No Cataract Cancer: No Psychosocial: No Integumentary: No Blood Disorders: No Family Medical History FH: breast cancer 19 MOTHER FH: lung cancer 19 FATHER No Pertinent Family Hx Physical Exam Vital Signs - First Documented 12/27/20 12/27/20 16:36 18:14 Temp 37.0 Pulse 65 Resp 18 B/P (MAP) 165/80 (108) Pulse Ox 97 O2 Delivery Room Air Capillary Refill : Less Than 3 Seconds Height: 5'8" Weight: 180lbs. 0.0oz. 81.490852rh; 30.00 BMI Method:Stated General Appearance: WD/WN Eyes: Bilateral Eye Normal Inspection, Bilateral Eye PERRL, Bilateral Eye EOMI HEENT: PERRL/EOMI, normal ENT inspection, TMs normal Neck: non-tender, full range of motion, supple Respiratory: chest non-tender, decreased breath sounds, wheezing Cardiovascular: regular rate, rhythm, no edema, no gallop, no JVD Gastrointestinal: normal bowel sounds, non tender, soft, no organomegaly Extremities: normal range of motion, non-tender, normal inspection Neurologic/Psychiatric: director of market intelligence II-XII nml as tested, no motor/sensory deficits, alert, normal mood/affect Skin: normal color, warm/dry Progress/Results/Core Measures Suspected Sepsis SIRS Temperature: Pulse: 65 Respiratory Rate: 18 Laboratory Tests 12/27/20 16:32: White Blood Count 10.7 Blood Pressure 165 /80 Mean: 108 Laboratory Tests 12/27/20 16:32: Creatinine 1.21, INR Comment 1.2, Platelet Count 154, Total Bilirubin 1.5H Results/Orders Lab Results Laboratory Tests Test 12/27/20 16:32 12/27/20 16:33 Range/Units White Blood Count 10.7 4.3-11.0 10^3/uL Red Blood Count 5.11 4.30-5.52 10^6/uL Hemoglobin 14.3 13.3-17.7 g/dL Hematocrit 43 40-54 % Mean Corpuscular Volume 85 80-99 fL Mean Corpuscular Hemoglobin 28 25-34 pg Mean Corpuscular Hemoglobin Concent 33 32-36 g/dL Red Cell Distribution Width 13.7 10.0-14.5 % Platelet Count 154 130-400 10^3/uL Mean Platelet Volume 9.0 9.0-12.2 fL Immature Granulocyte % (Auto) 1 % Neutrophils (%) (Auto) 73 42-75 % Lymphocytes (%) (Auto) 12 12-44 % Monocytes (%) (Auto) 12 0-12 % Eosinophils (%) (Auto) 2 0-10 % Basophils (%) (Auto) 1 0-10 % Neutrophils # (Auto) 7.8 1.8-7.8 10^3/uL Lymphocytes # (Auto) 1.3 1.0-4.0 10^3/uL Monocytes # (Auto) 1.3 H 0.0-1.0 10^3/uL Eosinophils # (Auto) 0.2 0.0-0.3 10^3/uL Basophils # (Auto) 0.1 0.0-0.1 10^3/uL Immature Granulocyte # (Auto) 0.1 0.0-0.1 10^3/uL Prothrombin Time 15.1 H 12.2-14.7 SEC INR Comment 1.2 0.8-1.4 Activated Partial Thromboplast Time 35 24-35 SEC Sodium Level 137 135-145 MMOL/L Potassium Level 4.2 3.6-5.0 MMOL/L Chloride Level 106 98-107 MMOL/L Carbon Dioxide Level 21 21-32 MMOL/L Anion Gap 10 5-14 MMOL/L Blood Urea Nitrogen 14 7-18 MG/DL Creatinine 1.21 0.60-1.30 MG/DL Estimat Glomerular Filtration Rate 58 BUN/Creatinine Ratio 12 Glucose Level 133 H 70-105 MG/DL Calcium Level 8.5 8.5-10.1 MG/DL Corrected Calcium 8.6 8.5-10.1 MG/DL Magnesium Level 2.2 1.6-2.4 MG/DL Total Bilirubin 1.5 H 0.1-1.0 MG/DL Aspartate Amino Transf (AST/SGOT) 26 5-34 U/L Alanine Aminotransferase (ALT/SGPT) 26 0-55 U/L Alkaline Phosphatase 116 40-136 U/L Myoglobin 81.1 10.0-92.0 NG/ML Troponin I < 0.028 <0.028 NG/ML B-Type Natriuretic Peptide 186.5 H <100.0 PG/ML Total Protein 7.2 6.4-8.2 GM/DL Albumin 3.9 3.2-4.5 GM/DL SARS-CoV-2 RNA (RT-PCR) Not Detected Not Detecte My Orders Orders - NAGA LEMOS Covid 19 Inhouse Test (12/27/20 16:49) Cbc With Automated Diff (12/27/20 16:50) Magnesium (12/27/20 16:50) Ekg Tracing (12/27/20 16:50) Comprehensive Metabolic Panel (12/27/20 16:50) Myoglobin Serum (12/27/20 16:50) Protime With Inr (12/27/20 16:50) Partial Thromboplastin Time (12/27/20 16:50) Ed Iv/Invasive Line Start (12/27/20 16:50) BNP (12/27/20 16:50) Aspirin Chewable Tablet (Baby Aspirin Ch (12/27/20 17:00) Troponin I (12/27/20 16:32) Albuterol/Ipra Inhalation Soln (Duoneb I (12/27/20 18:00) Svn Small Volume Nebulizer (12/27/20 17:56) Albuterol/Ipra Inhalation Soln (Duoneb I (12/27/20 18:30) Svn Small Volume Nebulizer (12/27/20 18:22) Albuterol/Ipra Inhalation Soln (Duoneb I (12/27/20 18:25) Medications Given in ED Current Medications Medications Dose Ordered Sig/Manohar Route Start Time Stop Time Status Last Admin Dose Admin Albuterol/ Ipratropium 3 ml ONCE ONCE INH 12/27/20 18:00 12/27/20 18:01 DC 12/27/20 18:13 3 ML Albuterol/ Ipratropium 3 ml ONCE ONCE INH 12/27/20 18:30 12/27/20 18:31 DC 12/27/20 18:29 3 ML Aspirin 324 mg ONCE ONCE PO 12/27/20 17:00 12/27/20 17:01 DC 12/27/20 17:18 324 MG Vital Signs/I&O 12/27/20 12/27/20 12/27/20 16:36 18:14 18:50 Temp 37.0 Pulse 65 64 Resp 18 20 B/P (MAP) 165/80 (108) 168/88 Pulse Ox 97 96 98 O2 Delivery Room Air Capillary Refill : Less Than 3 Seconds Blood Pressure Mean: 108 ECG Initial ECG Impression Date: Dec 27, 2020 Initial ECG Impression Time: 17:10 Comment AV dual paced complexes. 65 bpm, QRS duration 197 MS, QTC 550 MS. Departure Communication (Admissions) Patient with URI symptoms. Cough, right-sided chest pain with the cough. Patient was concerned for the coughing fits resulting in him having difficulty breathing. Patient vital signs stable on arrival. Chest x-ray performed outpatient was negative for acute abnormality after discussing with radiology. Patient cardiac work-up unremarkable besides slightly elevated BNP. Improvement from previous lab work in 2019. Chest x-ray did not show any evidence of pulmonary edema, pneumonia. Normal troponin. Denies history of COPD. Does have pacemaker and defibrillator. He states the chest pain occurs with a cough. Covid negative. Patient was given DuoNeb breathing treatment. Improvement of symptoms after DuoNeb. Discussed patient with Dr. Troncoso. Discussed outpatient follow-up. He is currently on antibiotic amoxicillin and codeine for cough. If any worsening symptoms strongly recommend returning back to the ED for further evaluation. Impression Primary Impression: Upper respiratory infection Disposition: 01 HOME, SELF-CARE Condition: Improved Departure-Patient Inst. Decision time for Depature: 18:41 Referrals: ROSA TRONCOSO MD (PCP/Family) Primary Care Physician Patient Instructions: Upper Respiratory Infection ED Scripts Ipratropium/Albuterol Sulfate (Iprat-Albut 0.5-3(2.5) mg/3 ml) 3 Ml Ampul.neb 3 ML IH Q4H PRN for SHORTNESS OF BREATH for 7 Days, #30 EACH Prov: NAGA LEMOS 12/27/20 NAGA LEMOS Dec 27, 2020 16:53
[2020-12-27 16:59] LABS: BASOPHILS # (AUTO) 0.1 10^3/uL (0.0-0.1); BASOPHILS % (AUTO) 1 % (0-10); EOSINOPHILS # (AUTO) 0.2 10^3/uL (0.0-0.3); EOSINOPHILS % (AUTO) 2 % (0-10); HEMATOCRIT 43 % (40-54); HEMOGLOBIN 14.3 g/dL (13.3-17.7); LYMPHOCYTES # (AUTO) 1.3 10^3/uL (1.0-4.0); LYMPHOCYTES % (AUTO) 12 % (12-44); MEAN CORPUSCULAR HEMOGLOBIN 28 pg (25-34); MEAN CORPUSCULAR HGB CONC 33 g/dL (32-36); MEAN CORPUSCULAR VOLUME 85 fL (80-99); MONOCYTES # (AUTO) 1.3 10^3/uL (0.0-1.0); MONOCYTES % (AUTO) 12 % (0-12); NEUTROPHILS # (AUTO) 7.8 10^3/uL (1.8-7.8); NEUTROPHILS % (AUTO) 73 % (42-75); PLATELET COUNT 154 10^3/uL (130-400); WHITE BLOOD COUNT 10.7 10^3/uL (4.3-11.0)
[2020-12-27] MEDS ORDERED: ASPIRIN 81 MG CHEW (CHILDREN'S ASA) PO ONE (17:00)
[2020-12-27 17:04] LABS: INR 1.2 (0.8-1.4); PROTHROMBIN TIME PATIENT 15.1 SEC (12.2-14.7)
[2020-12-27 17:32] LABS: ALBUMIN 3.9 GM/DL (3.2-4.5); CHLORIDE 106 MMOL/L (98-107); POTASSIUM 4.2 MMOL/L (3.6-5.0); SODIUM 137 MMOL/L (135-145)
[2020-12-27 17:33] LABS: CALCIUM 8.5 MG/DL (8.5-10.1)
[2020-12-27 17:34] LABS: GLUCOSE 133 MG/DL (70-105); TOTAL PROTEIN 7.2 GM/DL (6.4-8.2)
[2020-12-27 17:35] LABS: CARBON DIOXIDE 21 MMOL/L (21-32)
[2020-12-27 17:36] LABS: BILIRUBIN,TOTAL 1.5 MG/DL (0.1-1.0)
[2020-12-27 17:38] LABS: ALKALINE PHOSPHATASE 116 U/L (40-136); CREATININE SERUM 1.21 MG/DL (0.60-1.30); GFR ESTIMATED 58
[2020-12-27 17:39] LABS: BUN/CREATININE RATIO 12
[2020-12-27 17:41] LABS: ALANINE AMINOTRANSFERASE 26 U/L (0-55); MAGNESIUM 2.2 MG/DL (1.6-2.4)
[2020-12-27] MEDS ORDERED: RT-ALBUTEROL/IPRATROPIUM 3 ML (DUONEB) VIAL INH ONE ×2 (18:00→18:30)
[2020-12-27] MEDS ORDERED: RT-ALBUTEROL/IPRATROPIUM 3 ML (DUONEB) VIAL ONE (18:25)
[2020-12-27] MEDS ORDERED: IPRA3AMP31 IH (18:42)
[2020-12-27 18:50] VITALS: BP 168/88
== END 2020-12-27 18:50 | disposition home or self-care (01) ==
LOC: EDUNIT# 16:11 → ER 16:13
DX: J06.9 Acute upper respiratory infection, unspecified (principal); I10 Essential (primary) hypertension; E78.00 Pure hypercholesterolemia, unspecified; I25.10 Atherosclerotic heart disease of native coronary artery without angina pectoris; I48.91 Unspecified atrial fibrillation; Z79.01 Long term (current) use of anticoagulants; Z20.822 Contact with and (suspected) exposure to COVID-19; Z79.899 Other long term (current) drug therapy
CPT/HCPCS: 36415; 80053; 83735; 83874; 83880; 84484; 85025; 85610; 85730; 87636; 93005; 94640

== ENCOUNTER → 2020-12-27 | Outpatient (CLI) | payer MEDICARE ==
[~2020-12-27] MED LIST changes: +IPRA3AMP31 IH
--- NOTE | 2020-12-27 17:07 | Diagnostic Imaging Report ---
INDICATION: Cough and congestion as well shortness of air. TIME OF EXAM: 3:59 PM CORRELATION is made with prior chest from 01/11/2019. Cardiac defibrillator is in place. Lungs are clear. No infiltrates are seen. There is no effusion or pneumothorax. IMPRESSION: No acute cardiopulmonary process is detected. Dictated by: Dictated on workstation # [id number]
== END ==
LOC: RAD 15:30
PROVIDERS: ATTEND Family Medicine
DX: R05.9 Cough, unspecified (principal); R06.02 Shortness of breath; R09.89 Other specified symptoms and signs involving the circulatory and respiratory systems
CPT/HCPCS: 71046

== ENCOUNTER 2021-01-01 01:33 | Emergency (ER) | payer MEDICARE ==
[~2021-01-01] VITALS: Ht 168 cm; Wt 84.0 kg
[~2021-01-01 01:33] MED LIST changes: +IPRA3AMP31 IH
[2021-01-01] MEDS ORDERED: TETRACAINE 0.5% OPHTH SOLN 4 ML BTL (SINGLE DOSE ONLY) OP ONE (02:00)
--- NOTE | 2021-01-01 02:04 | ED General ---
General Stated Complaint: COUGH,DISTORTED VISION-STS SEES SNOW Source of Information: Patient Exam Limitations: No Limitations History of Present Illness Date Seen by Provider: Jan 01, 2021 Time Seen by Provider: 01:48 Initial Comments Patient is a 80-year-old male who presents to the emergency department today with a chief complaint of visual changes gradually over the last several hours. Patient states that he "sees snow" in both eyes. Patient states the longer that he leaves his eyes open and stares at something the heavier the "snow" will appear. He denies eye pain, he denies blurry vision. He states occasionally it looks like "water is running" in his visual ricci. He did have the sensation at one point of seeing a "figure" in his left peripheral vision. He denies headache. He denies unilateral weakness, numbness or tingling. Has been treated with amoxicillin recently for an upper respiratory infection. Has a history of hypertension coronary artery disease with stents. Denies chest pain or shortness of breath. No nausea vomiting or diarrhea. Wears glasses only for reading. Has been to [facility]. Last visit was about 2 months ago. 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 He has recently been on oral steroids (last week). His states that he has been coughing "alot" today. and has been for a couple of weeks. All other review of systems reviewed and negative except as stated Timing/Duration: 1-3 Hours Severity: Moderate Associated Systoms: Cough ((recent URI)) Allergies and Home Medications Allergies Coded Allergies: No Known Drug Allergies (Unverified , 01/07/12) Patient Home Medication List Home Medication List Reviewed: Yes Alprazolam (Xanax) 0.25 Mg Tablet, 1-2 TAB PO Q6H PRN for ANXIETY Prescribed by: LEANN HWANG on 03/31/16 214 Clopidogrel Bisulfate (Clopidogrel) 75 Mg Tablet, 75 MG PO, (Reported) Entered as Reported by: BIGG APPLE on 01/07/12 0036 Fluorometholone (Fluorometholone) 5 Ml Drops.susp, 5 ML OP, (Reported) Entered as Reported by: BIGG APPLE on 01/07/12 0040 Hydrocodone Bit/Acetaminophen (Lortab 5 Mg Tablet) 1 Tab Tab, 1 EACH PO Q4H PRN for PAIN-MODERATE Prescribed by: KAYLEIGH AVENDANO on 08/20/172015 Ipratropium/Albuterol Sulfate (Iprat-Albut 0.5-3(2.5) mg/3 ml) 3 Ml Ampul.neb, 3 ML IH Q4H PRN for SHORTNESS OF BREATH Prescribed by: KATHY MADRID on 12/27/20 1842 Latanoprost (Latanoprost) 2.5 Ml Drops, 2.5 ML OP, (Reported) Entered as Reported by: BIGG APPLE on 01/07/1239 Prednisone (Prednisone) 20 Mg Tab, 40 MG PO DAILY Prescribed by: KAYLEIGH AVENDANO on 08/20/172015 Ranolazine (Ranexa ER 1000mg) 1,000 Mg Tab.sr.12h, 500 MG PO BID, (Reported) Entered as Reported by: DOMINIQUE MCMILLAN on 02/25/14 111 Rivaroxaban (Xarelto Tablet) 20 Mg Tablet, 20 MG PO DAILY, (Reported) Entered as Reported by: DOMINIQUE MCMILLAN on 02/25/141115 Simvastatin (Simvastatin) 20 Mg Tablet, 20 MG PO, (Reported) Entered as Reported by: BIGG APPLE on 01/07/1239 Valsartan/Hydrochlorothiazide (Valsartan-Hctz 160-12.5 Mg Tab) 1 Each Tablet, 1 EACH PO, (Reported) Entered as Reported by: BIGG APPLE on 01/07/1236 Review of Systems Review of Systems Constitutional: see HPI EENTM: other (sees "snow" in both eyes; ) Respiratory: cough Cardiovascular: no symptoms reported Gastrointestinal: no symptoms reported Genitourinary: no symptoms reported Musculoskeletal: no symptoms reported Skin: no symptoms reported Psychiatric/Neurological: Other (vision deficit - sees "snow storm" in both eyes) All Other Systems Reviewed Negative Unless Noted: Yes Past Mpzwsbb-Imsbqp-Xsoiyh Hx Immunizations Up To Date First/Initial COVID19 Vaccinat: feb 2020 Second COVID19 Vaccination Shravan: mar 14 2020 Seasonal Allergies Seasonal Allergies: Yes Past Medical History Surgery/Hospitalization HX: sx: pacemaker/defib, stents x 3 pmh: htn, allergies/sinus, gerd, high chol. Surgeries: Yes (CARDIAC CATH-STENTS) Appendectomy, Cardiac, Coronary Stent, Defibrillator, Pacemaker Respiratory: Yes Pneumonia Cardiac: Yes (PACEMAKER/DEFIBRILLATOR) Atrial Fibrillation, Coronary Artery Disease, High Cholesterol, Hypertension, Irregular Heartbeat Neurological: No Gastrointestinal: No Musculoskeletal: No Endocrine: No Cataract Cancer: No Psychosocial: No Integumentary: No Blood Disorders: No Family Medical History FH: breast cancer 19 MOTHER FH: lung cancer 19 FATHER No Pertinent Family Hx Physical Exam Vital Signs Vital Signs - First Documented 01/01/21 01:42 Temp 36.0 Pulse 70 Resp 16 B/P (MAP) 185/111 (135) Pulse Ox 98 O2 Delivery Room Air Capillary Refill : Height, Weight, BMI Height: 5'8" Weight: 180lbs. 0.0oz. [id number]; 30.00 BMI Method:Stated General Appearance: No Apparent Distress, WD/WN, Anxious (mildly anxious) Eyes: Bilateral Eye Normal Inspection, Bilateral Eye PERRL, Bilateral Eye EOMI, Bilateral Eye Other (slight nystagmus to the left) HEENT: PERRL/EOMI, Pharynx Normal Neck: Normal Inspection Respiratory: Lungs Clear, Normal Breath Sounds, No Accessory Muscle Use, No Respiratory Distress Cardiovascular: Regular Rate, Rhythm, Normal Peripheral Pulses Gastrointestinal: Non Tender, Soft Extremity: Normal Inspection Neurologic/Psychiatric: Alert, Oriented x3, No Motor/Sensory Deficits, Normal Mood/Affect, institutional aide II-XII Norm as Tested Skin: Normal Color, Warm/Dry Progress/Results/Core Measures Suspected Sepsis SIRS Temperature: Pulse: Respiratory Rate: Blood Pressure / Mean: Results/Orders My Orders Orders - CHACORTA WILKERSON MD Ct Head Wo (01/01/21 01:57) Tetracaine 0.5% Ophth Delfina Sdv (Tetracai (01/01/21 02:00) Medications Given in ED Current Medications Medications Dose Ordered Sig/Manohar Route Start Time Stop Time Status Last Admin Dose Admin Tetracaine HCl 1 OR 2 DROPS INTO AFFEC... ONCE ONCE OP 01/01/21 02:00 01/01/21 02:01 DC 01/01/21 02:24 4 ML Vital Signs/I&O 01/01/21 01:42 Temp 36.0 Pulse 70 Resp 16 B/P (MAP) 185/111 (135) Pulse Ox 98 O2 Delivery Room Air Capillary Refill : Progress Note #1: Time: 02:04 Progress Note Visual Acuity 20/100 right; 20/50 left; 20/40 together; patient states that the visual "snow" seems worse in the left eye; pressures Right 25/26/27 pressures left eye 27/27/26 Progress Note #2: Time: 03:08 Progress Note Patient has been resting comfortably throughout his ED visit. His CT scan is negative for any acute intracranial abnormalities. His blood pressure has been a little elevated while here. No complaints of weakness, numbness, headache. No strokelike concerns. Patient continues to have "snowy vision". His intr aocular pressures are borderline at 25-27. Visual acuity is as recorded. I did attempt to get a hold of optometry on-call and was unsuccessful. They do follow at [facility]. I recommended that they follow-up first thing Saturday at the [facility]. I have given them good return precautions to include headache, vomiting, loss of visual ricci or any other acute changes they need to come back to the emergency room for reevaluation. I do not believe this "snowy vision" is suggestive of cerebrovascular accident. Both the patient and his seem comfortable with this plan of care. All questions are sought and answered. He does feel improvement after finishing his course of amoxicillin for his URI. His cough is improving. I recommended some Mucinex to help clear secretions. He is continuing to use his Tylenol with codeine. Patient stable for discharge Diagnostic Imaging Diagonstic Imaging: CT Plain Films/CT/US/NM/MRI: head Comments CT Brain per Stat Rad : negative for acute intracranial abnormality Departure Impression Primary Impression: Visual disturbance Disposition: 01 HOME, SELF-CARE Condition: Stable (ERASED) Departure-Patient Inst. Decision time for Depature: 03:10 Referrals: ROSA TRONCOSO MD (PCP/Family) Primary Care Physician Add. Discharge Instructions: Continue your daily medications as prescribed. If you have flashes of light in the eyes, loss of vision or a part of your vision goes dark, eye pain or severe headache, please come back to the Emergency Department for re-evaluation. Please follow up first thing Saturday with [facility]. You can use some [id number] Mucinex to help thin secretions and help with cough. CHACORTA WILKERSON MD Jan 01, 2021 02:04
[2021-01-01 03:40] VITALS: BP 168/98
--- NOTE | 2021-01-01 04:35 | Diagnostic Imaging Report ---
PROCEDURE: CT head without contrast. TECHNIQUE: Multiple contiguous axial images were obtained through the brain without the use of intravenous contrast. Auto Exposure Controls were utilized during the CT exam to meet ALARA standards for radiation dose reduction. INDICATION: Acute visual changes. COMPARISON: 08/24/2020 FINDINGS: No hyperdense hemorrhage or space-occupying mass. No hydrocephalus or midline shift. The basilar cisterns are normal. Downs-white matter differentiation is well preserved. The mastoid air cells are clear. Mucosal thickening of bilateral maxillary, left ethmoid and left frontal sinuses. No focal osseous abnormality of the calvarium. IMPRESSION: 1. No acute intracranial process. 2. Findings are in agreement with the preliminary report. Dictated by: Dictated on workstation # [id number]
== END 2021-01-01 03:35 | disposition home or self-care (01) ==
LOC: EDUNIT# 01:33 → ER 01:37
DX: H53.9 Unspecified visual disturbance (principal); I10 Essential (primary) hypertension; I25.10 Atherosclerotic heart disease of native coronary artery without angina pectoris; E78.00 Pure hypercholesterolemia, unspecified; I48.91 Unspecified atrial fibrillation; Z79.01 Long term (current) use of anticoagulants; Z79.899 Other long term (current) drug therapy
CPT/HCPCS: 70450

== ENCOUNTER → 2021-01-18 | Outpatient (CLI) | payer MEDICARE ==
[~2021-01-18] MED LIST changes: +RT-ALBUTEROL SULF 2.5 MG/3 ML PRE-MIX VIAL INH ONE
== END ==
LOC: RT 09:15
PROVIDERS: ATTEND Internal Medicine Critical Care Medicine
DX: R06.02 Shortness of breath (principal)
CPT/HCPCS: 94060; 94621; 94726; 94729

== ENCOUNTER → 2021-03-03 | Outpatient (CLI) | payer MEDICARE ==
[~2021-03-03] MED LIST changes: -RT-ALBUTEROL SULF 2.5 MG/3 ML PRE-MIX VIAL INH ONE
== END ==
LOC: LABNPT 06:52
PROVIDERS: ATTEND Family Medicine
DX: R05.9 Cough, unspecified (principal); R50.9 Fever, unspecified; R09.89 Other specified symptoms and signs involving the circulatory and respiratory systems
CPT/HCPCS: 87635

== ENCOUNTER 2021-08-12 20:02 | Emergency (ER) | payer MEDICARE ==
[~2021-08-12] VITALS: Ht 167.7 cm; Wt 83.9 kg
[2021-08-12 20:30] VITALS: BP 179/85
[2021-08-12] MEDS ORDERED: HYDROcodone/APAP 7.5 MG/325 MG (LORTAB, LORCET PLUS) TABLET PO STA (20:47)
[2021-08-12] MEDS ORDERED: PENICILLIN V K 250 MG TAB PO ONE (21:00)
[2021-08-12] MEDS ORDERED: HYDROcodone/APAP 5 MG/325 MG (LORTAB) TAB PO ONE (21:00)
[2021-08-12] MEDS ORDERED: ACHD5005 PO (21:01)
[2021-08-12] MEDS ORDERED: PENI500T PO (21:01)
--- NOTE | 2021-08-12 21:02 | ED EENT ---
History of Present Illness General Chief Complaint: Dental Problems/Pain Stated Complaint: DENTAL PAIN Nursing Triage Note: pt ambulatory to room. pt states he has a ride sided tooth abscess with facial swelling and pain. pt states he has been taking tylenol and icing Source: patient Exam Limitations: no limitations History of Present Illness Date Seen by Provider: Aug 12, 2021 Time Seen by Provider: 20:56 Initial Comments Patient is a 81-year-old male who presents ED with right lower dental pain. Dental pain over the past 2 days. Described as sharp worse with eating. Radiating pain to the right ear. Patient has been taken Tylenol without much improvement. Patient has had previous teeth pulled in the past. States he has port intention and needs several teeth removed. According to she is con cerned for some right sided lower jaw swelling today. Patient does not appear toxic or septic. No headache, visual changes, fever, chest pain, shortness of breath. Allergies and Home Medications Allergies Coded Allergies: No Known Drug Allergies (Unverified , 01/07/12) Patient Home Medication List Home Medication List Reviewed: Yes Alprazolam (Xanax) 0.25 Mg Tablet, 1-2 TAB PO Q6H PRN for ANXIETY Prescribed by: LEANN HWANG on 03/31/162141 Clopidogrel Bisulfate (Clopidogrel) 75 Mg Tablet, 75 MG PO, (Reported) Entered as Reported by: BIGG APPLE on 01/07/12 0036 Fluorometholone (Fluorometholone) 5 Ml Drops.susp, 5 ML OP, (Reported) Entered as Reported by: BIGG APPLE on 01/07/12 0040 Hydrocodone Bit/Acetaminophen (Lortab 5 Mg Tablet) 1 Tab Tab, 1 EACH PO Q4H PRN for PAIN-MODERATE Prescribed by: KAYLEIGH AVENDANO on 08/20/172015 Hydrocodone/Acetaminophen (Hydrocodone-Acetamin 5-325 mg) 5 Mg-325 Mg Tablet, 1 TAB PO Q4H PRN for PAIN-MODERATE (5-7) Prescribed by: KATHY MADRID on 08/12/212101 Ipratropium/Albuterol Sulfate (Iprat-Albut 0.5-3(2.5) mg/3 ml) 3 Ml Ampul.neb, 3 ML IH Q4H PRN for SHORTNESS OF BREATH Prescribed by: KATHY MADRID on 12/27/20 1842 Latanoprost (Latanoprost) 2.5 Ml Drops, 2.5 ML OP, (Reported) Entered as Reported by: BIGG APPLE on 01/07/12 004 Penicillin V Potassium (Penicillin V Potassium) 500 Mg Tablet, 500 MG PO QID Prescribed by: KATHY MADRID on 08/12/212100 Prednisone (Prednisone) 20 Mg Tab, 40 MG PO DAILY Prescribed by: KAYLEIGH AVENDANO on 08/20/172015 Ranolazine (Ranexa ER 1000mg) 1,000 Mg Tab.sr.12h, 500 MG PO BID, (Reported) Entered as Reported by: DOMINIQUE MCMILLAN on 02/25/14 111 Rivaroxaban (Xarelto Tablet) 20 Mg Tablet, 20 MG PO DAILY, (Reported) Entered as Reported by: DOMINIQUE MCMILLAN on 02/25/14 111 Simvastatin (Simvastatin) 20 Mg Tablet, 20 MG PO, (Reported) Entered as Reported by: BIGG APPLE on 01/07/12 004 Valsartan/Hydrochlorothiazide (Valsartan-Hctz 160-12.5 Mg Tab) 1 Each Tablet, 1 EACH PO, (Reported) Entered as Reported by: BIGG APPLE on 01/07/12 0037 Review of Systems Review of Systems Constitutional: No chills, No diaphoresis, No malaise, No weakness Eyes: Denies Drainage, Denies Decreased Acuity, Denies Inflammation, Denies Pain, Denies Photophobia Ears: Denies Dizziness Nose: denies clots, denies bloody discharge, denies purulent discharge, denies serosanguinous discharge Mouth: denies loose teeth; pain Throat: denies swelling Respiratory: No cough Cardiovascular: No chest pain, No edema Gastrointestinal: No abdominal pain, No diarrhea, No nausea, No vomiting Musculoskeletal: No back pain, No joint pain Skin: No change in color All Other Systems Reviewed Negative Unless Noted: Yes Past Cnxolox-Nsupsy-Rdrfzy Hx Immunizations Up To Date First/Initial COVID19 Vaccinat: feb 2020 Second COVID19 Vaccination Shravan: mar 14 2020 Third COVID19 Vaccination Date: Seasonal Allergies Seasonal Allergies: Yes Past Medical History Surgery/Hospitalization HX: sx: pacemaker/defib, stents x 3 pmh: htn, allergies/sinus, gerd, high chol. Surgeries: Yes (CARDIAC CATH-STENTS) Appendectomy, Cardiac, Coronary Stent, Defibrillator, Pacemaker Respiratory: Yes Pneumonia Cardiac: Yes (PACEMAKER/DEFIBRILLATOR) Atrial Fibrillation, Coronary Artery Disease, High Cholesterol, Hypertension, Irregular Heartbeat Neurological: No Gastrointestinal: No Musculoskeletal: No Endocrine: No Cataract Cancer: No Psychosocial: No Integumentary: No Blood Disorders: No Family Medical History FH: breast cancer 19 MOTHER FH: lung cancer 19 FATHER No Pertinent Family Hx Physical Exam Vital Signs Vital Signs - First Documented 08/12/21 20:30 Temp 36.1 Pulse 70 B/P (MAP) 179/85 (116) Pulse Ox 98 Height, Weight, BMI Height: 5'8" Weight: 180lbs. 0.0oz. 81.990888hd; 29.00 BMI Method:Stated General Appearance: WD/WN, no apparent distress Eyes: bilateral eye normal inspection, bilateral eye PERRL, bilateral eye EOMI Ears: bilateral ear auricle normal, bilateral ear canal normal, bilateral ear TM normal Nose: normal inspection Mouth/Throat: normal mouth inspection, pharynx normal, other (Right lower molar tenderness with decay. Port intention throughout. Mild gum swelling with erythema. No fluctuant mass) Neck: non-tender, full range of motion, supple Cardiovascular: regular rate, rhythm, no edema, no gallop Respiratory: chest non-tender, lungs clear, normal breath sounds, no respiratory distress, no accessory muscle use Gastrointestinal: normal bowel sounds, non tender, soft Neurologic/Psychiatric: breaker boss II-XII nml as tested, no motor/sensory deficits, alert, normal mood/affect, oriented x 3 Skin: normal color, warm/dry Progress/Results/Core Measures Results/Orders My Orders Orders - NAGA LEMOS Hydrocodone/Apap 7.5/325 Tab (Lortab 7. (08/12/21 20:47) Penicillin Vk Tablet (Veetid Tablet) (08/12/21 21:00) Hydrocodone/Apap 5/325 Tablet (Lortab 5 (08/12/21 21:00) Rx-Hydrocodone/Apap 5-325 Mg (Rx-Vicodin (08/12/21 21:15) Medications Given in ED Current Medications Medications Dose Ordered Sig/Manohar Route Start Time Stop Time Status Last Admin Dose Admin Acetaminophen/ Hydrocodone Bitart 1 ea ONCE ONCE PO 08/12/21 21:00 08/12/21 21:01 DC 08/12/21 21:08 1 EA Acetaminophen/ Hydrocodone Bitart 1 ea ONCE ONCE PO 08/12/21 21:15 08/12/21 21:16 DC 08/12/21 21:08 1 EA Penicillin V Potassium 500 mg ONCE ONCE PO 08/12/21 21:00 08/12/21 21:01 DC 08/12/21 21:08 500 MG Vital Signs/I&O 08/12/21 20:30 Temp 36.1 Pulse 70 B/P (MAP) 179/85 (116) Pulse Ox 98 Blood Pressure Mean: 116 Departure Communication (PCP) Patient with right lower molar dental pain over the past 2 days. Radiating to the right ear right side hip. No significant swelling or erythema noted to the right side of face. Several decayed teeth. No obvious functional mass. Concern for periapical abscess to the right lower molar on the mandible. No TMJ tenderness. No scalp tenderness. Bilateral TMs clear. Patient agreed to a inferior alveolar block with success of Marcaine and xylocaine 1.5ml. Improvement of pain. Patient was given dose of pain medication initially for continued pain relief. Patient Was given dose of penicillin VK. Patient will be discharged with penicillin VK for dental infection. Will discharge with a [place] Dosepak. Discussed not operating any machinery or driving with medication. Patient was not advised to use NSAID. No improvement with Tylenol. Discussed not using Tylenol with the hydrocodone. Recommend dental outpatient follow-up. Patient has seen Dr. Olvera in the past. If any worsening redness or swelling or pain to return back to ED. Patient was hypertensive likely secondary to the pain. Improvement of blood pressure after recheck. Impression Primary Impression: Pain, dental Disposition: HOME, SELF-CARE Condition: Stable Departure-Patient Inst. Decision time for Depature: 21:00 Referrals: MARK OLVERA DDS, CHAD C MD (PCP/Family) Primary Care Physician Patient Instructions: Dental Pain Scripts Hydrocodone/Acetaminophen (Hydrocodone-Acetamin 5-325 mg) 5 Mg-325 Mg Tablet 1 TAB PO Q4H PRN for PAIN-MODERATE (5-7), #5 TAB Prov: NAGA LEMOS 08/12/21 Penicillin V Potassium (Penicillin V Potassium) 500 Mg Tablet 500 MG PO QID for 7 Days, #28 TAB Prov: NAGA LEMOS 08/12/21 NAGA LEMOS Aug 12, 2021 21:01
== END 2021-08-12 21:28 | disposition home or self-care (01) ==
LOC: EDUNIT# 20:02 → ER 20:04
DX: K08.89 Other specified disorders of teeth and supporting structures (principal)
CPT/HCPCS: 99283